=== PATIENT | female | born 1945 | race Caucasian/White ===

== ENCOUNTER 2019-11-20 09:53 | Day surgery (SDC) | payer OTHER ==
[2019-11-17 11:18] LABS: Absolute Lymphocytes (CBC) 2.1 K/uL (0.7-4.9); Basophils % 0.7 % (0-1.3); Hematocrit 44.4 % (36.0-45.0); Lymphocytes % 36.6 % (15.3-44.8); MPV 9.4 fL (7.6-11.3); RBC Red Blood Cell Count 4.84 M/uL (3.86-4.86)
--- NOTE | 2019-11-17 11:23 | RAD REPORT ---
EXAM DESCRIPTION: Constantino Mejia (2 Views)11/17/2019 10:24 am CLINICAL HISTORY: Rectal cancer/lymphoma/preop for cyst removal surgery from arm COMPARISON: None FINDINGS: The lungs appear clear of acute infiltrate. The heart is mildly enlarged IMPRESSION: No acute abnormalities displayed
[2019-11-17 11:30] LABS: Potassium 3.3 mmol/L (3.5-5.1)
--- NOTE | 2019-11-19 07:52 | EKG ---
Test Date: 2019-11-17 Test Time: 10:40:21 Roving Weight Gauger: LELO MEASUREMENT RESULTS: Intervals: Rate: 44 ID: [id number] QRSD: 150 QT: 502 QTc: 429 [place]: P: 76 ID: [id number] QRS: -62 T: -30 INTERPRETIVE STATEMENTS: Marked sinus bradycardia Right bundle branch block Left anterior fascicular block Bifascicular block Minimal voltage criteria for LVH, may be normal variant T wave abnormality, consider lateral ischemia Abnormal ECG No previous ECG available for comparison Electronically Signed On 11-19-19 07:50:10 REQUIREMENTS ANALYST by Anthony Ramirez
--- OUTSIDE RECORDS SUMMARY | 2019-11-20 09:57 | XMS REPORT ---
:1945 [facility] Ja Lisa [address] [place] [id number] Care Team Providers Name Role Phone Unavailable Unavailable Unavailable Problems This patient has no known problems. Allergies, Adverse Reactions, Alerts This patient has no known allergies or adverse reactions. Medications This patient has no known medications.
[2019-11-20] MEDS ORDERED: Ringers Lactate 1,000 ML IV ONE (10:34)
[2019-11-20] MEDS ORDERED: MIDAZOLAM HCL 2 MG/2 ML INJ ONE (10:53)
[2019-11-20] MEDS ORDERED: propofoL 200 MG/20 ML VIAL IV ONE (10:53)
[2019-11-20] MEDS ORDERED: FENTANYL CITR 100 MCG/2 ML ONE (10:53)
[2019-11-20] MEDS ORDERED: LIDOCAINE 2% MPF 5 ML VIAL ONE (10:54)
[2019-11-20] MEDS ORDERED: ONDANSETRON 4 MG/2 ML VIAL ONE (10:55)
[2019-11-20] MEDS ORDERED: BUPIVACAINE 0.5% PF 10 ML VIAL ONE (11:29)
[2019-11-20] MEDS ORDERED: CEFAZOLIN/SWI 1gm 1 GM/10 ML SYR ONE (11:34)
[2019-11-20] MEDS ORDERED: GLYCOPYRROLATE 0.2 MG/ML SYR ONE (11:45)
[2019-11-20] MEDS ORDERED: EPHEDRINE SULF 50 MG/ML VIAL ONE (11:46)
--- NOTE | 2019-11-20 12:19 | P.BOP ---
Preoperative diagnosis: right lateral proximal forearm and right medial antecubital subQ mass Postoperative diagnosis: same Primary procedure: 1. Excisional biopsy tender right lateral proximal forearm subQ mass 3x3cm Secondary procedure: 2. Excisional biopsy tender right medial antecubital subQ mass 5x5cm Operations Support Manager: Eileen Josue (Junior) Estimated blood loss: <10cc Specimen: mas x 2 Findings: as above Anesthesia: General Complications: None Transferred to: Recovery Room Condition: Good
[2019-11-20 14:37] VITALS: BP 93/70; TEMP 96.9; O2SAT 96
--- NOTE | 2019-11-20 23:06 | OP ---
Date of Procedure: 11/20/2019 Surgeon: Domingo Ruelas MD Diagnosis: Forearm and antecubital masses. Procedure: Excisional biopsy of forearm and antecubital tender masses. Disposition: Home. Activity: As tolerated. No heavy lifting. Followup: Follow up in my office in 1 week. Call for appointment [phone]. Discharge Instructions: Keep the area dry for 48 hours, then may shower. May replace gauze after th at. Medications: Include Tylenol No. 3 q.4 hours p.r.n. pain and Cipro 500 p.o. q.12. ANIL/KAELA Voice ID: [id number] Report ID: [id number]
--- NOTE | 2019-11-20 23:06 | OP ---
Date of Procedure: 11/20/2019 Surgeon: Domingo Ruelas MD Pharmacy Innovation Assistant: CAMPBELL Gonsalez. Diagnoses: Right lateral proximal forearm and right medial antecubital subcutaneous masses. Postoperative Diagnoses: Right lateral proximal forearm and right medial antecubital subcutaneous ma sses. Procedures: 1.Excisional biopsy of tender right lateral proximal forearm subcutaneous mass, 3 x 3 cm. 2.Excisional biopsy of tender right medial antecubital subcutaneous mass, 5 x 5 cm. Estimated Blood Loss: Less than 10 mL. Specimen: Masses x2. Anesthesia: General plus local. Indication: This is the case of a female who comes to us with 2 tender masses on the antecubital and proximal forearm region, medial and lateral. The mass are increasing in size, giving her pain and d iscomfort. She wants it excised. Benefits, alternatives, and risks of excision fully explained whic h include but are not limited to infection, bleeding, damage to adjacent structures, anesthesia compl ication, recurrence, NM, and even . She also understands this may not relieve any symptoms. Sh e might need more than one surgical intervention. She understand. The area of concern was marked by me and the patient in the holding room. Description Of Procedure: Patient was brought to the operating room, placed in supine position anest hesia was without complication. Right forearm was prepped and draped in sterile fashion. A time-out was called. We proceeded to go to the lateral side first on the proximal forearm region. The incis ion was made and the skin incision was carried down carefully to the subcutaneous tissue, and then we noticed the patient to have a fatty tumor in that region. It goes all the way down to fascia, does not penetrate the fascia. It was not adhere to the fascia and was not to the muscle neither. The ma ss was completely excised. The area was irrigated. Hemostasis obtained. The area of this was close d with 3-0 chromic and 3-0 nylon. We went to the medial side, it was found to be bigger incision, be cause the bigger mass, incision was carried down all the way down to antecubital area fossa and we no ticed this mass once again, the fatty tumor go in that area. Fascia, muscle does not involve. Mass was completely excised, enucleated. Area was irrigated and then we proceeded to close with 3-0 chrom ic and 3-0 nylon. After, irrigation and hemostasis was obtained on both sides. Sponge count and ins trument counts were correct. The patient tolerated the procedure well. Patient was sent to recovery in stable condition. ANIL/KAELA Voice ID: [id number] Report ID: [id number]
== END 2019-11-20 14:20 | disposition home or self-care (01) ==
LOC: OR 09:53
PROVIDERS: ATTEND Surgery
PROC: 0JBG0ZZ Excision of Right Lower Arm Subcutaneous Tissue and Fascia, Open Approach (ICD-10-PCS; 2019-11-20)
PROC: 0JBG0ZZ Excision of Right Lower Arm Subcutaneous Tissue and Fascia, Open Approach (ICD-10-PCS; principal; 2019-11-20 12:15)
DX: D17.21 Benign lipomatous neoplasm of skin and subcutaneous tissue of right arm (principal); I10 Essential (primary) hypertension; E78.00 Pure hypercholesterolemia, unspecified; K21.9 Gastro-esophageal reflux disease without esophagitis; G47.33 Obstructive sleep apnea (adult) (pediatric); K58.9 Irritable bowel syndrome, unspecified; E66.01 Morbid (severe) obesity due to excess calories; Z68.41 Body mass index [BMI] 40.0-44.9, adult; Z88.2 Allergy status to sulfonamides; Z85.048 Personal history of other malignant neoplasm of rectum, rectosigmoid junction, and anus; Z85.72 Personal history of non-Hodgkin lymphomas; Z90.710 Acquired absence of both cervix and uterus; Z90.49 Acquired absence of other specified parts of digestive tract; Z87.891 Personal history of nicotine dependence; Z83.3 Family history of diabetes mellitus; Z82.49 Family history of ischemic heart disease and other diseases of the circulatory system
CPT/HCPCS: 93005; 85025; 80048; 36415; 88305; 71046; 25071 ×2; J2704; J2250; J3010; J0690; J7120; J2405

== ENCOUNTER 2020-01-03 19:31 | Inpatient (IN) | payer OTHER ==
--- OUTSIDE RECORDS SUMMARY | 2020-01-03 19:34 | XMS REPORT ---
:1945 [facility] Ja Lisa [address] [place] [address] Care Team Providers Name Role Phone Unavailable Unavailable Unavailable Problems This patient has no known problems. Allergies, Adverse Reactions, Alerts This patient has no known allergies or adverse reactions. Medications This patient has no known medications.
[2020-01-03] MEDS ORDERED: ONDANSETRON 4 MG/2 ML VIAL ONE ×2 (20:31→22:38)
[2020-01-03] MEDS ORDERED: NA CHLORIDE 0.9% 500 ML ONE (20:31)
[2020-01-03] MEDS ORDERED: MORPHINE 4 MG/ML SYR ONE (20:31)
[2020-01-03 20:37] LABS: Absolute Lymphocytes (CBC) 3.1 K/uL (0.7-4.9); Basophils % 0.2 % (0-1.3); Hematocrit 52.7 % (36.0-45.0); Lymphocytes % 16.9 % (15.3-44.8); MPV 9.3 fL (7.6-11.3); RBC Red Blood Cell Count 5.72 M/uL (3.86-4.86)
[2020-01-03 20:56] LABS: ALT/SGPT 41 U/L (12-78); AST/SGOT 31 U/L (15-37); Albumin 3.5 g/dL (3.4-5.0); Alkaline Phosphatase 80 U/L (45-117); BUN Blood Urea Nitrogen 51 mg/dL (7-18); Bicarbonate 32 mmol/L (21-32); Bilirubin Direct 0.3 mg/dL (0-0.2); Bilirubin Total 1.1 mg/dL (0.2-1.0); Glucose Level 136 mg/dL (74-106); Lipase 206 U/L (73-393); Potassium 3.7 mmol/L (3.5-5.1); Protein, Total 7.7 g/dL (6.4-8.2); Sodium Level 137 mmol/L (136-145); Troponin (Emerg Dept Use Only) < 0.02 ng/mL (0.0-0.045)
--- NOTE | 2020-01-03 21:36 | RAD REPORT ---
EXAM DESCRIPTION: US - Abdomen Exam Limited - 01/03/2020 8:42 pm CLINICAL HISTORY: EPIGASTRIC PAIN COMPARISON: Abdomen Pelvis Wo Contrast dated 01/03/2020 FINDINGS: Gallbladder is partially contracted which limits assessment. Patient indicates she has bee n able to tolerate only a small amount of p.o. intake over the last 4 days. Wall thickness is accentu ated due to contracted state. There is a questionable moderate to large sized stone in the fundus. No common duct stone or biliary tree dilatation identified. IMPRESSION: Gallbladder assessment is considered limited due to contraction. A stone in the fundus of the gallbladder cannot be excluded. Follow-up ultrasound of the gallbladder after additional fasting may allow for for better distention of the gallbladder. No duct stone or biliary tree dilatation.
[2020-01-03] MEDS ORDERED: PIPER/TAZO/NS 3.375gm 3.375 GM/100 ML BAG ONE (22:19)
--- NOTE | 2020-01-03 22:32 | ER ---
Nurse's Notes [facility] Name: Layla Rivas Age: 74 yrs Sex: Female : 1945 Arrival Date: 01/03/2020 Time: 19:32 Bed 18 Private MD: Diagnosis: Small Bowel Obstruction Presentation: 01/02 19:50 Chief complaint: Patient states: Vomiting since Wednesday, Reports Hiccups and belching. ca1 Reports unable to tolerate food and fluids. Called PCP and prescribed Zofran, but it's not helping. Denies fever and diarrhea. Reports abdominal pain. Coronavirus screen: The patient has NOT traveled to a country currently being monitored by the [facility] within the last 14 days. The patient has NOT had contact with any known and/or suspected case of coronavirus. Ebola Screen: Patient negative for fever greater than or equal to 101.5 degrees Fahrenheit, and additional compatible Ebola Virus Disease symptoms Patient denies exposure to infectious person. Patient denies travel to an Ebola-affected area in the 21 days before illness onset. No symptoms or risks identified at this time. Initial Sepsis Screen: Does the patient meet any 2 criteria? No. Patient's initial sepsis screen is negative. Does the patient have a suspected source of infection? No. Patient's initial sepsis screen is negative. Risk Assessment: Do you want to hurt yourself or someone else? Patient reports no desire to harm self or others. Onset of symptoms was January 01, 2020. 19:50 Method Of Arrival: Ambulatory ca1 19:50 Acuity: ANTONIA 3 ca1 Historical: - Allergies: 19:54 Erythromycin; ca1 19:54 Bactrim; ca1 19:54 Pamelor; ca1 - Home Meds: 01/03 01:19 lyrica [Active]; Tramadol Oral [Active]; mg2 - PMHx: 01:19 Hypertension; follicular lymphoma; rectal ca; mg2 - PSHx: 01:19 Hysterectomy; mg2 - Immunization history:: Adult Immunizations up to date, Pneumococcal vaccine is up to date, Flu vaccine is up to date. - Social history:: Smoking status: Patient denies any tobacco usage or history of. Screenin/18 21:06 Abuse screen: Denies threats or abuse. Denies injuries from another. Nutritional mg2 screening: No deficits noted. Tuberculosis screening: No symptoms or risk factors identified. Fall Risk IV access (20 points). Assessment: 21:05 General: Appears in no apparent distress. comfortable, Behavior is calm, cooperative. mg2 Pain: Complains of pain in left upper quadrant and right upper quadrant. Neuro: Level of Consciousness is awake, alert, obeys commands, Oriented to person, place, time, situation. Cardiovascular: Capillary refill < 3 seconds Patient's skin is warm and dry. Respiratory: Airway is patent Respiratory effort is even, unlabored, Respiratory pattern is regular, symmetrical. GI: Abdomen is round non-distended, Reports lower abdominal pain, nausea, vomiting. : No signs and/or symptoms were reported regarding the genitourinary system. EENT: No signs and/or symptoms were reported regarding the EENT system. Derm: Skin is intact, is healthy with good turgor, Skin is pink, warm \T\ dry. normal. Musculoskeletal: Circulation, motion, and sensation intact. Capillary refill < 3 seconds. 22:39 Reassessment: Patient appears in no apparent distress at this time. Patient and/or mg2 family updated on plan of care and expected duration. Pain level reassessed. Patient is alert, oriented x 3, equal unlabored respirations, skin warm/dry/pink. seen by Dr Funk, hospitalist and advised for admission,. 23:58 Reassessment: Patient appears in no apparent distress at this time. Patient and/or mg2 family updated on plan of care and expected duration. Pain level reassessed. Patient is alert, oriented x 3, equal unlabored respirations, skin warm/dry/pink. Vital Signs: 19:50 BP 115 / 75; Pulse 73; Resp 16 S; Temp 97.5(TE); Pulse Ox 94% on R/A; Weight 107.5 kg ca1 (R); Height 5 ft. 2 in. (157.48 cm) (R); Pain 6/10; 22:37 BP 118 / 70; Pulse 66; Resp 18; Pulse Ox 98% on R/A; mg2 23:58 BP 116 / 56; Pulse 75; Resp 18; Pulse Ox 97% on R/A; mg2 19:50 Body Mass Index 43.35 (107.50 kg, 157.48 cm) ca1 ED Course: 19:32 Patient arrived in ED. cl3 19:53 Triage completed. ca1 19:54 Arm band placed on right wrist. ca1 19:56 [facility] Diaz [facility]. jmm 19:56 Rakesh Wahl MD is Attending Physician. jmm 20:24 Wilbur Marie RN is Primary Nurse. mg2 20:27 Inserted saline lock: 22 gauge in left forearm, using aseptic technique. Blood rv collected. 20:27 Initial lab(s) drawn, by me, sent to lab. rv 20:43 US Abdomen Limited In Process Unspecified. EDMS 20:50 Radiology exam delayed due to lab results not completed at this time. (BUN/Creatinine). vm2 21:07 Patient has correct armband on for positive identification. mg2 21:07 No provider procedures requiring assistance completed. mg2 21:37 Abdomen In Process Unspecified. EDMS 22:29 Juwan Funk MD is Hospitalizing Provider. jmm 22:37 Patient admitted, IV remains in place. mg2 01/03 00:21 NGT: inserted 16 Fr. via right nare. verified return of gastric contents, to mg2 intermittent suction. Returned gastric contents. Patient tolerated well. Administered Medications: 01/02 20:40 Drug: morphine 4 mg Route: IVP; Site: left forearm; mg2 22:21 Follow up: Response: No adverse reaction mg2 20:40 Drug: Zofran (Ondansetron) 4 mg Route: IVP; Site: left forearm; mg2 22:21 Follow up: Response: No adverse reaction mg2 20:40 Drug: NS 0.9% 500 ml Route: IV; Rate: bolus; Site: left forearm; mg2 01/03 01:46 Follow up: Response: No adverse reaction; IV Status: Completed infusion; IV Intake: mg2 500ml 01/02 22:20 Drug: Zosyn 3.375 grams Route: IVPB; Infused Over: 60 mins; Site: left forearm; mg2 01/03 00:21 Follow up: Response: No adverse reaction; IV Status: Completed infusion mg2 01/02 22:36 Drug: Zofran (Ondansetron) 4 mg Route: IVP; Site: left forearm; mg2 01/03 00:20 Follow up: Response: No adverse reaction mg2 Intake: 01:46 IV: 500ml; Total: 500ml. mg2 Output: 01:45 Gastric: 200ml (NGT); Total: 200ml. mg2 Outcome: 01/02 22:31 Decision to Hospitalize by Provider. roni 01/03 01:24 Admitted to Med/surg accompanied by tech, via wheelchair, room 206, Report called to alton Junior RN Condition: stable Instructed on the need for admit, Demonstrated understanding of instructions. 01:46 Patient left the ED. alton Signatures: Dispatcher [employer] EDMS Fabio Diaz PA PA [facility] Wilbur Marie RN RN mg2 Martínez Rick RN RN Marilyn Chávez RN RN ca1 Edwin Goodrich cl3
--- NOTE | 2020-01-03 22:32 | EDPHYS ---
Physician Documentation [facility] Name: Layla Rivas Age: 74 yrs Sex: Female : 1945 Arrival Date: 01/03/2020 Time: 19:32 Bed 18 Private MD: RUSSELL Physician Rakesh Wahl HPI: 01/02 20:15 This 74 yrs old Female presents to ER via Ambulatory with complaints of jmm Vomiting. 20:15 The patient presents to the emergency department with nausea, vomiting, abdominal pain. jmm Onset: The symptoms/episode began/occurred gradually, 1 day(s) ago. Possible causes: unknown. The symptoms are aggravated by nothing. The symptoms are alleviated by nothing. Associated signs and symptoms: Pertinent positives: belching, Pertinent negatives: diarrhea. This is a 74 year old female with a history of rectal cancer that presents to the ED with complaints of generalized abdominal pain and multiple episodes of vomiting. Denies diarrhea. . Historical: - Allergies: 19:54 Erythromycin; ca1 19:54 Bactrim; ca1 19:54 Pamelor; ca1 - Home Meds: 01/03 01:19 lyrica [Active]; Tramadol Oral [Active]; mg2 - PMHx: 01:19 Hypertension; follicular lymphoma; rectal ca; mg2 - PSHx: 01:19 Hysterectomy; mg2 - Immunization history:: Adult Immunizations up to date, Pneumococcal vaccine is up to date, Flu vaccine is up to date. - Social history:: Smoking status: Patient denies any tobacco usage or history of. ROS: 01/02 20:15 Constitutional: Negative for fever, chills, and weight loss, Cardiovascular: Negative jmm for chest pain, palpitations, and edema, Respiratory: Negative for shortness of breath, cough, wheezing, and pleuritic chest pain. Abdomen/GI: Positive for abdominal pain, nausea and vomiting. All other systems are negative. Exam: 20:15 Constitutional: This is a well developed, well nourished patient who is awake, alert, jmm and in no acute distress. Head/Face: atraumatic. Eyes: EOMI, no conjunctival erythema appreciated ENT: Moist Mucus Membranes Neck: Trachea midline, Supple Chest/axilla: Normal chest wall appearance and motion. Cardiovascular: Regular rate and rhythm. No edema appreciated Respiratory: Normal respirations, no respiratory distress appreciated 20:15 Back: Normal ROM Skin: General appearance color normal MS/ Extremity: Moves all extremities, no obvious deformities appreciated, no edema noted to the lower extremities Neuro: Awake and alert, normal gait Psych: Behavior is normal, Mood is normal, Patient is cooperative and pleasant 20:15 Abdomen/GI: Inspection: obese Bowel sounds: normal, Palpation: soft, moderate abdominal tenderness, in the right upper quadrant and left upper quadrant. 20:15 Back: Vital Signs: 19:50 BP 115 / 75; Pulse 73; Resp 16 S; Temp 97.5(TE); Pulse Ox 94% on R/A; Weight 107.5 kg ca1 (R); Height 5 ft. 2 in. (157.48 cm) (R); Pain 6/10; 22:37 BP 118 / 70; Pulse 66; Resp 18; Pulse Ox 98% on R/A; mg2 23:58 BP 116 / 56; Pulse 75; Resp 18; Pulse Ox 97% on R/A; mg2 19:50 Body Mass Index 43.35 (107.50 kg, 157.48 cm) ca1 MDM: 20:02 Patient medically screened. [facility] 22:06 Data reviewed: vital signs, nurses notes. Counseling: I had a detailed discussion with [facility] the patient and/or guardian regarding: the historical points, exam findings, and any diagnostic results supporting the discharge/admit diagnosis. ED course: I discussed the patient with Radiology. SBO, transition right lower quadrant. . 22:29 Counseling: I had a detailed discussion with the patient and/or guardian regarding: [facility] radiology results, the need for further work-up and treatment in the hospital. ED course: I discussed the patient with Dr. Ruelas whom will consult on admission. I discussed the patient with Dr. Funk whom accepted admission. . 01/02 20:15 Order name: Basic Metabolic Panel [facility] 01/02 20:15 Order name: CBC with Diff; Complete Time: 20:43 [facility] 01/02 20:15 Order name: Creatinine for Radiology; Complete Time: 20:55 [facility] 01/02 20:15 Order name: Hepatic Function; Complete Time: 20:57 [facility] 01/02 20:15 Order name: Lipase; Complete Time: 20:57 [facility] 01/02 20:15 Order name: Troponin (emerg Dept Use Only); Complete Time: 20:57 [facility] 01/02 20:15 Order name: Basic Metabolic Panel; Complete Time: 20:57 [facility] 01/02 23:23 Order name: Urinalysis W/Microscopic [facility] 01/02 23:23 Order name: UR CREAT [facility] 01/02 23:23 Order name: UR SODIUM [facility] 01/02 23:23 Order name: CBC with Automated Diff [facility] 01/02 23:23 Order name: CBC with Automated Diff [facility] 01/02 23:23 Order name: Comprehensive Metabolic Panel [facility] 01/02 23:23 Order name: Comprehensive Metabolic Panel [facility] 01/02 20:15 Order name: IV Saline Lock; Complete Time: 20:34 [facility] 01/02 20:15 Order name: Labs collected and sent; Complete Time: 20:34 [facility] 01/02 20:15 Order name: US Abdomen Limited; Complete Time: 21:46 [facility] 01/02 21:01 Order name: Abdomen [facility] 01/02 22:09 Order name: NG Tube; Complete Time: 00:20 [facility] 01/02 23:23 Order name: CONS Pharmacy Consult [facility] 01/02 23:23 Order name: CONS Physician Consult [facility] 01/02 23:23 Order name: CONS Physician Consult [facility] 01/02 23:23 Order name: NPO EDVT Administered Medications: 20:40 Drug: morphine 4 mg Route: IVP; Site: left forearm; mg2 22:21 Follow up: Response: No adverse reaction mg2 20:40 Drug: Zofran (Ondansetron) 4 mg Route: IVP; Site: left forearm; mg2 22:21 Follow up: Response: No adverse reaction mg2 20:40 Drug: NS 0.9% 500 ml Route: IV; Rate: bolus; Site: left forearm; mg2 01/03 01:46 Follow up: Response: No adverse reaction; IV Status: Completed infusion; IV Intake: mg2 500ml 01/02 22:20 Drug: Zosyn 3.375 grams Route: IVPB; Infused Over: 60 mins; Site: left forearm; mg2 01/03 00:21 Follow up: Response: No adverse reaction; IV Status: Completed infusion mg2 01/02 22:36 Drug: Zofran (Ondansetron) 4 mg Route: IVP; Site: left forearm; mg2 01/03 00:20 Follow up: Response: No adverse reaction mg2 Disposition: 07:39 Co-signature as Attending Physician, Rakesh Wahl MD I agree with the assessment and [facility] plan of care. Disposition: 01/03/20 22:31 Hospitalization ordered by Juwan Funk for Inpatient Admission. Preliminary diagnosis is Small Bowel Obstruction. - Bed requested for Telemetry/MedSurg (Inpatient). - Status is Inpatient Admission. mg2 - Condition is Stable. - Problem is new. - Symptoms are unchanged. Signatures: Dispatcher [employer] [facility] Rakesh Wahl MD MD cha Mickail, Joel, PA PA [facility] Maya Ayala, RN RN tl1 Wilbur Marie, RN RN mg2 Marilyn Mota RN RN ca1 Corrections: (The following items were deleted from the chart) 01/02 21:01 20:15 Abdomen Pelvis W Con+CT.RAD.BRZ ordered. [facility] 01/03 01:06 01/02 22:31 Hospitalization Ordered by Juwan Funk MD for Inpatient Admission. tl1 Preliminary diagnosis is Small Bowel Obstruction. Bed requested for Telemetry/MedSurg (Inpatient). Status is Inpatient Admission. Condition is Stable. Problem is new. Symptoms are unchanged. [facility] 01/03 01:46 01:06 01/03/2020 22:31 Hospitalization Ordered by Juwan Funk MD for Inpatient mg2 Admission. Preliminary diagnosis is Small Bowel Obstruction. Bed requested for Telemetry/MedSurg (Inpatient). Status is Inpatient Admission. Condition is Stable. Problem is new. Symptoms are unchanged. tl1
[2020-01-03] MEDS ORDERED: ALBUTEROL 2.5 MG/3 ML NEB SOL NEB PRN (23:17)
[2020-01-03] MEDS ORDERED: ONDANSETRON 4 MG/2 ML VIAL IV PRN (23:17)
[2020-01-03] MEDS ORDERED: HYDRALAZINE HCL 20 MG/ML VIAL IV PRN (23:17)
--- NOTE | 2020-01-04 01:48 | HP ---
Date of Admission: 01/03/2020 Presenting Complaint: Abdominal cramps and nausea and vomiting. History Of Present Illness: Ms. Rivas is a 74-year-old female with past medical history of rectal cancer, status post ileostomy with reversal later done 3 years ago, recent lipoma excision fr om the right arm 1 month ago, presented with recurrent nausea and vomiting since the last 4 days. Sh e admits to not having any bowel movement since the last 6 days. Symptoms continued to worsen and be came associated with abdominal cramps in the mid abdomen and nonradiating. On presentation in the ED , she denies any fever or chills. She denies any cough. A CT of the abdomen shows evidence of small bowel obstruction with unknown transition point. She has been admitted for SBO. Past Medical History: Significant for hypertension, rectal cancer. Past Surgical History: Hysterectomy as well as colon resection with ileostomy and recent ileostomy r eversal, status post lipoma excision from the right arm. Allergies: ERYTHROMYCIN WELL BACTRIM AND PAMELOR OR NORTRIPTYLINE. Home Medications: Patient unsure but states she takes triamterene as well as nadolol q.h.s., but uns ure of dose. will bring medications later. Review of Systems: All systems reviewed x14 were negative except as mentioned above. Family History: Noncontributory. Physical Examination: Current Vital Signs: Blood pressure of 121/76, pulse of 68, respiratory rate 16, temperature 97.5, O 2 sats 94 on room air. Weight 107 kg. General: Obese, elderly female, having intermittent nauseous feeling. HEENT: Head is atraumatic, normocephalic. Pupils equal, reactive to light. Anicteric. Dry oral mu cosa, but no mucosal patches. Neck: No JVD. No carotid bruit. Respiratory: Good air entry. No crepitation. Cardiovascular: S1, S2. Rate and rhythm regular. GI: Abdomen mildly distended, but not ascites. Bowel sounds normal in the upper quadrant, but decre ased at the right lower base. No tenderness. No rebound elicited. Rectal: Deferred. Extremities: Varicose veins noted with trace pedal edema. No calf tenderness. Neurologic: Patient is alert, oriented. Cranial nerves 2 through 12 grossly intact. Laboratory Data: WBC of 18.3, hemoglobin 17, neutrophils 72%, no bands, platelets 236. Creatinine 1 .71, sodium 137, potassium 3.7, BUN 51. AST and alkaline phosphatase normal. Albumin 3.5, lipase 20 6. Right upper quadrant ultrasound shows no evidence of biliary stone. CT of the abdomen also done, full report pending, but reportedly a small bowel obstruction noted. Impression: 1.Small bowel obstruction likely due to adhesions. 2.History of hypertension. 3.Acute renal failure. Plan: We will admit patient to inpatient status. We start gentle IV fluid hydration. We will obtai n magnesium level and correct if low. We will do gentle IV fluid hydration. We will consult Nephrol ogy to follow in the morning. We consult patient's surgeon Dr. Ruelas. Monitor. We do n.p.o. sta tus with bowel rest. We continue antiemetics. If persistent vomiting, we will place NG tube. Mild leukocytosis noted, but likely due to dehydration. Expected to improve with hydration. We do subcut aneous Lovenox for DVT prophylaxis. If the persistent nonresolving symptoms in the next 48 hours, seymour acevedo might benefit from surgical intervention. Advanced directives, patient is full code. Total time spent in review of record, discussion with patient and spouse, greater than 60 minutes. EO/MODL Voice ID: [id number]
[2020-01-04] MEDS ORDERED: LORazepam 2 MG/ML VIAL IV ONE (02:55)
[2020-01-04] MEDS: ONDANSETRON 4 MG/2 ML VIAL IV PRN (03:19)
[2020-01-04 06:20] LABS: Absolute Lymphocytes (CBC) 2.2 K/uL (0.7-4.9); Basophils % 0.1 % (0-1.3); Hematocrit 49.9 % (36.0-45.0); Lymphocytes % 17.2 % (15.3-44.8); MPV 9.6 fL (7.6-11.3); RBC Red Blood Cell Count 5.52 M/uL (3.86-4.86)
[2020-01-04] MEDS ORDERED: NA CHLORIDE 0.9% 1,000 ML IV SCH (08:00)
[2020-01-04 08:10] LABS: Urine Appearance CLEAR; Urine Bilirubin NEGATIVE (NEG); Urine Blood NEGATIVE (NEG); Urine Color YELLOW; Urine Glucose NEGATIVE (NEG); Urine Protein NEGATIVE (NEG); Urine Urobilinogen 0.2 mg/dL (0.2-1.0); Urine pH 5.5 (5.0-7.0)
[2020-01-04] MEDS: ENOXAPARIN 30 MG/0.3 ML SQ SCH (08:22)
[2020-01-04] MEDS: FAMOTIDINE 20 MG/2 ML VIAL IV SCH ×2 (08:22→21:00)
[2020-01-04 08:34] LABS: Albumin 3.1 g/dL (3.4-5.0); Potassium 3.3 mmol/L (3.5-5.1); Protein, Total 6.9 g/dL (6.4-8.2)
[2020-01-04 09:29] LABS: Urine Bacteria <20 /HPF (<20); Urine Culture Reflex Order REFLEXED; Urine RBC <5 /HPF (NONE SEEN)
--- NOTE | 2020-01-04 11:54 | RAD REPORT ---
EXAM DESCRIPTION: CT - Abdomen Pelvis Wo Contrast - 01/04/2020 5:32 am CLINICAL HISTORY: The patient is 74 years old and is Female; abdominal pain TECHNIQUE: Axial computed tomography images of the abdomen and pelvis without intravenous contrast. Sagittal and coronal reformatted images were created and reviewed. This CT exam was performed usi ng one or more of the following dose reduction techniques: automated exposure control, adjustment o f the mA and/or kV according to patient size, and/or use of iterative reconstruction technique. DLP: 1731 mGy*cm COMPARISON: None. FINDINGS: LUNG BASES: Mild bibasilar atelectasis versus scarring. Multiple 2 mm nodules in the ri ght lower lobe. No routine follow-up is recommended. HEART: Visualized heart is normal in size. ABDOMEN: LIVER: Unremarkable. GALLBLADDER AND BILE DUCTS: Cholelithiasis without pericystic fluid. No ductal dilation. PANCREAS: Unremarkable. No ductal dilation. SPLEEN: Unremarkable. No splenomegaly. ADRENALS: Unremarkable. No mass. KIDNEYS AND URETERS: Bilateral renal cysts measuring up to 5 cm on the right. Bilateral renal atro phy. No hydronephrosis. STOMACH AND BOWEL: Status post partial colectomy and right lower quadrant ostomy takedown. Diffuse distention of proximal small bowel loops with multiple air-fluid level, wall thickening and surround ing stranding. Additional point in the region of the right lower quadrant. PELVIS: APPENDIX: The appendix is seen and is within normal limits BLADDER: Bladder is decompressed. No stones. REPRODUCTIVE: Prior hysterectomy. ABDOMEN and PELVIS: INTRAPERITONEAL SPACE: Unremarkable. No free air. No significant fluid collection. BONES/JOINTS: Diffuse osteopenia and multilevel degenerative changes. No acute fracture. No dislocation. SOFT TISSUES: Fat-containing ventral hernia. VASCULATURE: Unremarkable. No abdominal aortic aneurysm. LYMPH NODES: Unremarkable. No enlarged lymph nodes. IMPRESSION: 1. Findings most compatible with small bowel obstruction with transitional point in th e right lower abdomen. No perforation. 2. Prior distal and partial colectomy and right lower quadrant ostomy takedown and directly anastom osis. 3. Cholelithiasis without pericystic fluid. 4. Bilateral renal cysts. THIS REPORT CONTAINS FINDINGS THAT MAY BE CRITICAL TO PATIENT'S CARE: The findings were verbally discussed via telephone conference with STAR SHEPARD by Dr. Lei on 10:07 PM CDT. The results were acknowledged and understood. Electronically signed by: Luis Lei DO 01/03/2020 10:11 PM CDT Due to temporary technical issues with the PACS/Fluency reporting system, reports are being signed by the in house radiologist as a courtesy to ensure prompt reporting. The interpreting radiologist is f ully responsible for the content of the report.
--- NOTE | 2020-01-04 12:33 | CON ---
Date of Consultation: 01/04/2020 Reason For Consultation: Elevated BUN, creatinine, hyperkalemia. History Of Present Illness: This is a pleasant 74-year-old female with significant past medical hist ory of rectal cancer, status post surgery, radiation and chemotherapy back in 2007, last chemo in 200 9, hypertension, the patient came to the hospital complaining from abdominal pain, nausea and vomitin g for the last few days. Primary workup show small-bowel obstruction and elevated BUN and creatinine . For that reason, we have been consulted. Patient admits taking nonsteroidals on the last few days to control her pain. Denied any recent IV contrast exposure or antibiotics. No recent change in he r medication. Patient over the night was started on IV hydration, kidney function started being improving. CT did not show any obstruction. Past Medical History: 1.Hypertension. 2.Rectal CA status post resection, status post chemo and radiation, diagnosis was 2007, last chemo 2 009. Past Surgical History: 1.Hysterectomy. 2.Ileostomy. 3.Bone marrow removal. Allergy: Erythromycin. Home Medications: Include: 1.Nadolol. 2.KCl. 3.Diphenhydramine. 4.Multivitamin. 5.Albuterol. 6.Tramadol. 7.Linzess. 8.Pravastatin. 9.Triamterene and hydrochlorothiazide. 10.Lyrica. Current Medications: The patient on include: 1.Lovenox. 2.Hydralazine. 3.Morphine. 4.IV fluid. Family History: Positive for hypertension. Social History: Lives with family. Denies smoking. Denies drinking. Denies drugs abuse. Review of Systems: Head and Neck: No red eye. No ear pain. GI: Has nausea, vomiting, has abdominal pain. : Decreased urine output. [employer]: No vaginal discharge. Respiratory: No shortness of breath. Cardiovascular: No chest pain. Endocrine: No polydipsia. Skin: No rash. Neuro: Has generalized weakness. Musculoskeletal: No joint pain. Physical Examination: Vital Signs: When I saw the patient blood pressure 118/62, patient did not have any low blood pressu re, pulse of 64. Afebrile. Chest: Clear to auscultation. Heart: S1, S2. Regular rhythm. Abdomen: Soft. Mild tenderness. No guarding or rebound. Extremity: Had trace edema. Neurological: Alert, and oriented x3. No focal. Laboratory Data: WBC 12.5, H and H 16.4/49.9, platelets of 200. Sodium 142, potassium 3.3, bicarb 3 1, BUN 46, creatinine 1.4, calcium 9.9, albumin 3.1. Upon arrival to the hospital, calcium 10.3, alb umin 3.5, corrected calcium is 11. Potassium 3.7, creatinine 1.7, GFR of 29. H and H 17.1/52.7. Ur inalysis, specific gravity of 1.020, negative for infection. Urine sodium of 8. Urine creatinine of 129. CT abdomen did not show any obstructive uropathy. Assessment And Plan: 1.Acute kidney injury secondary to prerenal, secondary to poor intake superimposed with nonsteroidal use and trimethoprim and hydrochlorothiazide, prerenal, still look to me on the dry side. I am shari g to go ahead and increase her IV fluid to 125 and we will monitor given the hypokalemia. I am going to go ahead and add potassium as supplement. We will follow up the patient. 2.Hypokalemia secondary to gastrointestinal loss, poor intake. We will supplement. 3.Hypercalcemia secondary to dehydration and hydrochlorothiazide, resolved. Continue hydration. CARRIE/KAELA Voice ID: [id number] Report ID: [id number]
[2020-01-04] MEDS: NA CHLORIDE 0.9% 1,000 ML with POTASSIUM CL 20 MEQ IV SCH ×4 (12:49→21:35)
--- NOTE | 2020-01-04 14:12 | P.PN ---
Subjective Date of Service: 01/04/20 Primary Care Provider: Dr. Hughes Chief Complaint: Nausea, vomiting abdominal pain Subjective: Other (Pain has slightly improved since NG tube placed. No passage of stool or gas.) Physical Examination - Vital Signs Temperature: 97.6 F Blood Pressure: 114/58 Pulse: 58 Respirations: 14 Pulse Ox (%): 91 - Physical Exam General: Alert, Cooperative HEENT: Atraumatic Neck: Supple, Other (NG tube in place) Respiratory: Clear to auscultation bilaterally, Normal air movement Cardiovascular: Normal pulses, Regular rate/rhythm Gastrointestinal: Hypoactive, Non-distended, No masses, No rebound, No guarding , Tenderness (Mild tenderness to the right quadrant) Neurological: Normal speech, Normal strength at 5/5 x4 extr, Normal tone, Normal affect - Studies Laboratory Data (last 24 hrs) 01/03/20 20:24: Creatinine 1.65 H 01/03/20 20:24: WBC 18.3 H, Hgb 17.1 H, Hct 52.7 H, Plt Count 236 01/03/20 20:24: Sodium 137, Potassium 3.7, BUN 51 H, Creatinine 1.71 H, Glucose 136 H, Total Bilirubin 1.1 H, AST 31, ALT 41, Alkaline Phosphatase 80, Lipase 206 Medications List Reviewed: Yes Assessment & Plan Discharge Plan: Home Plan to discharge in: 48 Hours Physician Review Additional Text: Impression: Nausea, vomiting with abdominal pain secondary to small-bowel obstruction with prior history of multiple abdominal surgeries Acute renal injury likely dehydration Hypertension Hyperlipidemia Plan: Nausea, vomiting with abdominal pain secondary to small-bowel obstruction with prior history of multiple abdominal surgeries: CT scan reviewed. Patient will continue with NG tube in place. Continue monitor closely. Continue IV fluids. Patient on DVT prophylaxis-Lovenox. Will provide medication for pain. Will discuss further with surgery. Anticipate improvement over the next 48-72 hr. Encourage ambulation. Will provide incentive spirometer. Acute renal injury likely dehydration: Spoke with nephrology. Continue with IV fluid hydration and electrolyte supplementation. Hypertension: Will provide medication IV. Hyperlipidemia: Will hold medication at this time pre Time Spent Managing Pts Care (In Minutes): 55
[2020-01-04] MEDS ORDERED: ALBUTEROL 2.5 MG/3 ML NEB SOL NEB PRN (15:00)
[2020-01-05] MEDS: NA CHLORIDE 0.9% 1,000 ML with POTASSIUM CL 20 MEQ IV SCH ×2 (04:10)
[2020-01-05 05:50] LABS: Absolute Lymphocytes (CBC) 1.7 K/uL (0.7-4.9); Basophils % 0.5 % (0-1.3); Hematocrit 43.6 % (36.0-45.0); Lymphocytes % 18.1 % (15.3-44.8); MPV 9.5 fL (7.6-11.3); RBC Red Blood Cell Count 4.77 M/uL (3.86-4.86)
[2020-01-05 07:25] LABS: Albumin 2.9 g/dL (3.4-5.0); Bilirubin Total 0.8 mg/dL (0.2-1.0); Phosphorus 1.8 mg/dL (2.5-4.9); Protein, Total 6.3 g/dL (6.4-8.2)
[2020-01-05 07:26] LABS: Magnesium 2.5 mg/dL (1.8-2.4); Potassium 3.7 mmol/L (3.5-5.1)
[2020-01-05] MEDS: ENOXAPARIN 30 MG/0.3 ML SQ SCH (08:14)
[2020-01-05] MEDS: FAMOTIDINE 20 MG/2 ML VIAL IV SCH ×2 (08:15→21:00)
--- NOTE | 2020-01-05 08:55 | P.PN ---
Subjective Date of Service: 01/05/20 Primary Care Provider: Dr. Hughes Chief Complaint: Nausea, vomiting abdominal pain Subjective: Other (Patient reported passage of gas. Still no stool. Abdominal pain improved. No significant nausea vomiting. NG tube in place.) Physical Examination - Vital Signs Temperature: 97.4 F Blood Pressure: 122/58 Pulse: 58 Respirations: 18 Pulse Ox (%): 93 - Physical Exam General: Alert, In no apparent distress, Oriented x3, Cooperative HEENT: Atraumatic Neck: Supple Respiratory: Clear to auscultation bilaterally, Normal air movement Cardiovascular: Normal pulses, Regular rate/rhythm Gastrointestinal: Normal bowel sounds, Soft and benign, Non-distended, No tenderness (No more tenderness noted.), No masses, No rebound, No guarding Neurological: Normal speech, Normal strength at 5/5 x4 extr, Normal tone, Normal affect - Studies Medications List Reviewed: Yes Assessment & Plan Discharge Plan: Home Plan to discharge in: 24 Hours Physician Review Additional Text: Impression: Nausea, vomiting with abdominal pain secondary to small-bowel obstruction with prior history of multiple abdominal surgeries Acute renal injury likely dehydration Hypertension Hyperlipidemia Chronic constipation Plan: Nausea, vomiting with abdominal pain secondary to small-bowel obstruction with prior history of multiple abdominal surgeries: Patient has done well. NGT regrets in place. Will change IV fluids. Patient has passed gas still no stool. Patient reports a history of constipation. Will order KUB to evaluate further. Will discuss with surgery. Hopefully no need for surgical intervention. Anticipate improvement over the next 24-48 hr. Acute renal injury likely dehydration: Spoke with nephrology. Will adjust IV fluids. Hypertension: Continue to provide medication as needed. Hyperlipidemia: Will hold medication at this time Chronic constipation: Patient uses stool softener and Linzess at home due to prior multiple abdominal surgeries. Will continue regimen once small-bowel obstruction has resolved. Time Spent Managing Pts Care (In Minutes): 55
[2020-01-05] MEDS ORDERED: NACHLORIDE 0.45% 1,000 ML IV SCH (09:00)
--- NOTE | 2020-01-05 09:17 | RAD REPORT ---
EXAM DESCRIPTION: RAD - Abdomen 1 View (KUB) - 01/05/2020 9:03 am CLINICAL HISTORY: fu sbo Pain COMPARISON: Abdomen Pelvis Wo Contrast dated 01/03/2020 FINDINGS: Several dilated small bowel loops are present in the central abdomen compatible with mecha nical small-bowel obstruction. Mild improvement is suspected since the recent comparative CT study. N o subdiaphragmatic free air. NG tube is in place with tip in the stomach.
[2020-01-05 10:08] LABS: Urine Protein/Creatinine Ratio 0.2 ratio (<0.15)
--- NOTE | 2020-01-05 11:22 | P.PN ---
Subjective Date of Service: 01/05/20 Primary Care Provider: Dr. Hughes Chief Complaint: Nausea, vomiting abdominal pain subjective 74-year-old female with significant past medical history of rectal cancer, status post surgery, radiation and chemotherapy back in 2007 admitted with bowel obstruction CR 1.7 today Cr normalized will change NS to 1/2 NS rep;irae phos Surgery F/U Past Medical History: 1. Hypertension. 2. Rectal CA status post resection, status post chemo and radiation, diagnosis was 2007, last chemo 2008. Past Surgical History: 1. Hysterectomy. 2. Ileostomy. 3. Bone marrow removal. Allergy: Erythromycin. Physical exam general: AAOX3, NAD , obese Neck; Supple, No elevated JVD hear: RRR, normal S1,2 no murmur or rub Chest: CTAB, no rales or wheezes Abdomen: Soft , Nt Extremities No edema or ulcer Assessment And Plan: ROXNAA resolved due to prerenal azotemia will switch to 1/2 NS hypophosphatemia will replaced Bowel obstruction as per Surgery Physical Examination - Vital Signs Temperature: 97.4 F Blood Pressure: 122/58 Pulse: 58 Respirations: 18 Pulse Ox (%): 93 - Studies Medications List Reviewed: Yes
[2020-01-05] MEDS: NACHLORIDE 0.45% 1,000 ML IV SCH (12:15)
--- NOTE | 2020-01-05 19:47 | CON ---
Date of Consultation: 01/05/2020 Diagnosis: Small-bowel obstruction. History Of Present Illness: This is the case of a 74-year-old patient, admitted for small bowel obst ruction. She has an NG tube, putting a small amount of content and basically, she is passing gas tod ay. She feels better. Abdomen is less distended. Review of Systems: 10 points otherwise unremarkable. Physical Examination: Abdomen: Soft and depressible. No guarding or rebound. Bowel sounds positive. Respiratory: Bilateral breath sounds. Extremities: Good capillary refill. Imaging Studies: X-ray today shows improvement of her condition. Plan: She wants some liquid, so we are going to give her some liquid. If she does not vomit, we are going to remove the NG tube in the next few hours. Then tomorrow, we are going to repeat the abdomi nal x-ray and if she once again shows the same symptoms and clinically she improves too, we are going to advance the diet. ANIL/KAELA Voice ID: [id number] Report ID: [id number]
[2020-01-06 06:28] LABS: Absolute Lymphocytes (CBC) 1.7 K/uL (0.7-4.9); Basophils % 0.3 % (0-1.3); Hematocrit 41.6 % (36.0-45.0); Lymphocytes % 19.1 % (15.3-44.8); MPV 9.4 fL (7.6-11.3); RBC Red Blood Cell Count 4.51 M/uL (3.86-4.86)
[2020-01-06 06:39] LABS: Albumin 2.9 g/dL (3.4-5.0); Magnesium 2.4 mg/dL (1.8-2.4); Protein, Total 6.1 g/dL (6.4-8.2)
[2020-01-06] MEDS: NACHLORIDE 0.45% 1,000 ML IV SCH ×2 (07:23→21:20)
[2020-01-06] MEDS: ENOXAPARIN 30 MG/0.3 ML SQ SCH (09:20)
[2020-01-06] MEDS: FAMOTIDINE 20 MG/2 ML VIAL IV SCH ×2 (09:20→20:04)
--- NOTE | 2020-01-06 10:02 | P.PN ---
Subjective Date of Service: 01/06/20 Primary Care Provider: Dr. Hughes Chief Complaint: Nausea, vomiting abdominal pain Subjective: Improving, Other (No significant nausea, vomiting. NG tube was removed yesterday. Patient reports passes job gas. No bowel movement yet. She feels a lot better) Physical Examination - Vital Signs Temperature: 97.9 F Blood Pressure: 108/54 Pulse: 52 Respirations: 19 Pulse Ox (%): 97 - Physical Exam General: Alert, In no apparent distress, Oriented x3, Cooperative HEENT: Atraumatic Respiratory: Clear to auscultation bilaterally, Normal air movement Cardiovascular: Normal pulses, Regular rate/rhythm Gastrointestinal: Normal bowel sounds, Soft and benign, Non-distended, No tenderness, No masses, No rebound, No guarding Musculoskeletal: No erythema, No tenderness, No warmth Integumentary: No erythema, No warmth, No cyanosis Neurological: Normal affect - Studies Medications List Reviewed: Yes Assessment & Plan Discharge Plan: Home Plan to discharge in: 24 Hours Physician Review Additional Text: Impression: Nausea, vomiting with abdominal pain secondary to small-bowel obstruction with prior history of multiple abdominal surgeries Acute renal injury likely dehydration Hypertension Hyperlipidemia Chronic constipation Plan: Nausea, vomiting with abdominal pain secondary to small-bowel obstruction with prior history of multiple abdominal surgeries: KUB showed improvement yesterday. Patient no longer has NG tube. Anticipate starting of clear liquid diet today. KUB planned for this morning as per surgery. Await further recommendation. Encourage ambulation. Encourage incentive spirometer. Anticipate home properly in the next 24 hr with clinical improvement. Acute renal injury likely dehydration: This has improved. Spoke with nephrology. Will continue with IV fluids until good oral intake. Hypertension: Continue to provide medication as needed. Hyperlipidemia: Will hold medication at this time Chronic constipation: Patient uses stool softener and Linzess at home due to prior multiple abdominal surgeries. Will continue regimen once small-bowel obstruction has resolved. Time Spent Managing Pts Care (In Minutes): 55
--- NOTE | 2020-01-06 10:07 | RAD REPORT ---
EXAM DESCRIPTION: RAD - Abdomen 1 View (KUB) - 01/06/2020 8:04 am CLINICAL HISTORY: Abdominal pain COMPARISON: January 04 FINDINGS: Several loops of moderately dilated small bowel have mildly increased in caliber since prior exam. r within the colon diminished IMPRESSION: Mild worsening in a small bowel obstruction
[2020-01-06] MEDS ORDERED: POTASSIUM 25 MEQ EFFERV TAB PO ONE (13:13)
[2020-01-06] MEDS: KCL 20 MEQ/100 mL IVPB 20 MEQ/100 ML BAG IV SCH ×2 (21:34→23:00)
--- NOTE | 2020-01-06 22:59 | PN ---
Date of Progress Note: 01/06/2020 Diagnosis: Small bowel obstruction. Subjective: Patient is doing well. No complaint. Passing flatus. No abdominal pain. No distentio n. Ambulating. She is having bowel movement and passing gas. She feels as per patient as she has n ormal again. NG tube is out. Physical Examination: Chest: Clear. Abdomen: Soft and depressible. No guarding, rebound, no perineal signs. No distention. Extremities: Good capillary refill. Patient is passing gas. Patient feels better. She wants to try some diet. So, we going to start wi th clear liquid diet, slowly advance because we have to make sure she is okay. If she failed this, s he will need a small bowel series. She wants to try diet first. She feels excellent. We encouraged ambulation. ANIL/KAELA Voice ID: [id number] Report ID: [id number]
--- NOTE | 2020-01-06 23:51 | PN ---
Date of Progress Note: 01/06/2020 Chief Complaint: Prerenal azotemia, acute on chronic kidney injury. History Of Present Illness: Patient is a 74-year-old female admitted for nausea , vomiting. She has a history of rectal cancer, status post surgery, radiation , and chemotherapy. She was admitted with bowel obstruction. Creatinine level was 1.7. Creatinine level normalized and improved with high IV fluids. Patient did not require dialysis. Patient was found to have hypophosphatemia, received replacement. Review of Systems: Denies fever, chills. Physical Examination: Lungs: Few crackles at bases. Heart: S1, S2. Abdomen: Soft, benign. Extremities: No edema. Laboratory Data: Blood work: Hemoglobin 13.6, WBC 9.1, platelet count 206, 000. Sodium 143, potassium 3.0, chloride 107, CO2 of 30, BUN 26, creatinine 0.91, glucose 73, phosphorus 2.0, calcium 9.2. Impression And Plan: 1. Hypernatremia, improving. Sodium level improved from 146 to 143. 2. Hypokalemia. Replacement was ordered and potassium level improved to 3.0 to 3.4. 3. Acute kidney injury. Gradually improving creatinine. There is high BUN and creatinine ratio secondary to prerenal azotemia. Monitor electrolytes and IV fluids will be adjusted according to fluid balance. 4. Abdominal pain. Per primary team. 5. Hypertension. Blood pressure is controlled. 6. Rectal cancer. Per primary team and surgical team. 7. Prerenal azotemia, resolved. In response to IV fluids, renal function improved. Monitor renal function and avoid nephrotoxic medication. 8. Hypophosphatemia. Replacement was ordered. Monitor phosphorus level. I spent total 36 min including 25 min to coordinate care plan. ADALID/MODL Voice ID: [id number] Report ID: [id number] [employer]
[2020-01-07] MEDS: ONDANSETRON 4 MG/2 ML VIAL IV PRN ×2 (01:34→08:43)
[2020-01-07] MEDS: NACHLORIDE 0.45% 1,000 ML IV SCH ×2 (04:10→20:20)
[2020-01-07] MEDS: PROMETHAZINE INJ 25 MG/ML AMP IV PRN ×3 (04:10→20:22)
[2020-01-07] MEDS: FAMOTIDINE 20 MG/2 ML VIAL IV SCH ×2 (08:43→20:20)
[2020-01-07] MEDS: ENOXAPARIN 30 MG/0.3 ML SQ SCH (08:43)
--- NOTE | 2020-01-07 10:57 | P.PN ---
Subjective Date of Service: 01/07/20 Primary Care Provider: Dr. Hughes Chief Complaint: Nausea, vomiting abdominal pain Subjective: Other (Patient did not tolerate full liquid diet. Patient was placed on NPO. Still with nausea and abdominal pain this morning.) Physical Examination - Vital Signs Temperature: 98 F Blood Pressure: 151/78 Pulse: 58 Respirations: 20 Pulse Ox (%): 92 - Physical Exam General: Alert, Cooperative, Mild distress HEENT: Atraumatic Neck: Supple Respiratory: Clear to auscultation bilaterally, Normal air movement Cardiovascular: Normal pulses, Regular rate/rhythm Gastrointestinal: Hypoactive, Non-distended, No masses, No rebound, No guarding , Tenderness (Tenderness to the abdomen) Musculoskeletal: No erythema, No tenderness, No warmth Integumentary: No warmth, No cyanosis Neurological: Normal speech, Normal strength at 5/5 x4 extr, Normal tone, Normal affect - Studies Medications List Reviewed: Yes Assessment & Plan Discharge Plan: Home Plan to discharge in: Greater than 2 days Physician Review Additional Text: Impression: Nausea, vomiting with abdominal pain secondary to small-bowel obstruction with prior history of multiple abdominal surgeries Acute renal injury likely dehydration Hypertension Hyperlipidemia Chronic constipation Plan: Nausea, vomiting with abdominal pain secondary to small-bowel obstruction with prior history of multiple abdominal surgeries: Patient now NPO again. She did not tolerate her full liquid diet yesterday. Still with nausea and abdominal pain. Case discussed with surgery. Will keep the patient NPO. If with increased nausea and vomiting NG tube will need to be placed again. Small- bowel series to be done tomorrow. Patient will likely require surgical intervention if no improvement. I will turn the service over to the hospitalist team tomorrow. I will go over the plan of care with him. Acute renal injury likely dehydration: This has improved. Spoke with nephrology. Continue IV fluids. Hypertension: Continue to provide medication as needed. Hyperlipidemia: Will hold medication at this time Chronic constipation: Hold medication at this time. Time Spent Managing Pts Care (In Minutes): 55
--- NOTE | 2020-01-07 20:31 | PN ---
Diagnosis: Small bowel obstruction. History Of Present Illness: This is a case of a 74-year-old patient with extensive surgical history including bowel resection and reversal of ileostomy several years ago, now coming with small bowel ob struction. Yesterday, she was feeling great in the morning, passing gas, having bowel movement. She wanted to try the diet, when she tried the diet at night she started vomiting again. She is right n ow n.p.o. She feels okay, but she is afraid obviously of diet again. Physical Examination: Chest: Clear. Abdomen: Soft and depressible. No guarding or rebound. Extremities: Good capillary refill. Plan: This patient will have a small bowel series. I spent about an hour talking to her and to her about multiple options from surgery today to surgery after a small bowel series to even a per iod of evaluation and observation. All the options were discussed with benefits, alternatives, and r isks of laparotomy, possible resection possible ostomy. This discussed with the patient which includ e but are not limited to infection, bleeding, damage to adjacent structures, anesthesia complication, recurrence, MA, and even . I am not sure exactly how many times or how many hours may take for us to go into the abdomen and relieve the obstruction may be a quick, may be a long time with the po ssibility of her ending up on the ventilator and she understands that. We have a national emergency also and she is afraid to also be on the ventilator and be in the ICU and I cannot promise that is no t going to happen in her case. She is going to wait until she have a small bowel series and then jigar e a decision, and consent once all the facts were discussed with her once again tomorrow. ANIL/KAELA Voice ID: [id number] Report ID: [id number]
[2020-01-07 20:43] LABS: Basophils % 0.2 % (0-1.3); Hematocrit 47.7 % (36.0-45.0); Lymphocytes % 16.7 % (15.3-44.8); MPV 9.2 fL (7.6-11.3); RBC Red Blood Cell Count 5.24 M/uL (3.86-4.86)
[2020-01-07 20:58] LABS: Albumin 3.4 g/dL (3.4-5.0); Bilirubin Total 1.5 mg/dL (0.2-1.0); Magnesium 2.5 mg/dL (1.8-2.4); Phosphorus 2.6 mg/dL (2.5-4.9); Potassium 3.6 mmol/L (3.5-5.1)
--- NOTE | 2020-01-07 22:37 | PN ---
Date of Progress Note: 01/07/2020 Chief Complaint: Prerenal azotemia, acute on chronic kidney injury. History Of Present Illness: Patient is a 74-year-old female with history of multiple medical problems including history of rectal cancer, status post surgery, radiation, chemotherapy. She was admitted with bowel obstruction. Creatinine level was up to 1.7 and IV fluids were started to control prerenal azotemia. Patient did not require dialysis. Patient was found to have hypophosphatemia and received replacement. Review of Systems: Denies chest pain or palpitation. Physical Examination: Lungs: Clear to auscultation bilaterally. Heart: S1, S2. Abdomen: Soft, benign. Extremities: No edema. Laboratory Data: Hemoglobin 15.6, WBC 12.1, platelet count 239,000. Chemistries show sodium 141, potassium 3.6, chloride 104, CO2 of 31, BUN 28, creatinine 0.92, glucose 93, magnesium 2.5, and phosphorus 2.6. Impression And Plan: 1. Acute on chronic kidney injury. Creatinine level improved from 1.65 to 1.46 and subsequently to 0.92. Gradually improving and normalizing creatinine level. Patient has hypertensive heart and kidney disease. Monitor blood pressure and continue low-sodium diet. 2. Hypernatremia, is improving. Sodium level was 146, improving to 141. P.o. intake was increased. Patient tolerated p.o. intake. 3. Hypophosphatemia. Monitor phosphorus level and adjust treatment accordingly. 4. Hypertension. Adjust blood pressure medication as needed. I spent total 36 min including 25 min to coordinate care plan. ADALID/KAELA Voice ID: [id number] Report ID: [id number] [facility]
[2020-01-08] MEDS: PROMETHAZINE INJ 25 MG/ML AMP IV PRN ×3 (02:30→21:27)
[2020-01-08 05:11] LABS: Albumin 3.4 g/dL (3.4-5.0); Phosphorus 2.8 mg/dL (2.5-4.9); Potassium 3.4 mmol/L (3.5-5.1)
[2020-01-08] MEDS: KCL 20 MEQ/100 mL IVPB 20 MEQ/100 ML BAG IV SCH ×2 (05:42→08:08)
[2020-01-08] MEDS: NACHLORIDE 0.45% 1,000 ML IV SCH ×2 (05:43→22:43)
[2020-01-08] MEDS: ONDANSETRON 4 MG/2 ML VIAL IV PRN ×3 (06:55→18:24)
[2020-01-08] MEDS: MORPHINE 2 MG/ML SYR IV PRN ×3 (08:00→18:18)
[2020-01-08] MEDS: FAMOTIDINE 20 MG/2 ML VIAL IV SCH ×2 (08:01→20:06)
[2020-01-08] MEDS: ENOXAPARIN 30 MG/0.3 ML SQ SCH (08:01)
--- NOTE | 2020-01-08 17:21 | P.PN ---
Subjective Date of Service: 01/08/20 Primary Care Provider: Dr. Hughes Chief Complaint: Nausea, vomiting abdominal pain Patient complaining of abdominal pain. No bowel movement yet, no flatus. Small -bowel series is in process. Physical Examination - Vital Signs Temperature: 98 F Blood Pressure: 124/58 Pulse: 66 Respirations: 18 Pulse Ox (%): 93 - Physical Exam General: Alert, In no apparent distress, Oriented x3 HEENT: Mucous membr. moist/pink, Sclerae nonicteric Neck: Supple, JVD not distended Respiratory: Clear to auscultation bilaterally, Normal air movement Cardiovascular: No edema, Regular rate/rhythm, Normal S1 S2 Gastrointestinal: Hypoactive, Other (Obese abdomen), Tenderness (Moderate tenderness on deep palpation) Musculoskeletal: No swelling, No erythema Integumentary: No rashes Neurological: Normal speech, Other (Nonfocal.) - Studies Medications List Reviewed: Yes Assessment And Plan - Current Problems (Diagnosis) (1) Small bowel obstruction Current Visit: Yes Status: Acute (2) History of rectal cancer Current Visit: Yes Status: Acute (3) Acute renal failure Current Visit: Yes Status: Acute - Plan General surgery input appreciated. Small-bowel obstruction has not responded to medical management. Small-bowel series recommended by surgery and is in process. Keep NPO Supportive measures with IV hydration, IV opioids for pain. Serial abdominal examination. General surgery to follow. Acute renal failure has resolved. Optimize electrolytes. Physician Review Additional Text: Impression: Nausea, vomiting with abdominal pain secondary to small-bowel obstruction with prior history of multiple abdominal surgeries Acute renal injury likely dehydration Hypertension Hyperlipidemia Chronic constipation Plan: Nausea, vomiting with abdominal pain secondary to small-bowel obstruction with prior history of multiple abdominal surgeries: Patient now NPO again. She did not tolerate her full liquid diet yesterday. Still with nausea and abdominal pain. Case discussed with surgery. Will keep the patient NPO. If with increased nausea and vomiting NG tube will need to be placed again. Small- bowel series to be done tomorrow. Patient will likely require surgical intervention if no improvement. I will turn the service over to the hospitalist team tomorrow. I will go over the plan of care with him. Acute renal injury likely dehydration: This has improved. Spoke with nephrology. Continue IV fluids. Hypertension: Continue to provide medication as needed. Hyperlipidemia: Will hold medication at this time Chronic constipation: Hold medication at this time.
--- NOTE | 2020-01-08 19:37 | RAD REPORT ---
EXAM DESCRIPTION: RAD - Small Bowel Series - 01/08/2020 6:47 pm CLINICAL HISTORY: Bowel Obstruction COMPARISON: Abdomen Pelvis Wo Contrast dated 01/03/2020; Abdomen 1 View (KUB) dated 01/06/2020; Abdo men 1 View (KUB) dated 01/05/2020 FINDINGS: Distended air and fluid-filled stomach is present. Multiple dilated small bowel loops are again noted. No improvement from the January 05 KUB imaging. No free air or pneumatosis. No suspicious calcifications. Fluid distended stomach shows no large mass or grossly abnormal mucosal pattern. No delay of contrast transit into the proximal small bowel. Multiple dilated small bowel loops are present. Dilated loops extend into the right lower abdomen. Bowel wall edema is not evident. Imaging was extended to 9 hour s following contrast administration. No antegrade movement occurred between the 4 hour and 9 hour teresa ge. No extravasation of contrast. No free air or pneumatosis evident. The exact transition point is d ifficult to visualize on this examination. IMPRESSION: Mechanical small bowel obstruction pattern with dilated bowel loops extending into the r ight lower abdomen. No identifiable antegrade movement between the 4 hour and 9 hour films.
--- NOTE | 2020-01-08 19:47 | PN ---
Date of Progress Note: 01/08/2020 Diagnosis: Small bowel obstruction. Subjective: Today, she has been n.p.o. No major abdominal pain, although is still distended. She t hinks she passed some gas. No shortness of breath. No chest pain. Review of Systems: Ten points otherwise unremarkable. Physical Examination: Abdomen: No guarding, no rebound. Extremities: Good capillary refill. Laboratory Data: Blood work shows the yesterday WBC count of 12.1 with hemoglobin of 15.6, potassium 3.4. Small bowel series results still pending. Assessment: This is a 74-year-old patient with small bowel obstruction. She is waiting for [facility] results to make the decision if she is going to allow us to do exploratory laparotomy, possible resection, possible ostomy. I explained to her many times which include benefits, alternat karen and risks including, but not limited to infection, bleeding, damage to adjacent structures, anes thesia complication, recurrence, myocardial infarction, and even . She also understands this ma y not relieve any symptoms. She might need more than one surgical intervention. Once we have the all bowel series result which is still in progress, then she is going to make any informed consent. She is going to give us an informed consent. ANIL/KAELA Voice ID: [id number] Report ID: [id number]
[2020-01-08] MEDS: MORPHINE 4 MG/ML SYR IV PRN (21:27)
--- NOTE | 2020-01-08 23:44 | PN ---
Date of Progress Note: 01/08/2020 Chief Complaint: Prerenal azotemia, acute on chronic kidney injury. History Of Present Illness: The patient is a 74-year-old female with history of multiple medical problems including history of rectal cancer, status post surgery, radiation therapy, chemotherapy. She was admitted with bowel obstruction. Creatinine level was up to 1.7. She was started on IV fluids to prevent prerenal azotemia and control renal hypoperfusion. Patient was found to have hypophosphatemia and received replacement. Review of Systems: Denies complaints. Physical Examination: Lungs: Clear to auscultation bilaterally. Heart: S1, S2. Abdomen: Soft, benign. Extremities: Slight edema. Impression And Plan: 1. Acute on chronic kidney injury. Serum creatinine is improving and from 1.6 to 1.4. Subsequently, it improved to 0.9. Renal function is stabilizing at baseline. 2. Hypernatremia, improving. Continue p.o. intake with fluids to control hypernatremia. 3. Hypophosphatemia. Monitor phosphorus level and adjust replacement. 4. Hypertension. Blood pressure in acceptable control. Continue current treatment. I spent total 36 min including 25 min to coordinate care plan. ADALID/KAELA Voice ID: [id number] Report ID: [id number] [facility]
[2020-01-09] MEDS: MORPHINE 4 MG/ML SYR IV PRN ×2 (02:29→06:00)
[2020-01-09] MEDS: ONDANSETRON 4 MG/2 ML VIAL IV PRN ×3 (02:30→12:58)
[2020-01-09 05:13] LABS: Albumin 3.2 g/dL (3.4-5.0); Magnesium 2.3 mg/dL (1.8-2.4); Phosphorus 3.9 mg/dL (2.5-4.9); Potassium 4.4 mmol/L (3.5-5.1)
[2020-01-09] MEDS: PROMETHAZINE INJ 25 MG/ML AMP IV PRN (06:01)
--- NOTE | 2020-01-09 06:55 | RAD REPORT ---
EXAM DESCRIPTION: RAD - Chest Single View - 01/09/2020 5:49 am CLINICAL HISTORY: SBO, abdominal pain COMPARISON: Chest exam October 2019 TECHNIQUE: AP portable chest image was obtained 01/09/2020 5:49 am . FINDINGS: Lung volumes are low. No significant failure or volume overload. Posterior lung base asses sment is limited. However, no suspicion for a significant lung parenchymal process seen. Heart and va sculature are normal. No measurable pleural effusion and no pneumothorax. No acute bony abnormality s een. No acute aortic findings suspected. IMPRESSION: No acute cardiopulmonary process.
--- NOTE | 2020-01-09 06:58 | RAD REPORT ---
EXAM DESCRIPTION: RAD - Abdomen 1 View (KUB) - 01/09/2020 6:46 am CLINICAL HISTORY: F/U SBS COMPARISON: Small Bowel Series dated 01/08/2020 FINDINGS: This KUB examination is compared with the prior day small bowel follow-through examination . In the 12 hour interval since the last small-bowel image, a substantial amount of contrast remains in the contrast and fluid filled stomach. No further antegrade movement of the contrast column is ident ifiable. No extravasation of contrast seen. No free air or pneumatosis. IMPRESSION: Mechanical small bowel obstruction pattern with multiple dilated loops down to the right lower abdomen. In the 12 hour interval since the last small bowel follow-through image, there has been no further an tegrade movement of the contrast column.
[2020-01-09] MEDS: FAMOTIDINE 20 MG/2 ML VIAL IV SCH ×2 (08:14→21:00)
[2020-01-09] MEDS: ENOXAPARIN 30 MG/0.3 ML SQ SCH (08:38)
[2020-01-09] MEDS ORDERED: Ringers Lactate 1,000 ML IV ONE (09:32)
[2020-01-09] MEDS ORDERED: LIDOCAINE 2% MPF 5 ML VIAL ONE (09:37)
[2020-01-09] MEDS ORDERED: ROCURONIUM 50 MG/5 ML VIAL IV ONE (09:37)
[2020-01-09] MEDS ORDERED: MIDAZOLAM HCL 2 MG/2 ML INJ ONE (09:37)
[2020-01-09] MEDS ORDERED: FENTANYL CITR 250 MCG/5 ML ONE (09:37)
[2020-01-09] MEDS ORDERED: propofoL 200 MG/20 ML VIAL IV ONE (09:37)
[2020-01-09] MEDS ORDERED: dexAMETHasone 10 MG/ML VIAL ONE (09:37)
[2020-01-09] MEDS ORDERED: Phenylephrine HCl 10 MG/ML 1 ML VIAL ONE ×2 (10:13→10:37)
[2020-01-09] MEDS ORDERED: EPHEDRINE SULF 50 MG/ML VIAL ONE ×3 (10:29→10:43)
[2020-01-09] MEDS ORDERED: Pharmacy Consult 1 EA XX PRN (11:30)
[2020-01-09] MEDS ORDERED: NA CHLORIDE 0.9% 500 ML IV ONE (11:33)
--- NOTE | 2020-01-09 11:35 | P.CNS ---
Date of Consult: 01/09/20 Reason for Consult: Peritonitis on patient on ventilator Primary Care Provider: Dr. Hughes Chief Complaint: Nausea, vomiting abdominal pain History of Present Illness: Patient is 74 years of age admitted with small-bowel obstruction developed severe abdominal tenderness possible perforation was taken to the operating room and had some cardiac arrhythmias with asystole operation was cancel patient is currently in the ICU she is alert responsive cooperative what pressures a little low abdomen is very tender saturation satisfactory Allergies erythromycin base Allergy (Verified 01/04/20 02:06) Nausea/Vomiting nortriptyline [From Pamelor] Allergy (Verified 01/04/20 02:06) Anaphylaxis sulfamethoxazole [From Bactrim] Allergy (Verified 01/04/20 02:06) Headache trimethoprim [From Bactrim] Allergy (Verified 01/04/20 02:06) Headache Home Medications: Acetaminophen [Tylenol 8 Hour] 1,300 mg PO BEDTIME 11/17/19 Albuterol Neb [Proventil 0.083% Neb Soln] 1 spray IH DAILY PRN 11/17/19 Diphenhydramine [Benadryl*] 25 g PO BEDTIME 11/17/19 Docosahexanoic AC/Epa [Fish Oil 1,000 MG*] 1 cap PO DAILY 11/17/19 Glucosamine HCl 1,500 mg PO BID 11/17/19 Iron 28 mg PO DAILY 11/17/19 L.acidoph,Paracasei, B.lactis [Probiotic] 1 cap PO DAILY 11/17/19 Linaclotide [Linzess] 290 mg PO DAILY 11/17/19 Multivitamin [Multivitamins] 1 cap PO DAILY 11/17/19 Nadolol [Corgard] 80 mg PO BEDTIME 11/17/19 Omeprazole 20 mg PO BEDTIME 11/17/19 Potassium Gluconate [Potassium] 99 mg PO DAILY 11/17/19 Pravastatin Sodium 40 mg PO BEDTIME 11/17/19 Pregabalin [Lyrica*] 75 mg PO BID 11/17/19 Senosides [Senokot*] 8.6 mg PO BEDTIME 11/17/19 Tramadol HCl [Ultram] 100 mg PO BEDTIME 11/17/19 Triamterene/Hydrochlorothiazid [Triamterene-Hctz 75-50 mg Tab] 1 tab PO DAILY Codeine/APAP [Tylenol W/Codeine #3 tab] 1 tab PO Q4HP PRN #30 tab 11/20/19 - Past Medical/Surgical History Diabetic: No -: HTN -: rectal ca -: lyphoma -: rerctal surg -: arm surg -: shoulder surg - Family History Father Medical History: Hypertension, Lung disease - Social History Alcohol use: No CD- Drugs: No Caffeine use: No Place of Residence: Home Review of Systems is unable to be obtained Physical Examination Temp Pulse Resp BP Pulse Ox 97 F 83 16 104/69 97 01/09/20 08:00 01/09/20 08:00 01/09/20 08:00 01/09/20 08:00 01/09/20 08:00 General: Alert, Cooperative, Moderate distress Respiratory: Clear to auscultation bilaterally, Diminished Cardiovascular: No edema, Regular rate/rhythm Gastrointestinal: Rebound (Knocked rebound) Musculoskeletal: No clubbing, No swelling - Problems (1) Peritonitis Current Visit: Yes Status: Acute Plan: Patient is 74 years of age admitted with small-bowel obstruction occur some rebound tenderness possible peritonitis renal function is a little worse patient developed perioperative arrhythmia and was transferred here to the ICU on a ventilator chest x-rays clear labs reviewed mildly elevated white count chemistries reviewed saturation satisfactory brought on the antibiotic coverage to meropenem and vancomycin Dccefoxitin continue with IV fluids titrate sat to 95% do ABGs continue to monitor await cardiac clearance 2D echo
[2020-01-09] MEDS: NA CHLORIDE 0.9% 1,000 ML IV SCH ×3 (11:43→20:55)
--- NOTE | 2020-01-09 11:51 | P.PN ---
Subjective Date of Service: 01/09/20 Primary Care Provider: Dr. Hughes Chief Complaint: Nausea, vomiting abdominal pain Patient had no bowel movement or flatus. Small-bowel receives reported no advancement of dye beyond the obstruction point. Persistent small bowel dilatation indicating complete bowel obstruction. Patient was seen by Dr. Ruelas and was taken to the OR for possible surgery. I am told patient developed asystole, chest compression was initiated, patient developed transient V-tach and became hypotensive. She was given a bolus of IV fluid, kept intubated and transferred to the ICU. Her blood pressure has currently responded to IV fluid boluses. She appeared to be in sinus rhythm on the monitor. Labs ordered. NG-tube to suction inserted. Noted increase in serum creatinine. Physical Examination - Vital Signs Temperature: 98 F Blood Pressure: 89/67 Pulse: 85 Respirations: 15 Pulse Ox (%): 97 - Physical Exam General: Unresponsive, Other (Intubating and on mechanical ventilation.) HEENT: Other (Intubated) Respiratory: Normal air movement, Other (Bilateral upper airway transmitted sounds) Cardiovascular: No edema, Regular rate/rhythm, Normal S1 S2 Gastrointestinal: Other (High-pitched bowel sounds), Distended Musculoskeletal: No swelling Integumentary: No rashes Neurological: Other (Unresponsive.) - Studies Medications List Reviewed: Yes Assessment And Plan - Current Problems (Diagnosis) (1) Small bowel obstruction Current Visit: Yes Status: Acute (2) History of rectal cancer Current Visit: Yes Status: Acute (3) Acute renal failure Current Visit: Yes Status: Acute (4) Cardiac arrest Current Visit: Yes Status: Acute - Plan Continue mechanical ventilation. IV fluid bolus per nephrology and cardiology Pulmonary consulted for vent management. Optimize electrolytes. Trend troponin. Echocardiogram requested. Nephrology following and assisting with management of acute renal failure. Per Dr. Ruelas, small-bowel obstruction will be managed conservatively for now given her high risk of surgery. NG-tube to suction. TPN for prolonged NPO status. Central line placed for TPN Serial abdominal examination. Prophylactic antibiotic coverage.
--- NOTE | 2020-01-09 11:51 | RAD REPORT ---
EXAM DESCRIPTION: RAD - Chest Single View - 01/09/2020 11:40 am CLINICAL HISTORY: ETT placement COMPARISON: January 08 TECHNIQUE: AP portable chest image was obtained 01/09/2020 11:40 am . FINDINGS: Endotracheal tube has been placed. Tip is mid aortic arch level 3 cm above the maged. NG tube has been placed in extends into the stomach. Tip is off the field of view. Heart, vasculature and lung markings are not clearly different from comparison. IMPRESSION: Endotracheal tube in good position. Tip is mid aortic arch level. NG tube extends into the stomach with tip off the field of view of this examination.
[2020-01-09] MEDS ORDERED: CEFOXITIN SODIUM 1 GM/VIAL IVPB SCH (12:00)
[2020-01-09] MEDS ORDERED: CEFOXITIN/SWI 1gm 1 GM/10 ML SYR IV SCH (12:00)
[2020-01-09 12:13] LABS: Absolute Lymphocytes (CBC) 1.5 K/uL (0.7-4.9); Basophils % 0.3 % (0-1.3); Hematocrit 50.4 % (36.0-45.0); Lymphocytes % 11.1 % (15.3-44.8); MPV 9.5 fL (7.6-11.3); RBC Red Blood Cell Count 5.46 M/uL (3.86-4.86)
[2020-01-09 12:36] LABS: CKMB Creatine Kinase MB < 1.0 ng/mL (0.3-3.6); Creatine Phosphokinase 14 U/L (26-192); Magnesium 2.1 mg/dL (1.8-2.4); Phosphorus 4.1 mg/dL (2.5-4.9); Troponin I 0.03 ng/mL (0.0-0.045)
[2020-01-09] MEDS: VANCOMYCIN 2 GM in NA CHLORIDE 0.9% 500 ML IVPB SCH (12:42)
[2020-01-09] MEDS: Meropenem 1,000 MG in NA CHLORIDE 0.9% 100 ML IV SCH ×2 (12:43→21:00)
--- NOTE | 2020-01-09 13:00 | RAD REPORT ---
EXAM DESCRIPTION: RAD - Abdomen 1 View (KUB) - 01/09/2020 12:40 pm CLINICAL HISTORY: Abdomen pain. FINDINGS: Contrast is present within dilated small bowel. No contrast is visualized within the colon . This indicates that the patient has either a complete or very high-grade mechanical small bowel obs truction
--- NOTE | 2020-01-09 13:39 | OP ---
Surgeon: Domingo Ruelas MD This is central line placement emergently in the ICU. Preoperative Diagnoses: Small bowel obstruction, respiratory failure, cardiac arrhythmias, morbid ob esity, history of colon cancer. Postoperative Diagnoses: Small bowel obstruction, respiratory failure, cardiac arrhythmias, morbid o besity, history of colon cancer. Procedure: Emergent central line placement, right femoral vein. Anesthesia: Local. Indications: This is the case of a 74-year-old patient with multiple medical problems. Right now, n eeds emergent laparotomy, but due to medical conditions, we cannot proceed at this moment. In the [facility], the primary doctors request emergent central line placement for management. The benefits, al ternatives, risks of central line placement fully explained to the patient's , which include b ut not limited to infection, bleeding, damage to adjacent structures, DVTs, PEs, MO, even . The y also understand this may not relieve any symptoms. They understood, he gave consent for the centra l line emergently. Description Of Procedure: Patient remained in ICU, positioned, and right femoral area was prepped an d draped in a sterile fashion. Local anesthesia was applied after time-out was called. 18-gauge nee dle was placed in the right femoral vein at the first attempt. Guidewire was passed through. Needle was removed and a central line triple lumen was placed using Seldinger technique. Excellent backflo w and inflow. The line was flushed with saline solution. No hematomas. Area was covered with sterile dressings. Patient tolerated the procedure well. ANIL/KAELA Voice ID: [id number] Report ID: [id number]
--- NOTE | 2020-01-09 13:39 | PN ---
Date of Progress Note: 01/09/2020 Diagnosis: Small-bowel obstruction. Subjective: This is the case of a -sviz-kbd patient with small-bowel obstruction. On and off been better and worse. A few days ago, she felt better. She started passing gas, bowel movement . For reasons that I understand very well, she is trying to avoid her surgery for bowel obstruction, so we have national emergency. She is afraid to go on the vent, she is afraid to go for surgery, so she wanted to give it a try. Once she started getting the clears once again, she noticed the sympto ms of distention once again. So, we asked her to be n.p.o. We get a small bowel series, shows a com plete obstruction, we believe it could be from the right lower quadrant. We explained to her yesterd ay the benefits, alternatives, and risks of laparotomy, possible resection, possible ostomy. This mo rning when she has the final result of the small-bowel series, she understood the obstruction. This morning also I noticed her to be more tender with peritonitis, so I explained to her that we recommen d the patient to have an emergent laparotomy. She discussed that with the . Now, she has all the fact and then, she decided to sign for the surgery and patient was immediately booked. Before t he surgery when the patient was induced anesthesia, she went in several episodes of ventricular tachy cardia, Anesthesia called us, we have to postpone surgery which is a difficult situation because the patient has peritonitis but no evidence of bowel perforation yet. They cannot proceed with the anest hesia, is unstable, so we have to bring the patient to the ICU once again, contact her primary in the hospital right now. I contacted the hand washer and automotive refinisher and discussed that with the erma ent's . Obviously, the once again said that he agreed with that. He does not want to go surgery in this condition. He understand that it is not an easy decision. If we does not reliev e the obstruction and she developed peritonitis, she may end up with ischemic bowel or even perforati on of the bowel and that on itself will be a life threatening condition. So, patient is being taking to the ICU for once again medical condition. We do not have any evidence of perforation yet. If sh e perforates, then the understand the pros and cons of it. He is trying to make a decision w hat is the best for his . From the medical standpoint at that moment, we once again explained to them the need for surgical intervention and it is going to be up to them to decide what is the next step since in that case it is life-threatening. we have to make the decision again, might happen tonight, might happen in an hour, might happen in a few days from now. In the meantime, comp navdeep n.p.o., NG tube. He gave his consent for a central line placement emergently. They need to g et management of her fluid. We might even have to use that for parenteral nutrition if the peritoniti s resolve on its own, but she still has a bowel obstruction. The benefits, alternatives, and risks o f central line placement fully explained to the patient's which include, but not limited to, infection, bleeding, damage to adjacent structures, anesthesia complication, DVTs, PE, TX, even . We are going to go emergent at this moment. We do not want to use the upper body since the guidewire may just once again we have at this moment. Please see procedure note. Me dical doctor is working with the patient, trying to stabilize the patient. I am on hold until they g ave me the clearance to proceed with surgery. ANIL/KAELA Voice ID: [id number] Report ID: [id number]
[2020-01-09] MEDS ORDERED: propofoL 1,000 MG/100 ML VIAL IV PRN (13:45)
[2020-01-09] MEDS ORDERED: HALOPERIDOL LACT 5 MG/ML INJ IV PRN (13:45)
[2020-01-09 13:56] LABS: Blood Morphology Comment NOT SEEN (NOT SEEN); Platelet Estimate ADEQ; Urine White Blood Cell Casts OK
[2020-01-09 14:04] LABS: BUN Blood Urea Nitrogen 39 mg/dL (7-18); Bicarbonate 29 mmol/L (21-32); Glucose Level 129 mg/dL (74-106); Sodium Level 140 mmol/L (136-145)
[2020-01-09] MEDS: FENTANYL CITR 100 MCG/2 ML IV PRN ×2 (14:05→23:03)
[2020-01-09] MEDS: LORazepam 2 MG/ML VIAL IV PRN (14:47)
[2020-01-09] MEDS: NA CHLORIDE 0.9% 250 ML IV PRN ×5 (15:00→17:30)
[2020-01-09] MEDS ORDERED: Meropenem 1000 MG/VIAL IV SCH (17:00)
[2020-01-09 18:15] LABS: Arterial Blood Carboxyhemoglob 0.8 % (0-1.5); Blood Gas Oxyhemoglobin 91.7 % (94-97); Blood O2 Saturation 93.6 % (92-98.5)
--- NOTE | 2020-01-09 20:44 | CON ---
Date of Consultation: 01/09/2020 The patient was admitted on 01/03/2020 with small bowel obstruction. I saw the patient on 01/09/2020 after a cardiac arrest and possible ventricular tachycardia. History Of Present Illness: Ms. Rivas is a 74-year-old woman. She was admitted to Dr. Gallegos on for a small-bowel obstruction. She has had a history of colorectal cancer, hypertension, and follicular lymphoma. She is status post ileostomy in the past and reversal. Came in with small-bow el obstruction and was being treated conservatively, but remained obstructed. She was taken today to the operating room and prior to surgery during anesthesia, apparently, patient had what appeared to be a cardiac arrest, ventricular tachycardia, brief asystole status post brief CPR. Patient was intu bated and brought back to the ICU. Unfortunately, no strips were available to me to review as far as her rhythm is concerned, but of interest, patient has no previous cardiac history. Past Medical History: As stated above. Allergies: SHE IS ALLERGIES TO ERYTHROMYCIN, BACTRIM, AND NORTRIPTYLINE. Medications: At home include Corgard, triamterene with hydrochlorothiazide, Senokot, inhaler, Prilos ec, pravastatin, and Lyrica. Review of Systems: Negative. Social History: Negative. Family History: Noncontributory. Physical Examination: General: When I saw her, she was intubated, adequate saturation. Vital signs: Stable. She was afebrile. She was in a sinus rhythm with a right bundle-branch block. HEENT: Negative. Neck: Supple with no bruit. Chest: Clear. Cardiac: Revealed a regular rhythm and rate. No murmurs, gallops, or rubs. Abdomen: Benign. Extremities: Revealed no clubbing, cyanosis, or edema. Diagnostic Data: Her chest x-ray was normal. Her creatinine was 1.7. Her magnesium, potassium, and calcium were within normal limits. EKG shows right bundle-branch block and left anterior hemiblock, sinus rhythm. Impression And Plan: 1.Cardiac arrest secondary to a combination of brief asystole and ventricular tachycardia. No docum entations available to me. At this point, I will try to research her records from the anesthesia ope rating room area to see if I can see what rhythm she was really in. She has been in sinus rhythm sin ce that event after being intubated without any evidence of ventricular tachycardia. An echocardiogr am which was done by bedside was normal with normal ejection fraction, normal wall motion, no effusio n, no valvular heart disease. Her electrolytes are all within normal limit. She remains a little bi t hypotensive with a creatinine of 1.7 probably secondary to dehydration. Her other problems include history of colorectal surgery, status post ileostomy and reversal and now with small-bowel obstructi on that has not been resolved yet. She still has a nasogastric tube. 2.Hypertension. 3.Gastroesophageal reflux disease. 4.Neuropathy. 5.Dyslipidemia. 6.Asthma. 7.History of follicular lymphoma. At this point, patient is intubated. She is not getting any of her medication. She is getting hydra leonid. She has an NG tube in place. I have not myself seen any arrhythmias. Her echocardiogram is no rmal. I would prefer at this point not to put her on any amiodarone or any other antiarrhythmic unti l I see any other ventricular arrhythmias in the ICU while she is intubated. Hopefully will extubate her soon. When she is extubated, I would prefer to put her back at least on some form of beta-block ers, continue monitoring, probably schedule a stress test sometimes as an outpatient. I will discuss the case further with Dr. Gallegos and Dr. Ruelas. DAYTON/KAELA Voice ID: [id number] Report ID: [id number]
[2020-01-09] MEDS ORDERED: NA CHLORIDE 0.9% 250 ML IV PRN (20:51)
--- NOTE | 2020-01-09 21:08 | PN ---
Date of Progress Note: 01/09/2020 Subjective: Patient was admitted with hypomagnesemia, hypokalemia with acute kidney injury. Patient found to have a small bowel obstruction. Today, patient was taken for surgery and before surgery do ne after induction of anesthesia, patient had cardiac arrest. Cardiac resuscitation was done. Patijohnathan nt did not require any shock. Resuscitation continued for almost 10 to 20 second to recover. Patien t received induction for resuscitation including Versed. Patient received fluid resuscitation with L R. Blood pressure stabilized. Patient still awake. Physical Examination: Vital Signs: Blood pressure 97/68, pulse of 81. Chest: Clear to auscultation. Heart: S1, S2. Regular. Abdomen: Distended. Extremities: Trace edema. Laboratory Data: WBC 13.8, H and H 16.2/50.4, platelets 250. Sodium 140, potassium 4.4, bicarb 27, BUN 33, creatinine 1.7, calcium 9.9, phosphorus 3.9, magnesium 2.3, albumin 3.2. Assessment And Plan: 1.Acute kidney injury secondary to toxic acute tubular necrosis, poor perfusion acute tubular necros is secondary to low blood pressure. Doubt to be any contrast in use as the CT of abdomen and pelvis was done on the of this month and it was done without any contrast. Possible could be secondary to compartment secondary to small bowel obstruction, distention. Superimposed with significant prer enal supported with significant hemoconcentration of the blood. Patient's hemoglobin back in October 31.5. I agree with a bolus of fluid. We will bolus again with another 500 and we will maintain the patient. I am going to follow up urine output. 2.Cardiogenic shock/hypovolemic shock secondary to third spacing secondary to small bowel obstructio n. We will send for serial cardiac enzyme, EKG. We will follow up with Cardiology. Continue fluid resuscitation. We will monitor the patient. 3.Small bowel obstruction as by Surgery. 4.Respiratory failure. Continue current supportive vent. We will follow up with Pulmonary. MA/MODL Voice ID: [id number] Report ID: [id number]
[2020-01-10] MEDS: NA CHLORIDE 0.9% 1,000 ML IV SCH ×2 (01:57→12:00)
[2020-01-10] MEDS: LORazepam 2 MG/ML VIAL IV PRN ×2 (01:57→09:45)
[2020-01-10 05:32] LABS: Absolute Lymphocytes (CBC) 1.1 K/uL (0.7-4.9); Basophils % 0.1 % (0-1.3); Hematocrit 46.6 % (36.0-45.0); RBC Red Blood Cell Count 5.07 M/uL (3.86-4.86)
[2020-01-10 05:40] LABS: Potassium 3.8 mmol/L (3.5-5.1)
[2020-01-10] MEDS: FENTANYL CITR 100 MCG/2 ML IV PRN ×3 (07:26→13:22)
--- NOTE | 2020-01-10 08:36 | RAD REPORT ---
EXAM DESCRIPTION: RAD - Abdomen 1 View (KUB) - 01/10/2020 6:48 am CLINICAL HISTORY: Abdomen pain. FINDINGS: Contrast is present within dilated small bowel. No contrast is visualized within colon. Th is is compatible with a complete small bowel obstruction. Right femoral line in place
--- NOTE | 2020-01-10 08:38 | RAD REPORT ---
EXAM DESCRIPTION: Constantino Single View01/10/2020 6:49 am CLINICAL HISTORY: Shortness of breath COMPARISON: January 08 FINDINGS: Endotracheal tube has its tip well above the maged. Nasogastric tube is present within t he stomach. Mild left basilar atelectasis is suspected Heart is normal size
[2020-01-10] MEDS: FAMOTIDINE 20 MG/2 ML VIAL IV SCH ×2 (09:36→20:13)
[2020-01-10] MEDS: Meropenem 1,000 MG in NA CHLORIDE 0.9% 100 ML IV SCH ×2 (09:36→20:13)
[2020-01-10] MEDS: ENOXAPARIN 30 MG/0.3 ML SQ SCH (09:36)
--- NOTE | 2020-01-10 10:59 | EKG ---
Test Date: 2020-01-09 Test Time: 12:02:18 Votator Machine Operator: CÉSAR MEASUREMENT RESULTS: Intervals: Rate: 84 VT: 150 QRSD: 138 QT: 422 QTc: 498 [place]: P: 68 VT: 150 QRS: -74 T: 40 INTERPRETIVE STATEMENTS: Sinus rhythm with premature atrial complexes Right bundle branch block Left anterior fascicular block Bifascicular block Minimal voltage criteria for LVH, may be normal variant Abnormal ECG Compared to ECG 11/17/2019 10:40:21 Atrial premature complex(es) now present Sinus bradycardia no longer present T-wave abnormality no longer present Possible ischemia no longer present Bifascicular block still present Electronically Signed On 01-10-20 10:56:22 CDT by Anthony Ramirez
--- NOTE | 2020-01-10 11:31 | P.PN ---
Subjective Date of Service: 01/10/20 Primary Care Provider: Dr. Hughes Chief Complaint: Nausea, vomiting abdominal pain Patient remain intubated. Blood pressure is stable. Urine output has improved, serum creatinine has started trending down. Repeat KUB shows complete small bowel obstruction. Physical Examination - Vital Signs Temperature: 97.1 F Blood Pressure: 109/80 Pulse: 80 Respirations: 15 Pulse Ox (%): 94 - Physical Exam General: Other (Awake, follows commands.) HEENT: Other (ETT, NG-tube to suction in place.) Neck: Supple Respiratory: Clear to auscultation bilaterally, Normal air movement Cardiovascular: No edema, Regular rate/rhythm, Normal S1 S2 Capillary refill: <2 Seconds Gastrointestinal: No tenderness, Other (High-pitched bowel sounds), Distended Musculoskeletal: No swelling, No erythema Integumentary: No rashes Neurological: Other (Awake, follows commands, nonfocal.) - Studies Medications List Reviewed: Yes Assessment And Plan - Current Problems (Diagnosis) (1) Small bowel obstruction Current Visit: Yes Status: Acute (2) History of rectal cancer Current Visit: Yes Status: Acute (3) Acute renal failure Current Visit: Yes Status: Acute (4) Cardiac arrest Current Visit: Yes Status: Acute - Plan Start weaning trial and extubate today. Pulmonary is following. Continue IV hydration. Nephrology and cardiology following. Optimize electrolytes. Echocardiogram: Unremarkable. Acute renal failure is improving Per Dr. Ruelas, conservative management for now given patient high risk of surgery and reported cardiac arrest with anesthesia. Continue NG-tube to suction. TPN for prolonged NPO status. Central line placed for TPN Serial abdominal examination. Prophylactic antibiotic coverage. DVT prophylaxis.
[2020-01-10] MEDS ORDERED: KCL 20 MEQ/100 mL IVPB 20 MEQ/100 ML BAG IV SCH (12:00)
[2020-01-10 12:31] LABS: Magnesium 2.3 mg/dL (1.8-2.4); Phosphorus 3.3 mg/dL (2.5-4.9)
--- NOTE | 2020-01-10 12:48 | P.PN ---
Subjective Date of Service: 01/10/20 Primary Care Provider: Dr. Hughes Chief Complaint: Patient on a ventilator Subjective: Improving (Patient is improving still has significant abdominal tenderness colored the spontaneous breathing trial no arrhythmia is) Review of Systems is unable to be obtained Physical Examination - Vital Signs Temperature: 97.1 F Blood Pressure: 109/80 Pulse: 80 Respirations: 15 Pulse Ox (%): 94 - Physical Exam General: Alert Respiratory: Clear to auscultation bilaterally Gastrointestinal: Normal bowel sounds, Rebound (Significant tenderness with rebound) - Studies Medications List Reviewed: Yes Assessment & Plan - Problems (Diagnosis) (1) Peritonitis Current Visit: Yes Status: Acute Plan: Patient has small-bowel obstruction no evidence of respiratory compromise plan to wean and extubate today continue with broad-spectrum antibiotic she is still very tender laparotomy has been postponed white count is still elevated vital signs stable blood cultures ordered continue with meropenem vancomycin renal function is improving
--- NOTE | 2020-01-10 12:50 | ECHO ---
HEIGHT: 5 ft 2 in WEIGHT: 242 lb 0 oz DATE OF STUDY: 01/09/[address]: Anthony Ramirez MD 2-DIMENSIONAL: YES M.MODE: YES DOPPLER: YES COLOR FLOW: YES TDS: NO PORTABLE: YES DEFINITY: NO BUBBLE STUDY: NO DIAGNOSIS: TACHYCARDIA CARDIAC HISTORY: CATHERIZATION: NO SURGERY: NO PROSTHETIC VALVE: NO PACEMAKER: NO MEASUREMENTS (cm) DIASTOLIC (NORMALS) SYSTOLIC (NORMALS) IVSd 1.0 (0.6-1.2) LA Diam 3.6 (1.9-4.0) LVEF 51% LVIDd 5.0 (3.5-5.7) LVIDs 3.7 (2.0-3.5) %FS 26% LVPWd 1.2 (0.6-1.2) Ao Diam 3.0 (2.0-3.7) 2 DIMENSIONAL ASSESSMENT: RIGHT ATRIUM: NORMAL LEFT ATRIUM: NORMAL RIGHT VENTRICLE: NORMAL LEFT VENTRICLE: NORMAL TRICUSPID VALVE: NORMAL MITRAL VALVE: MITRAL ANNULAR CALCIFICATION PULMONIC VALVE: NORMAL AORTIC VALVE: NORMAL PERICARDIAL EFFUSION: NONE AORTIC ROOT: NORMAL LEFT VENTRICULAR WALL MOTION: NORMAL. DOPPLER/COLOR FLOW: MILD TRICUSPID REGURGITATION. COMMENTS: NORMAL LEFT VENTRICULAR SIZE AND FUNCTION. MITRAL ANNULAR CALCIFICATION. NO WALL MOTION ABNORMALITY. TRICUSPID REGURGITATION - MILD. NO EFFUSION. TECHNOLOGIST: TOMMY TOMLINSON
--- NOTE | 2020-01-10 12:55 | PN ---
Subjective: The patient was admitted with small-bowel obstruction. Patient had asystole yesterday. Patient was with fluid resuscitation. Blood pressure maintained, intubated. Today, more awake. Physical Examination: Vital Signs: When I saw the patient, blood pressure 109/80, pulse of 80, blood pressure 109/80, puls e of 80. Chest: Clear to auscultation. Heart: S1, S2. Regular. Abdomen: Distended, tender. Extremities: Trace edema. Laboratory Data: WBC 15.4, H and H 14.9/46.6, platelets 218. Sodium 143, potassium 3.8, bicarb 28, BUN 40, creatinine 1.5, calcium 8.4. Current Medications: Patient is on meropenem 1000 b.i.d., vancomycin, promethazine, Lovenox, Pepcid, Zofran, IV fluid normal saline 100 per hour, fentanyl, morphine. Laboratory Data: Sodium 143, potassium 3.8, bicarb 28, BUN 40, creatinine down to 1.5, calcium 8.4. WBC 15.4, H and H 14.9/46.6, platelets 218. Assessment And Plan: 1.Acute kidney injury secondary to prerenal, recovering, nonoliguric, good urine output, looked to m e normal volume. I am going to decrease IV fluid to 50 per hour and we will monitor. 2.Hypertension, currently marginal. Keep holding all the blood pressure medications. 3.Small-bowel obstruction, as by primary. Follow up with Surgery. 4.Hypokalemia. We will supplement. CARRIE/KAELA Voice ID: [id number] Report ID: [id number]
--- NOTE | 2020-01-10 13:55 | PN ---
Ms. Rivas was admitted to the ICU yesterday from the operating room after short episode of cardiac ar rest. Today, she was intubated. She remains intubated this morning. Apparently, her abdominal surg charlette has been canceled. There is a plan to extubate her now. Plan to continue TPN and maybe perform the surgery later. Yesterday because of her cardiac arrest, an echocardiogram that was ordered was n ormal. She had normal magnesium, potassium, and calcium. She has not had 1 PVC since she was in the ICU. What happened to her still is rather a dilemma. We do not have any rhythm strips to show asys tole or ventricular tachycardia as that was reported, although a brief episode of CPR was done. Josiane le, this certainly could have been a vagal reaction or could have been a reaction to the medica tion she got for anesthesia. Nevertheless, I do not intend to put her on any antiarrhythmics at this point unless she shows some arrhythmia. DAYTON/KAELA Voice ID: [id number] Report ID: [id number]
[2020-01-10] MEDS ORDERED: AA 5%/D20W/ELECTROLYTES-TPN 2,000 ML, Lipids 20% 250 ML with MULTIVITAMINS INJ 10 ML IV SCH ×3 (17:00)
[2020-01-10] MEDS ORDERED: D50W 25 GM/50 ML SYRINGE/VIAL IV PRN (17:47)
[2020-01-10] MEDS ORDERED: GLUCAGON 1 MG/VIAL IM PRN (17:47)
--- NOTE | 2020-01-10 18:34 | RAD REPORT ---
EXAM DESCRIPTION: RAD - Chest Single View - 01/10/2020 6:29 pm CLINICAL HISTORY: Tachypnea, low urine output, r/o volume overload Chest pain. COMPARISON: Chest Single View dated 01/10/2020; Abdomen 1 View (KUB) dated 01/10/2020; Abdomen 1 View (KUB) dated 01/09/2020; Chest Single View dated 01/09/2020 FINDINGS: Portable technique limits examination quality. The lungs are grossly clear. The heart is normal in size. No displaced fractures.Enteric tube descend s in the stomach. ET tube appears to been removed. IMPRESSION: No acute intrathoracic process suspected.
[2020-01-10] MEDS ORDERED: NA CHLORIDE 0.9% 250 ML IV ONE ×2 (19:45→22:57)
--- NOTE | 2020-01-10 22:07 | PN ---
Date of Progress Note: 01/10/2020 Diagnosis: Small bowel obstruction. History Of Present Illness: Mrs. Rivas is a 74-year-old patient with small bowel obstruction and she was taken to the OR and attempt to do a laparotomy, but case have to postponed due to respiratory fa ilure and cardiac arrhythmia. Patient was taken to the OR to the ICU and do a cardia workup and medi mell workup. Patient was extubated today. The KUB is still showing small bowel obstruction. Patient is awake and alert. She got extubated. I am trying to communicate with her. Physical Examination: Chest: Bilateral breath sounds. Abdomen: Soft and depressible. No rigidity. Extremities: Good capillary refill. Laboratory Data: WBC count is 15.4 with a hemoglobin of 14.9. KUB today shows contrast present in t he dilated small bowel. No contrast visualized in the colon and no free air. Assessment: This is a 74-year-old patient with multiple problems, small bowel obstruction is one of them. She has also cardiac arrhythmia, also respiratory failure. I fully explained to the patient, before. We understand the high risk of this surgery. We understand their hesitancy to go fo r surgery since only the trial last time just by anesthesia only, she became unstable immediately, bu t the medical doctors has not been able to find any specific reason for it including the cardia derrick p. So, we offered him once again the options that include laparotomy, possible resection, possible o stomy as before. I understand today they are still hesitant to move forward. Tomorrow, we going to approach them once again, at least the and explained to him that the bowel is still obstructe d. The WBC count is going to increase. At that moment, we are going to have the decision of continue with surgery. We are still waiting for his consent. ANIL/DAVIDL Voice ID: [id number] Report ID: [id number]
[2020-01-11] MEDS: INSULIN -REGULAR HUMAN 50 UNIT/0.5 ML ML SQ SCH ×4 (00:28→18:00)
[2020-01-11] MEDS: VANCOMYCIN 2 GM in NA CHLORIDE 0.9% 500 ML IVPB SCH (01:24)
[2020-01-11] MEDS: FENTANYL CITR 100 MCG/2 ML IV PRN ×4 (05:05→22:00)
[2020-01-11 05:24] LABS: Absolute Lymphocytes (CBC) 0.7 K/uL (0.7-4.9); Hematocrit 48.2 % (36.0-45.0); Lymphocytes % 4.2 % (15.3-44.8); MPV 10.2 fL (7.6-11.3); RBC Red Blood Cell Count 5.15 M/uL (3.86-4.86)
[2020-01-11 05:42] LABS: Albumin 1.5 g/dL (3.4-5.0); Bilirubin Total 0.7 mg/dL (0.2-1.0); Magnesium 2.4 mg/dL (1.8-2.4)
[2020-01-11] MEDS: NA CHLORIDE 0.9% 1,000 ML IV SCH (08:00)
[2020-01-11] MEDS: Meropenem 1,000 MG in NA CHLORIDE 0.9% 100 ML IV SCH ×2 (08:43→20:06)
[2020-01-11] MEDS: FAMOTIDINE 20 MG/2 ML VIAL IV SCH ×2 (08:50→20:06)
[2020-01-11 09:04] LABS: Blood Morphology Comment NOT SEEN (NOT SEEN); Platelet Estimate ADEQ
[2020-01-11] MEDS ORDERED: D5 0.45 NS 1,000 ML IV SCH (10:00)
--- NOTE | 2020-01-11 10:05 | EKG ---
Test Date: 2020-01-10 Test Time: 04:23:35 Rubber Compounder: RT MEASUREMENT RESULTS: Intervals: Rate: 87 IN: 158 QRSD: 148 QT: 422 QTc: 507 [place]: P: 38 IN: 158 QRS: -68 T: -3 INTERPRETIVE STATEMENTS: Normal sinus rhythm Right bundle branch block Left anterior fascicular block Bifascicular block Abnormal ECG Compared to ECG 01/09/2020 12:02:18 Atrial premature complex(es) no longer present Left ventricular hypertrophy no longer present Bifascicular block still present Electronically Signed On 01-11-20 10:03:05 CDT by Anthony Ramirez
[2020-01-11] MEDS: NACHLORIDE 0.45% 1,000 ML IV SCH ×2 (10:48→23:32)
--- NOTE | 2020-01-11 11:01 | RAD REPORT ---
EXAM DESCRIPTION: CT - Head Brain Wo Cont - 01/11/2020 10:48 am CLINICAL HISTORY: AMS COMPARISON: No comparisons TECHNIQUE: Axial 5 mm thick images of the head were obtained without IV contrast. All CT scans are performed using dose optimization technique as appropriate and may include automated exposure control or mA/KV adjustment according to patient size. FINDINGS: No intracranial hemorrhage, mass, edema or shift of mid-line structures. No acute infarcti on changes seen. No cortical edema or sulcal effacement. Patient does have mild to moderate atrophy c hanges. There are chronic ischemic changes in the cerebral white matter basal ganglia, thalamus and b rainstem tissues. Ventricles are in proportion to volume loss. Mastoid air cells are clear. Small frontal sinuses are clear. Near complete opacification of the left maxillary sinus with significant right maxillary sinus opacification. Sphenoid sinuses clear. No acute bony findings. IMPRESSION: Atrophy and chronic ischemic changes are present as detailed. No acute intracranial find ing seen. Chronic ischemic changes can mask nonhemorrhagic acute CVA. MR follow-up could be performed if there are concerns for stroke if the patient is able to undergo that examination.
--- NOTE | 2020-01-11 11:44 | PN ---
Date of Progress Note: 01/11/2020 Subjective: Patient today has altered mental status. Patient was admitted with acute kidney injury and small bowel obstruction. Had code with asystole and cardiac arrhythmia. Acute kidney injury, st art recovering. Physical Examination: Vital Signs: Blood pressure 120/86, pulse of 93. Patient was extubated. Patient had good urine out put of 1000. Chest: Decreased entry bilateral base. Heart: S1, S2. Regular. Abdomen: Soft. Tenderness on the upper part. Extremities: Trace edema. Laboratory Data: WBC 17.6, H and H 15.3/48.2, platelets 223. Sodium 145, potassium 4, bicarb 26, BU N 50, creatinine 1.6, GFR of 31, blood sugar still elevated. Calcium 8.4, phosphorus 2, magnesium of 2.4. Albumin 1.5. Current Medications: The patient on include: 1.Meropenem. 2.Vancomycin. 3.Lovenox. 4.Pepcid. 5.Normal saline at 75 per hour. 6.TPN. Assessment And Plan: 1.Acute kidney injury secondary to prerenal, still on the low volume status. I am going to continue TPN. I am going to adjust the TPN. We will monitor the patient. 2.Hypertension, currently hypotension. Keep holding all blood pressure medication. 3.Hypophosphatemia, hypernatremia. We will adjust the TPN. 4.Small bowel obstruction as by surgery. MORENO Voice ID: [id number] Report ID: [id number]
[2020-01-11] MEDS: ENOXAPARIN 30 MG/0.3 ML SQ SCH (11:52)
--- NOTE | 2020-01-11 12:38 | P.PN ---
Subjective Date of Service: 01/11/20 Primary Care Provider: Dr. Hughes Chief Complaint: Altered mental status Patient's condition is stable she is still arousable the tender abdomen Review of Systems is unable to be obtained Physical Examination - Vital Signs Temperature: 97.8 F Blood Pressure: 120/86 Pulse: 93 Respirations: 26 Pulse Ox (%): 97 - Physical Exam General: Other (Arousable answers appropriately) HEENT: Atraumatic Neck: Supple Respiratory: Clear to auscultation bilaterally, Diminished Cardiovascular: No edema, Regular rate/rhythm Gastrointestinal: Tenderness, Guarding (Generalized severe tenderness in rebound) Musculoskeletal: No clubbing, No swelling - Studies Medications List Reviewed: Yes Assessment & Plan - Problems (Diagnosis) (1) Peritonitis Current Visit: Yes Status: Acute Plan: Patient appears to have an acute abdomen worsening renal function white count is elevated patient to undergo surgical exploration tomorrow is currently on TPN on meropenem vancomycin blood cultures are so far negative oxygenation satisfactory
--- NOTE | 2020-01-11 13:20 | P.PN ---
Subjective Date of Service: 01/11/20 Primary Care Provider: Dr. Hughes Chief Complaint: Altered mental status Patient was successfully extubated yesterday. She is tolerating Ventimask with good oxygen saturation. She is confused, Urine output has improved but remain concentrated. Blood pressure has been stable. Physical Examination - Vital Signs Temperature: 97.8 F Blood Pressure: 120/86 Pulse: 93 Respirations: 26 Pulse Ox (%): 97 - Physical Exam General: Other (Open eyes to verbal but nonverbal.) HEENT: Mucous membr. moist/pink Neck: Supple Respiratory: Clear to auscultation bilaterally, Normal air movement Cardiovascular: No edema, Regular rate/rhythm, Normal S1 S2 Capillary refill: <2 Seconds Gastrointestinal: Hypoactive, Distended, Tenderness (Diffuse) Musculoskeletal: No swelling, No erythema Integumentary: No rashes Neurological: Other (Open eyes to verbal, spontaneous movement in all extremities.) - Studies Medications List Reviewed: Yes Assessment And Plan - Current Problems (Diagnosis) (1) Small bowel obstruction Current Visit: Yes Status: Acute (2) History of rectal cancer Current Visit: Yes Status: Acute (3) Acute renal failure Current Visit: Yes Status: Acute (4) Cardiac arrest Current Visit: Yes Status: Acute (5) Metabolic encephalopathy Current Visit: Yes Status: Acute - Plan Patient started on TPN. Pulmonary is following. Continue IV hydration. Nephrology is following for fluid and electrolyte balance. Echocardiogram is unremarkable. Per Dr. Ruelas plans to perform surgery pending family approval. Continue NG-tube to suction. Serial abdominal examination. Head CT is negative for acute changes. Somnolence could be secondary to dehydration from 3rd spacing. Continue prophylactic antibiotic coverage. DVT prophylaxis.
--- NOTE | 2020-01-11 16:08 | PN ---
Date of Progress Note: 01/11/2020 Addendum: Reason For Service: Complete small bowel obstruction, renal insufficiency, morbid obesity, previous respiratory failure, leukocytosis. History Of Present Illness: This is the case of a 74-year-old patient with small bowel obstruction. Please refer to my previous dictation for the sequence of events for the last few days. Currently, patient still have the obstruction, has not resolved on its own. The medical doctors are still worki ng on her case, but they believe by tonight or tomorrow morning, they will be clearing this patient f or surgical intervention. We discussed the case with the family, with at [phone]. We h ad a long conversation about the pros and cons of surgical intervention. She has high risk for havin g complication including, but not limited to infection, bleeding, damage to adjacent structures, anes thesia complication, NH, even . He also understood this might not relieve her symptoms, she mike ht need more than one surgical intervention. She has multiple surgeries on her abdomen, even though we considered several approach. I discussed the case with the shift of surgery today as a second opi nion. He was glad to give a second opinion. Since we have not relieved her obstruction and she is d eteriorating, we will see if we can at least do the bowel resection or even at that cost put an ileos connie, something to at least open those bowel loops, which is right now a complete block. The family understands the natural emergency going on right now, understands about the situation with the haji virus going at this moment. We are going to try and protect the best we can, but there is no way to once again protect to 100%. In this case, this is an urgent case with no improvement and even though the risks are there, the benefit in this case, the family believes, is going to be higher. At that moment, patient then once finished the workup, we are going to book her for exploratory laparotomy, p ossible resection, possible ostomy. There is an option if we see it is possible, we might do a loop ileostomy just to relieve the obstruction if possible. We are not sure if it is possible since the p atient has previous abdominal surgeries and we expect dense adhesions. This may require intervention in the future, but at least once we have this emergency and she improved her clinical condition, the n we will consider going back and see the alternatives. At this moment, the family understand the ri sks and they still want to go and proceed with surgery. ANIL/KAELA Voice ID: [id number] Report ID: [id number]
[2020-01-11] MEDS: LIPIDS 20% IV SCH ×4 (17:00)
[2020-01-11] MEDS: MULTIVITAMINS IV SCH ×4 (17:00)
[2020-01-11] MEDS: [UNRECOGNIZED DRUG - OTHER] IV SCH ×4 (17:00)
[2020-01-12] MEDS: FENTANYL CITR 100 MCG/2 ML IV PRN ×4 (02:59→20:13)
[2020-01-12] MEDS: INSULIN -REGULAR HUMAN 50 UNIT/0.5 ML ML SQ SCH ×5 (06:00→23:34)
[2020-01-12 06:16] LABS: Basophils % 0.1 % (0-1.3); Hematocrit 50.8 % (36.0-45.0); Lymphocytes % 4.3 % (15.3-44.8); MPV 10.3 fL (7.6-11.3)
[2020-01-12 06:53] LABS: Magnesium 2.5 mg/dL (1.8-2.4); Phosphorus 2.3 mg/dL (2.5-4.9)
[2020-01-12 06:57] LABS: Albumin 1.4 g/dL (3.4-5.0); Bilirubin Total 0.5 mg/dL (0.2-1.0); Potassium 4.1 mmol/L (3.5-5.1)
[2020-01-12] MEDS ORDERED: FENTANYL CITR 250 MCG/5 ML ONE (07:08)
[2020-01-12] MEDS ORDERED: dexAMETHasone 10 MG/ML VIAL ONE (07:08)
[2020-01-12] MEDS ORDERED: Phenylephrine HCl 10 MG/ML 1 ML VIAL ONE ×3 (07:08→09:05)
[2020-01-12] MEDS ORDERED: EPHEDRINE SULF 50 MG/ML VIAL ONE (07:08)
[2020-01-12] MEDS ORDERED: ROCURONIUM 50 MG/5 ML VIAL IV ONE (07:08)
[2020-01-12] MEDS ORDERED: ETOMIDATE 20 MG/10 ML VIAL IV ONE ×2 (07:09→07:10)
[2020-01-12] MEDS: ENOXAPARIN 30 MG/0.3 ML SQ SCH (07:25)
[2020-01-12] MEDS: FAMOTIDINE 20 MG/2 ML VIAL IV SCH ×2 (07:59→20:13)
[2020-01-12 08:00] LABS: Blood Morphology Comment NOT SEEN (NOT SEEN); Platelet Estimate ADEQ; Urine White Blood Cell Casts OK
[2020-01-12] MEDS ORDERED: VECURONIUM 10 MG/VIAL IV ONE (08:11)
[2020-01-12] MEDS ORDERED: NA CHLORIDE 0.9% 1,000 ML ONE (08:19)
[2020-01-12] MEDS: Meropenem 1,000 MG in NA CHLORIDE 0.9% 100 ML IV SCH ×4 (08:27→20:12)
[2020-01-12] MEDS ORDERED: ALBUMIN HUM 5% 250 ML IV ONE (08:39)
[2020-01-12] MEDS ORDERED: NA CHLORIDE 0.9% 100 ML IV ONE (09:06)
[2020-01-12] MEDS: NACHLORIDE 0.45% 1,000 ML IV SCH ×2 (09:32→09:34)
--- NOTE | 2020-01-12 10:56 | P.BOP ---
Preoperative diagnosis: peritonitis, Small Bowel Obstruction, renal insuffiency , hx colon CA Postoperative diagnosis: same plus extensive adhesions, bowel ischemis, bowel perforation, abscess Primary procedure: Emergent exploratory laparotomy, Extensive BEAR Secondary procedure: Small bowel resection with anastomosis, drainage of intrabdominal abscess Shirt Folder: Eileen Josue (Junior) Estimated blood loss: 100cc Specimen: Small bowel Findings: small bowel obstruction,, ischemic bowel ischemia Anesthesia: General Complications: None Drain(s): MISHA drain Transferred to: Recovery Room Condition: Critical
[2020-01-12] MEDS ORDERED: Ringers Lactate 1,000 ML IV ONE (10:57)
--- NOTE | 2020-01-12 11:07 | RAD REPORT ---
EXAM DESCRIPTION: RAD - Chest Single View - 01/12/2020 10:38 am CLINICAL HISTORY: S/P Surgery Chest pain. COMPARISON: Chest Single View dated 01/10/2020; Chest Single View dated 01/10/2020; Abdomen 1 View ([facility]) dated 01/10/2020; Abdomen 1 View ([facility]) dated 01/09/2020 FINDINGS: Portable technique limits examination quality. Enteric tube is: The stomach. Tip of the ET tube is above the maged. Trace bilateral pleural effusio ns. The heart is mildly enlarged in size. No displaced fractures.
[2020-01-12] MEDS ORDERED: NOREPINEPHRINE 4 MG in D5W 250 ML IV PRN (11:25)
[2020-01-12] MEDS: Ringers Lactate 1,000 ML IV SCH ×2 (11:33→23:33)
--- NOTE | 2020-01-12 11:34 | P.PN ---
Subjective Date of Service: 01/12/20 Primary Care Provider: Dr. Hughes Chief Complaint: Altered mental status Patient was taken to OR this morning. Intra op findings include bowel perforation, abscess, small-bowel obstruction and adhesions. Per report. Abscess was drained, small bowel resected, end to end anastomosis done, adhesions released. Per report the patient became severely hypotensive and required phenylephrine drip. Patient seen after OR. She remained intubated, she is currently normotensive on phenylephrine drip. She is unresponsive. Physical Examination - Vital Signs Temperature: 97 F Blood Pressure: 129/87 Pulse: 96 Respirations: 16 Pulse Ox (%): 97 - Physical Exam General: Unresponsive HEENT: Other (Intubated) Respiratory: Other (Bilateral upper airway transmitted sounds.) Cardiovascular: No edema Gastrointestinal: Distended Musculoskeletal: No swelling Integumentary: No rashes Neurological: Other (Unresponsive.) - Studies Medications List Reviewed: Yes Assessment And Plan - Current Problems (Diagnosis) (1) Small bowel obstruction Current Visit: Yes Status: Acute (2) History of rectal cancer Current Visit: Yes Status: Acute (3) Acute renal failure Current Visit: Yes Status: Acute (4) Cardiac arrest Current Visit: Yes Status: Acute (5) Metabolic encephalopathy Current Visit: Yes Status: Acute (6) Intra-abdominal abscess Current Visit: Yes Status: Acute (7) Bowel perforation Current Visit: Yes Status: Acute (8) Hypovolemic shock Current Visit: Yes Status: Acute (9) Septic shock Current Visit: Yes Status: Acute - Plan Continue aggressive care. Continue mechanical ventilation. Resuscitated with IV fluids. Weaned off phenylephrine drip as tolerated. Pulmonary is following. Nephrology also following. Continue IV hydration. Nephrology is following for fluid and electrolyte balance. Continue antibiotics. Follow peritoneal fluid culture. Monitor intake and output. Optimize electrolytes. DVT prophylaxis.
--- NOTE | 2020-01-12 12:34 | P.PN ---
Subjective Date of Service: 01/12/20 Primary Care Provider: Dr. Hughes Chief Complaint: Altered mental status subjective 74-year-old female with significant past medical history of rectal cancer, status post surgery, radiation and chemotherapy back in 2007 admitted with bowel obstruction , pt didnt respond to medical treatment , scheduled for surgery, now intubated today Intubated, on levophed oliguric cont IVF and pressers poor prognosis Past Medical History: 1. Hypertension. 2. Rectal CA status post resection, status post chemo and radiation, diagnosis was 2007, last chemo 2008. Past Surgical History: 1. Hysterectomy. 2. Ileostomy. 3. Bone marrow removal. Allergy: Erythromycin. Physical exam general: intubated obese Neck; Supple, No elevated JVD hear: RRR, normal S1,2 no murmur or rub Chest: CTAB, no rales or wheezes Abdomen: abdominbal dressing with Drainage tubes Extremities No edema or ulcer Assessment And Plan: ROXANA resolved due to prerenal azotemia will switch to 1/2 NS Bowel obstruction S/P surgical intervention Septic shock cont on pressers and Abx Poor prognosis Physical Examination - Vital Signs Temperature: 97 F Blood Pressure: 129/87 Pulse: 96 Respirations: 14 Pulse Ox (%): 97 - Studies Medications List Reviewed: Yes
--- NOTE | 2020-01-12 12:39 | P.PN ---
Subjective Date of Service: 01/12/20 Primary Care Provider: Dr. Hughes Chief Complaint: Altered mental status Patient is 74 years of age status post and a small bowel perforation she has undergone a laparotomy patient underwent done small-bowel resection lysis of adhesion and drainage of abscesses and minimal dose of Levophed currently being weaned off the some IV fluid boluses renal function is now normal minimal oxygen patient is responsive Review of Systems is unable to be obtained Physical Examination - Vital Signs Temperature: 97 F Blood Pressure: 129/87 Pulse: 96 Respirations: 14 Pulse Ox (%): 97 - Physical Exam General: Alert Respiratory: Clear to auscultation bilaterally, Diminished Cardiovascular: No edema Gastrointestinal: Tenderness - Studies Medications List Reviewed: Yes Assessment & Plan - Problems (Diagnosis) (1) Peritonitis Current Visit: Yes Status: Acute Plan: Patient admitted with a poor status post bowel resection drainage of abscess doing better more alert weaned off Levophed IV fluid boluses continue with present medication renal function is improving patient is on TPN continue with meropenem and Levophed
[2020-01-12] MEDS: VANCOMYCIN 2 GM in NA CHLORIDE 0.9% 500 ML IVPB SCH (13:52)
[2020-01-12] MEDS: PROMETHAZINE INJ 25 MG/ML AMP IV PRN (15:51)
--- NOTE | 2020-01-12 15:54 | OP ---
Surgeon: Domingo Ruelas MD Drop Hammer Pile Driver Operator: CAMPBELL Gonsalez. Preoperative Diagnoses: Peritonitis, small bowel obstruction, renal insufficiency, respiratory failu re, history of colon cancer. Postoperative Diagnoses: Peritonitis, small bowel obstruction, renal insufficiency, respiratory fail ure, history of colon cancer, extensive intraabdominal adhesions, bowel ischemia, bowel perforation, intraabdominal abscess. Procedure: Emergent exploratory laparotomy, extensive lysis of adhesions, small bowel resection with anastomosis, and drainage of intraabdominal abscess. Specimen: Small bowel. Anesthesia: General plus local. Drains: MISHA #10 x2. Findings: Small bowel obstruction, bowel ischemia, intraabdominal abscess, and extensive intraabdomi nal adhesions. Indications: This is the case of a female with multiple medical problems, comes with bowel obstructi on several hours ago, about 48-72 hours ago. We had an attempt to take her for surgery for laparotom y since the bowel obstruction was not improving, but before we can do the surgery, she went in cardia c and respiratory arrest with cardiac arrhythmias and V-tach. Anesthesia filling it was not safe to start the surgery, so the patient was a postpone. The medical doctors have been working on her tryin g to resuscitate her and optimize her the best they can to go for this intervention. I explained to the patient's family, the high-risk of mortality with intervention or without intervention. Without intervention, we risk in the chance of a complete bowel ischemia and sepsis from the bowel perforatio n. I discussed the case with the patient and her yesterday with the primary doctor. Today, they had consent to go for surgical intervention. They understand the risks of from this inter vention, but also understand there is some chance that we may be able to proceed with the surgery. S o, they signed a consent and they were aware of the situation and critical condition. The benefits, alternatives, and risks of surgery, which means laparotomy, possible resection, possible ostomy were fully explained to the patient, which include, but are not limited to, infection, bleeding, damage to adjacent structures, anesthesia complication, intraabdominal abscess, SC, and even . The husba nd also understand this may not relieve any of her symptoms. She might need more than one surgical i ntervention. We assembled OR team, called them emergently. Description Of Procedure: The patient was brought to the operating room, placed in supine position. Anesthesia was done without complication. Abdominal area was prepped and draped in a sterile fashio n. A time-out was called. We could not do it laparoscopic as it is too distended, too tense, so we proceeded to make a small incision in the abdomen. Immediately, we saw some bowel content. So we no te that there must be some ischemia or perforation inside. So we extended the laparotomy. We spend about an hour just trying to get through the adhesions. Patient had previous bowel resection for col on cancer and also colostomy and then reversal colostomy. So, we expect those adhesions. We were ab le to do it in an efficient way to address the area of the small bowel. We found a segment of the sm all bowel that is beyond repair. This have to be resected. Since the patient's vital signs so far r emained stable in anesthesia and they are coping out with resuscitation, I proceeded to identify the proximal and distal areas. It is clear the point of the obstruction at this moment. We obtained pro ximal and distal control, transect that with a LV 75 that was approaching on distal. The mesenteric was transected with a LigaSure. There was a decision of leaving the ostomies on her versus the anas tomosis in that area. The area of anastomosis does not look ischemic. We are still proximal to the small bowel. If we give out ileostomy in this case, the patient will not be able to absorb the nutri tion and she will be submitted to a second surgery and the patient's family is obviously trying to av oid that since we do not know if she is going to recover from this one. It will take me the same isaias unt of time doing anastomosis versus just do ostomies. The bowel looks viable and if she pulled thro ugh this disease then she at least have a connection in that area to get nutrition and not be dependi ng on parenteral nutrition the rest of her life. So we did not see the area of the bowel, it looks v iable, so we made proximal and distal enterotomies and fired through them LV 75. Suctioned the prox imal and distal area and then transect that with a TA 60. Excellent anastomosis. No ischemia seen i n that anastomosis. Good closure. Mesentery was closed with 0 chromic. The rest of the bowel was a lready followthrough from the ligament of Treitz up to the area of the obstruction and also from ther e off to the area of the ileocecal valve. The rest of the bowel looked intact at least in this surge ry. Ascending, transverse, and descending colon looks also viable. Once we put the anastomosis in, we reinforced the area. Put also a silk to reinforce the anastomosis. We profusely did irrigation w ith at least 10 L of saline warm water until completely clean. We visualized all the areas of the st omach, looks soft and compressible; liver with no extraluminal masses seen. After we irrigated until clear with more than 10 L of warm saline, we checked the anastomosis again. It still looked viable, pink. The rest of the bowel still have some peristalsis to it. We cleaned all the bowel content fr om the peritoneal cavity with irrigation as much as we can. Left 2 MISHA drains in the abdomen and flan k of the abdomen. They were exiting through another new incision. Once we check hemostasis complete ly, we checked the area of the lysis of adhesions with no enterotomy seen once again. No bleeding in that area. All the right upper quadrant, left upper quadrant, and lower abdomen were also irrigated since they have some content in that area until clear. At that moment, I proceeded then to put the omentum over our anastomosis area, irrigated once again until clear, then we proceeded then to obtain sponge count and instrument counts correct. Once we have that, we then proceeded to close the fasci a with #2 nylon in a running fashion and left the wound open to close by secondary intention. The sp onge count and instrument counts were correct. I have to mention that from the OR, we moved the erma ent directly to the ICU on mechanical ventilation. This patient has a poor prognosis as we discussed before. We are going to continue resuscitation and proceed accordingly. The hospital is in an lewis gent situation, it is a national emergency nationwide due to the other conditions, but the hospital w as kind enough and the ICU to allow us to have this patient and give her a chance to live. We are go ing to see her in the next few days and see how the case develops. The family are fully aware of the poor prognosis. They want to see the patient. I know there are some guidelines at this moment abou t the only see patients for high risk for dying and she clearly qualify for that since the patient we are not sure if she is going to be alive in the next 24 hours. So, I discussed the case with the st kacey in the ICU, I will leave it at the discretion of the hospital staff and the hospital administrati on to allow this unfortunate that is going through this situation to at the least be with his , understanding that he is putting also his life at risk by coming to a place where right now, w e have a restriction. He understands that. He still want to come and at least spend some time, as s mall as a second, to be with his since she has a poor prognosis with high mortality rate. HM/MODL Voice ID: [id number] Report ID: [id number]
[2020-01-12] MEDS: LORazepam 2 MG/ML VIAL IV PRN ×3 (17:06→23:34)
[2020-01-12] MEDS: [UNRECOGNIZED DRUG - OTHER] IV SCH ×4 (18:00)
[2020-01-12] MEDS: MULTIVITAMINS IV SCH ×4 (18:00)
[2020-01-12] MEDS: LIPIDS 20% IV SCH ×4 (18:00)
[2020-01-12] MEDS: MIDAZOLAM HCL 2 MG/2 ML INJ IV PRN (18:30)
[2020-01-13] MEDS: FENTANYL CITR 100 MCG/2 ML IV PRN (02:36)
[2020-01-13] MEDS: INSULIN -REGULAR HUMAN 50 UNIT/0.5 ML ML SQ SCH ×3 (05:21→17:55)
[2020-01-13 05:41] LABS: Basophils % 0.2 % (0-1.3); Lymphocytes % 5.5 % (15.3-44.8); MPV 10.7 fL (7.6-11.3); RBC Red Blood Cell Count 4.54 M/uL (3.86-4.86)
[2020-01-13 06:06] LABS: Magnesium 2.2 mg/dL (1.8-2.4); Phosphorus 1.6 mg/dL (2.5-4.9)
[2020-01-13 07:10] LABS: Albumin 1.2 g/dL (3.4-5.0); Bilirubin Total 0.7 mg/dL (0.2-1.0); Protein, Total 4.4 g/dL (6.4-8.2)
[2020-01-13 07:19] LABS: Potassium 4.6 mmol/L (3.5-5.1)
[2020-01-13 08:50] LABS: Blood Morphology Comment NOT SEEN (NOT SEEN); Platelet Estimate ADEQ; Toxic Granulation 1+
[2020-01-13] MEDS: FAMOTIDINE 20 MG/2 ML VIAL IV SCH ×2 (09:30→20:29)
[2020-01-13] MEDS: ENOXAPARIN 40 MG/0.4 ML SQ SCH (09:30)
[2020-01-13] MEDS: Meropenem 1,000 MG in NA CHLORIDE 0.9% 100 ML IV SCH ×2 (09:30→20:29)
[2020-01-13] MEDS ORDERED: ALBUMIN HUMAN 25% 100 ML IV ONE (10:21)
--- NOTE | 2020-01-13 11:00 | P.PN ---
Subjective Date of Service: 01/13/20 Primary Care Provider: Dr. Hughes Chief Complaint: Altered mental status Patient's blood pressure has stabilized. She is off pressors. She remained lethargic and unresponsive without sedation. WBC count is trending down. Patient has been afebrile. Physical Examination - Vital Signs Temperature: 97.9 F Blood Pressure: 116/70 Pulse: 86 Respirations: 25 Pulse Ox (%): 96 - Physical Exam General: Unresponsive HEENT: Other (NG-tube to suction-draining bile colored fluid.) Neck: JVD not distended Respiratory: Clear to auscultation bilaterally, Other (On ventilation.) Cardiovascular: Regular rate/rhythm, Normal S1 S2 Gastrointestinal: Other (No bowel sound), Distended Musculoskeletal: No erythema, Swelling (Left upper extremity-likely dependent edema.) Neurological: Other (Unresponsive. She moves all extremities spontaneously.) Urinary: Pearson catheter (Good urine output.) - Studies Medications List Reviewed: Yes Assessment And Plan - Current Problems (Diagnosis) (1) Small bowel obstruction Current Visit: Yes Status: Acute (2) History of rectal cancer Current Visit: Yes Status: Acute (3) Acute renal failure Current Visit: Yes Status: Acute (4) Cardiac arrest Current Visit: Yes Status: Acute (5) Metabolic encephalopathy Current Visit: Yes Status: Acute (6) Intra-abdominal abscess Current Visit: Yes Status: Acute (7) Bowel perforation Current Visit: Yes Status: Acute (8) Hypovolemic shock Current Visit: Yes Status: Acute (9) Septic shock Current Visit: Yes Status: Acute - Plan Continue mechanical ventilation. Awaiting trial once mental status has improved. Continue TPN. NG-tube to suction in place. General surgery to follow. Pulmonary is following. Nephrology is following for fluid and electrolyte balance. Continue antibiotics. Follow peritoneal fluid culture. Optimize electrolytes. Monitor CBC and BMP. DVT prophylaxis.
--- NOTE | 2020-01-13 11:27 | PN ---
Date of Progress Note: 01/13/2020 Subjective: The patient had surgery yesterday. Tolerated the surgery very well. When I saw the pat ient, the patient on vent, not on any pressor. The patient on TPN. Patient on LR 70. Physical Examination: Vital Signs: When I saw the patient, blood pressure 116/70, pulse of 86, afebrile. The patient had good urine output of 700. Has GI loss of 1200. Chest: Decreased air entry, bilateral base. Heart: S1, S2. Regular. Abdomen: Tender. Tube drainage with dressing on the midline. Extremities: Trace edema. Neurologic: Response to pain, on vent. Laboratory Data: WBC 18.2, H and H 13.6/42, platelets of 154. Sodium 145, potassium 4.6, bicarb 24, BUN 46, creatinine 1.1, calcium 8.2, phosphorus 1.6, magnesium of 2.2, albumin 1.2. Current Medications: The patient on include, 1.Meropenem. 2.Vancomycin. 3.Albumin. 4.Lovenox. 5.Sedation. 6.LR. 7.Pepcid. 8.Zofran. 9.TPN. Assessment And Plan: 1.Acute kidney injury, secondary to prerenal, recovered back to baseline, looked to me normal volume . I can discontinue LR. We will continue on the TPN. 2.Hypertension, currently controlled, off all the blood pressure medications. We will monitor on th e IV fluid. 3.Sepsis with septic shock, secondary to intraabdominal abscess, ischemic intestine, status post res ection. Patient is on aggressive del toro cover. We will follow up vancomycin trough. Continue follow u p with Surgery. Patient is going to be remain on TPN. 4.Hypophosphatemia, hypokalemia, hypomagnesemia. We will continue supplement. We will adjust the T PN. 5.Malnourished, secondary to long small bowel obstruction and ischemic intestine. Continue on the T PN. Time Spent: 45 minutes. MORENO Voice ID: [id number] Report ID: [id number]
--- NOTE | 2020-01-13 12:07 | P.PN ---
Subjective Date of Service: 01/27/20 Primary Care Provider: Dr. Hughes Chief Complaint: Respiratory failure Patient's condition is stable she is off vasopressors minimally responsive Review of Systems is unable to be obtained Physical Examination - Vital Signs Temperature: 97.9 F Blood Pressure: 116/70 Pulse: 86 Respirations: 25 Pulse Ox (%): 96 - Physical Exam General: Other (Intermittently arousable) Respiratory: Clear to auscultation bilaterally, Diminished Cardiovascular: Regular rate/rhythm Gastrointestinal: Hypoactive, Distended - Studies Medications List Reviewed: Yes Assessment & Plan - Problems (Diagnosis) (1) Peritonitis Status: Resolved Plan: Peritonitis is improving white count is declining hemodynamically stable (2) Respiratory failure Status: Acute Plan: Patient is is status post small-bowel resection sepsis is improving minimal oxygen requirement on 30% change to SIMV pressure support INR has been discontinued continue with TPN Qualifiers: Chronicity: acute
--- NOTE | 2020-01-13 12:31 | RAD REPORT ---
EXAM DESCRIPTION: RAD - Chest Single View - 01/13/2020 6:08 am CLINICAL HISTORY: ETT placement Chest pain. COMPARISON: Chest Single View dated 01/12/2020; Chest Single View dated 01/10/2020; Chest Single View dated 01/10/2020; Abdomen 1 View (KUB) dated 01/10/2020 FINDINGS: Portable technique limits examination quality. The lungs are grossly clear. The heart is normal in size. Small trace bilateral pleural effusions.ET tube tip is above the maged. Enteric tube coils in the stomach.
--- NOTE | 2020-01-13 13:42 | P.PN ---
Date of Service: 01/13/20 I spoke to patient's . He wants to make patient DNR in line with her wishes. Code status changed to reflect DNR.
[2020-01-13] MEDS ORDERED: POTASSIUM PHOS IN 0.9 % NACL 15 MMOL/250 ML BAG IV ONE ×2 (14:00→15:00)
[2020-01-13] MEDS: ACETAMINOPHEN 650MG/RECT SUPP PR PRN (16:43)
[2020-01-13] MEDS ORDERED: MULTIVITAMINS IV SCH ×4 (17:00)
[2020-01-13] MEDS ORDERED: [UNRECOGNIZED DRUG - OTHER] IV SCH ×4 (17:00)
[2020-01-13] MEDS ORDERED: LIPIDS 20% IV SCH ×4 (17:00)
[2020-01-14] MEDS: ACETAMINOPHEN 650MG/RECT SUPP PR PRN (00:27)
[2020-01-14] MEDS: LORazepam 2 MG/ML VIAL IV PRN (00:28)
[2020-01-14] MEDS: MIDAZOLAM HCL 2 MG/2 ML INJ IV PRN (01:15)
[2020-01-14] MEDS: VANCOMYCIN 2 GM in NA CHLORIDE 0.9% 500 ML IVPB SCH (01:49)
[2020-01-14 05:42] LABS: Arterial Blood Carboxyhemoglob 0.9 % (0-1.5); Blood Gas Oxyhemoglobin 94.6 % (94-97); Blood O2 Saturation 96.4 % (92-98.5)
[2020-01-14 05:50] LABS: Albumin 1.1 g/dL (3.4-5.0); Bilirubin Total 0.7 mg/dL (0.2-1.0); Potassium 4.2 mmol/L (3.5-5.1)
[2020-01-14] MEDS: INSULIN -REGULAR HUMAN 50 UNIT/0.5 ML ML SQ SCH ×4 (05:52→18:00)
[2020-01-14 06:00] LABS: Absolute Lymphocytes (CBC) 0.2 K/uL (0.7-4.9); Basophils % 0.2 % (0-1.3); Lymphocytes % 2.8 % (15.3-44.8); MPV 10.7 fL (7.6-11.3); Magnesium 2.3 mg/dL (1.8-2.4); Phosphorus 2.8 mg/dL (2.5-4.9); RBC Red Blood Cell Count 4.03 M/uL (3.86-4.86)
[2020-01-14 06:26] LABS: Toxic Granulation 2+
[2020-01-14 06:27] LABS: Blood Morphology Comment NOT SEEN (NOT SEEN); Platelet Estimate DECR; Platelets, Giant FEW
[2020-01-14] MEDS: ENOXAPARIN 40 MG/0.4 ML SQ SCH (09:00)
[2020-01-14] MEDS: Meropenem 1,000 MG in NA CHLORIDE 0.9% 100 ML IV SCH ×2 (09:15→20:22)
[2020-01-14] MEDS: FAMOTIDINE 20 MG/2 ML VIAL IV SCH ×2 (09:15→20:22)
--- NOTE | 2020-01-14 09:50 | RAD REPORT ---
EXAM DESCRIPTION: [facility] Single View01/14/2020 8:07 am CLINICAL HISTORY: Shortness of breath COMPARISON: January 12 FINDINGS: An endotracheal tube has its tip 3.5 centimeters above the maged. Nasogastric tube is poo rly visualized Left base is hazy which may indicate a mild infiltrate, atelectasis or small pleural effusion Right lung appears clear Heart is borderline enlarged
--- NOTE | 2020-01-14 11:25 | P.PN ---
Subjective Date of Service: 01/14/20 Primary Care Provider: Dr. uHghes Chief Complaint: Respiratory failure Patient blood pressure has been stable. She is more interactive, opened eyes to verbal. Nurse report BM. Not sure if this is residual but patient has bowel sounds. Leukocytosis has resolved. She had an episode of fever yesterday. Physical Examination - Vital Signs Temperature: 98.1 F Blood Pressure: 148/70 Pulse: 71 Respirations: 15 Pulse Ox (%): 100 - Physical Exam General: Other (Somnolent) HEENT: Mucous membr. moist/pink Neck: Supple, JVD not distended Respiratory: Clear to auscultation bilaterally, Normal air movement Cardiovascular: Normal pulses, Regular rate/rhythm, Normal S1 S2, Edema (Left upper extremity) Gastrointestinal: Hypoactive, Other (Dressed midline abdominal surgical wound. Dressing is not soaked.), Distended Integumentary: Erythema (Erythema-sacral area.) Neurological: Other (She squeezes both hands to verbal. She moves both lower extremities spontaneously) Urinary: Pearson catheter (Clear urine.) - Studies Medications List Reviewed: Yes Assessment And Plan - Current Problems (Diagnosis) (1) Small bowel obstruction Current Visit: Yes Status: Acute (2) History of rectal cancer Current Visit: Yes Status: Acute (3) Acute renal failure Current Visit: Yes Status: Acute (4) Cardiac arrest Current Visit: Yes Status: Acute (5) Metabolic encephalopathy Current Visit: Yes Status: Acute (6) Intra-abdominal abscess Current Visit: Yes Status: Acute (7) Bowel perforation Current Visit: Yes Status: Acute (8) Hypovolemic shock Current Visit: Yes Status: Acute (9) Septic shock Current Visit: Yes Status: Acute - Plan Continue mechanical ventilation. Weaning trial once mental status improve. Continue TPN. NG-tube to suction in place. General surgery to follow. Pulmonary is following. Nephrology is following for fluid and electrolyte balance. Continue antibiotics. Optimize electrolytes. Monitor CBC and BMP. DVT prophylaxis-SCD. Hold Lovenox given decrease in platelet count.
--- NOTE | 2020-01-14 13:45 | PN ---
Date of Progress Note: 01/14/2020 Subjective: The patient doing the same, but more awake, follows simple command. Still on vent. Req uiring 30% FiO2. Physical Examination: Vital Signs: Blood pressure 148/70, pulse of 71. Patient had good urine output of 1000. Had draina ge from the NG tube of 200; from the wound, it is around another liter. Chest: Decreased entry, bilateral base. Heart: S1, S2. Regular. Abdomen: Tender. Dressing with drainage. Extremities: Trace edema. Laboratory Data: WBC 8.3, H and H 12.1/37, and platelets of 84. Sodium 149, potassium 4.2, bicarb 2 6, BUN 48, creatinine 1, GFR of 53, calcium 8.2. Current Medications: The patient is on include: 1.Meropenem. 2.Vancomycin. 3.Sedation. 4.Pepcid. 5.Fentanyl. 6.TPN. Assessment And Plan: 1.Acute kidney injury, secondary to prerenal/toxic acute tubular necrosis, recovered resolved. 2.Hypernatremia secondary to the GI loss. I am going to go ahead and adjust the total pa renteral nutrition. 3.Hypokalemia, resolved. 4.Hypophosphatemia. We will adjust the total parenteral nutrition. 5.Small-bowel obstruction, status post surgery with resection, now short-bowel syndrome. We will fo llow up with surgery. 6.Hypercalcemia, resolved. 7.Respiratory failure as by Pulmonary. CARRIE/KAELA Voice ID: [id number] Report ID: [id number]
[2020-01-14] MEDS: FENTANYL CITR 100 MCG/2 ML IV PRN ×2 (15:41→20:22)
[2020-01-14] MEDS: LIPIDS 20% IV SCH ×7 (19:13)
[2020-01-14] MEDS: MULTIVITAMINS IV SCH ×7 (19:13)
[2020-01-14] MEDS: [UNRECOGNIZED DRUG - OTHER] IV SCH ×7 (19:13)
[2020-01-15] MEDS: FENTANYL CITR 100 MCG/2 ML IV PRN ×4 (02:26→21:37)
[2020-01-15 05:34] LABS: Blood Gas Oxyhemoglobin 94.8 % (94-97); Blood O2 Saturation 96.7 % (92-98.5)
[2020-01-15 05:58] LABS: Absolute Lymphocytes (CBC) 0.3 K/uL (0.7-4.9); Basophils % 0.1 % (0-1.3); Hematocrit 41.4 % (36.0-45.0); Lymphocytes % 3.6 % (15.3-44.8); MPV 11.5 fL (7.6-11.3); RBC Red Blood Cell Count 4.54 M/uL (3.86-4.86)
[2020-01-15] MEDS: INSULIN -REGULAR HUMAN 50 UNIT/0.5 ML ML SQ SCH ×4 (06:00→16:35)
[2020-01-15 06:07] LABS: Albumin 1.3 g/dL (3.4-5.0); Bilirubin Total 0.6 mg/dL (0.2-1.0); Phosphorus 3.2 mg/dL (2.5-4.9); Protein, Total 4.4 g/dL (6.4-8.2)
[2020-01-15 06:09] LABS: Magnesium 2.8 mg/dL (1.8-2.4); Potassium 4.3 mmol/L (3.5-5.1)
--- NOTE | 2020-01-15 07:26 | RAD REPORT ---
EXAM DESCRIPTION: RAD - Chest Single View - 01/15/2020 5:48 am CLINICAL HISTORY: ETT placement COMPARISON: January 13 TECHNIQUE: AP portable chest image was obtained 01/15/2020 5:48 am . FINDINGS: Endotracheal tube has been placed. Tip is T3 level top of the aortic arch. NG tube is in p lace extending below the diaphragm. Left base opacification is present obscuring left hemidiaphragm. This is similar to the prior study. Heart size accentuated by shallow inspiration. No vascular engorg ement. No pneumothorax or enlarging pleural effusion. No acute bony abnormality seen. No acute aortic findings suspected. IMPRESSION: Limited supine portable exam shows left base opacification partially obscuring the left hemidiaphragm. Pattern is similar to comparison. ET tube and NG tube are in good position.
[2020-01-15] MEDS: Meropenem 1,000 MG in NA CHLORIDE 0.9% 100 ML IV SCH ×2 (09:11→21:36)
[2020-01-15] MEDS: FAMOTIDINE 20 MG/2 ML VIAL IV SCH ×2 (09:11→21:37)
--- NOTE | 2020-01-15 11:46 | P.PN ---
Subjective Date of Service: 01/15/20 Primary Care Provider: Dr. Hughes Chief Complaint: Nausea, vomiting abdominal pain Subjective: Other (Patient remains intubated. Patient alert but not cooperative to commands.) Physical Examination - Vital Signs Temperature: 98.1 F Blood Pressure: 87/67 Pulse: 77 Respirations: 12 Pulse Ox (%): 93 - Physical Exam General: Alert, Other (Patient remains intubated. Alert but not cooperative to commands.) HEENT: Atraumatic Neck: Supple Respiratory: Clear to auscultation bilaterally, Normal air movement Cardiovascular: Normal pulses, Regular rate/rhythm Gastrointestinal: Hypoactive, Other (Postoperative changes noted. MISHA tubes in place.) Integumentary: Other (Cool extremities) Neurological: Normal tone - Studies Medications List Reviewed: Yes Assessment & Plan Discharge Plan: LTAC Plan to discharge in: Greater than 2 days Physician Review Additional Text: Impression: Small-bowel obstruction with ischemic bowel status post emergent exploratory laparotomy, extensive lysis of adhesions, small-bowel resection with anastomosis , drainage of intra-abdominal abscess Acute respiratory failure with cardiac arrest Acute renal injury Hypertension Hyperlipidemia Elevated liver function Thrombocytopenia Plan: Small-bowel obstruction with ischemic bowel status post emergent exploratory laparotomy, extensive lysis of adhesions, small-bowel resection with anastomosis , drainage of intra-abdominal abscess: Patient remains intubated. Patient continues with TPN. Will monitor blood pressure closely. Patient may require fluids verses vasopressor if blood pressure decreases. Will discuss with nephrology, pulmonology and surgery. Patient may require further surgical intervention. Patient currently DNR at this time. Will update . Will need to consider long-term acute care facility placement if the patient remains intubated. Acute respiratory failure with cardiac arrest: Will discuss with pulmonology. Patient remains intubated. Acute renal injury: Will speak with nephrology. Nephrology has adjusted medications, fluids and TPN. Hypertension: Patient remains on off blood pressure medication Hyperlipidemia: Will hold medication at this time Elevated liver function: Will need to monitor closely. Will discuss with specialty care. Will need to consider liver failure versus other etiology Thrombocytopenia: Will obtain further lab-haptoglobin, peripheral smear, LDH, retic count. Will monitor CBC closely. Will discuss further with specialty care. Will need to hold DVT prophylaxis. Patient may require FFP and platelets if this continues to drop and patient has bleeding. Time Spent Managing Pts Care (In Minutes): 55
[2020-01-15 12:16] LABS: Protime INR 1.1
[2020-01-15 12:17] LABS: RBC Red Blood Cell Count 4.39 M/uL (3.86-4.86)
[2020-01-15] MEDS: LORazepam 2 MG/ML VIAL IV PRN (12:45)
[2020-01-15 13:03] LABS: Ferritin 582.6 ng/mL (8-388)
[2020-01-15 13:07] LABS: Blood Morphology Comment NOT SEEN (NOT SEEN); Platelet Estimate DECR
[2020-01-15] MEDS: VANCOMYCIN 2 GM in NA CHLORIDE 0.9% 500 ML IVPB SCH (13:34)
--- NOTE | 2020-01-15 14:00 | PN ---
Date of Progress Note: 01/15/2020 Diagnoses: History of small-bowel obstruction, respiratory insufficiency, renal insufficiency, statu s post small-bowel resection, extensive lysis of adhesions, perforated bowel, ischemic bowel. Subjective: The 74-year-old patient has above diagnoses. Right now, she is awake, she is following commands, she is still on intubation. Objective: Vital Signs: Stable. Chest: Bilateral breath sounds. Patient is intubated. Abdomen: Soft and depressible. Intact surgical site. Bowel sounds hypoactive. Extremities: Good capillary refill. MISHA drain still clear. Laboratory Data: WBC count coming down from 22 to 7.7 and a hemoglobin of 13.7. INR is 1.1. Sodium is 148, chloride is 117. Assessment: A 74-year-old patient with major surgery, laparotomy, bowel resection, anastomosis, exte nsive lysis of adhesions, ischemic bowel, perforation of the bowel, renal insufficiency, respiratory insufficiency, cardiac arrhythmias, but so far she is looking better with respect at this moment with all this. From the surgical standpoint, we need to give her parenteral nutrition since they are not sure intestines are ready or not yet to be used. Medical issues per medical doctors including respi rator. Wet-to-dry dressing to the abdomen. HM/MODL Voice ID: [id number] Report ID: [id number]
[2020-01-15] MEDS ORDERED: WATER FOR INJ,STERILE 10 ML IV SCH (15:00)
[2020-01-15] MEDS ORDERED: ALTEPLASE 2 MG/VIAL IV SCH (15:00)
[2020-01-15] MEDS: MULTIVITAMINS IV SCH ×7 (17:27)
[2020-01-15] MEDS: LIPIDS 20% IV SCH ×7 (17:27)
[2020-01-15] MEDS: [UNRECOGNIZED DRUG - OTHER] IV SCH ×7 (17:27)
--- NOTE | 2020-01-15 20:31 | PN ---
Date of Progress Note: 01/15/2020 Chief Complaint: Acute kidney injury, nonoliguric secondary to prerenal azotemia, acute tubular necrosis. Subjective: Renal function has improved. Patient is critically ill. She remains on ventilator and requirement for FiO2 is titrated down to 30%. Patient is more alert. Review of Systems: Unobtainable due to patient's condition. Physical Examination: Lungs: Decreased anterior bilateral crackles at bases. Heart: S1, S2. Regular rate and rhythm. Abdomen: Obese, dressing in place. Extremities: Some edema present in both legs. Laboratory Data: Sodium 138, potassium 4.3, chloride 117, CO2 of 28, BUN 48, creatinine 1.04, glucose 134, calcium 8.6, magnesium is 2.8, phosphorus 3.2, LDH 375. Hemoglobin is 13.7, WBC 7.7, platelet count 49,000. Impression And Plan: 1. Acute on chronic kidney injury. Patient has chronic kidney disease stage 3. She developed acute kidney injury with acute tubular necrosis, recovered from acute kidney injury. 2. Hypernatremia secondary to gastrointestinal fluid loss. Patient is on parenteral nutrition. It was adjusted. 3. Hypokalemia. Patient was treated and potassium improving to normal range. 4. Hypophosphatemia. Continue parenteral nutrition. Phosphorus level in acceptable range. 5. Small-bowel obstruction status post surgical resection. 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 Patient will need a followup sitter. 6. Hypercalcemia due to hemoconcentration, resolved. Continue to monitor phosphorus and calcium level. 7. Respiratory failure, on vent and Pulmonary recommendation. I spent total 36 min including 25 min to coordinate care plan. EB/MODL Voice ID: [id number] Report ID: [id number] [facility]
[2020-01-16] MEDS: FENTANYL CITR 100 MCG/2 ML IV PRN ×2 (02:28→14:30)
[2020-01-16] MEDS: LORazepam 2 MG/ML VIAL IV PRN (04:05)
[2020-01-16] MEDS: INSULIN -REGULAR HUMAN 50 UNIT/0.5 ML ML SQ SCH ×4 (06:00→18:00)
[2020-01-16 06:08] LABS: Absolute Lymphocytes (CBC) 0.4 K/uL (0.7-4.9); Basophils % 0.1 % (0-1.3); Hematocrit 39.5 % (36.0-45.0); RBC Red Blood Cell Count 4.32 M/uL (3.86-4.86)
[2020-01-16 06:44] LABS: Albumin 1.3 g/dL (3.4-5.0); Bilirubin Total 0.7 mg/dL (0.2-1.0); Magnesium 3.2 mg/dL (1.8-2.4); Potassium 4.5 mmol/L (3.5-5.1)
[2020-01-16 07:43] LABS: Blood Morphology Comment NOT SEEN (NOT SEEN); Platelet Estimate DECR; Urine White Blood Cell Casts OK
[2020-01-16] MEDS: Meropenem 1,000 MG in NA CHLORIDE 0.9% 100 ML IV SCH ×2 (08:49→21:16)
[2020-01-16] MEDS: FAMOTIDINE 20 MG/2 ML VIAL IV SCH ×2 (08:51→21:16)
[2020-01-16] MEDS: THIAMINE 200 MG/2 ML INJ IVP SCH (09:44)
[2020-01-16] MEDS ORDERED: D5W 1,000 ML IV SCH ×2 (10:00→22:00)
--- NOTE | 2020-01-16 10:48 | RAD REPORT ---
EXAM DESCRIPTION: [facility]ino Single View01/16/2020 10:22 am CLINICAL HISTORY: sob COMPARISON: January 14 FINDINGS: Endotracheal and nasogastric tubes remain in place Left base is mildly hazy unchanged Right lung appears clear. Heart is borderline enlarged
[2020-01-16] MEDS: MIDAZOLAM HCL 2 MG/2 ML INJ IV PRN (12:26)
--- NOTE | 2020-01-16 12:34 | P.PN ---
Subjective Date of Service: 01/27/20 Primary Care Provider: Dr. Hughes Chief Complaint: Respiratory failure Patient is minimally responsive severe thrombocytopenia chest x-ray clear no evidence of active sepsis minimal oxygen requirement Review of Systems is unable to be obtained Physical Examination - Vital Signs Temperature: 97.6 F Blood Pressure: 124/84 Pulse: 96 Respirations: 18 Pulse Ox (%): 97 - Physical Exam General: Other (Minimally responsive) Respiratory: Clear to auscultation bilaterally Cardiovascular: No edema, Regular rate/rhythm Gastrointestinal: Hypoactive - Studies Medications List Reviewed: Yes Assessment & Plan - Problems (Diagnosis) (1) Peritonitis Status: Resolved Plan: Peritonitis is improving white count is declining hemodynamically stable (2) Respiratory failure Status: Acute Plan: Respiratory failure chest x-ray clear minimal oxygen requirement had IV thymine hypernatremia niece to be addressed by Nephrology will discuss with general eddi aquino regarding further management of the abdominal wound Dc vancomycin may cause thrombocytopenia which is progressive Qualifiers: Chronicity: acute
--- NOTE | 2020-01-16 13:03 | PN ---
Date of Progress Note: 01/16/2020 Subjective: Patient was admitted with small-bowel obstruction. Patient had history of short-bowel s yndrome secondary to resection before. Patient had cardiac arrest, intubated, then undergo the surge ry, day after patient stabilize. Patient being on vent, response to pain stimuli. Physical Examination: Vital Signs: Blood pressure 124/84, pulse of 96. Patient had urine output of 1700 and has accumulat ion of GI drainage for total output of 2600. Patient negative on the last couple of days. Yesterday , she has negative of 1 L, day before has 500. Chest: Decreased entry, bilateral base. Heart: S1, S2. Regular. Abdomen: Dressing with too drainage and NG tube tender all over without any guarding. Patient on ve nt and sedated. Extremities: Trace edema. Neuro: Response to pain stimuli. Move all extremities without focality. Laboratory Data: WBC 6.8, H and H 12.9/39.5, platelets of 31. Sodium 149, potassium 4.5, bicarb 27, BUN 43, creatinine of 1, blood sugar of 213, calcium 8.5, magnesium of 3.2. Current Medications: The patient on include: 1.Meropenem. 2.Vancomycin. 3.Hydralazine. 4.Pepcid. 5.Zofran. 6.TPN. 7.Thiamine. Assessment And Plan: 1.Acute kidney injury secondary to prerenal, recovered, resolved. 2.Hypernatremia. Electrolyte imbalance. I went ahead and adjust her TPN. We will increase the vol ume to establish better volume control and we will follow up. 3.Hypertension, currently hypotension. Hold all blood pressure medication. 4.Small-bowel obstruction, previous surgery. We will follow up with Surgery and hospitalist. 5.Respiratory failure as by Pulmonary. MA/MODL Voice ID: [id number] Report ID: [id number]
--- NOTE | 2020-01-16 14:20 | P.PN ---
Subjective Date of Service: 01/16/20 Primary Care Provider: Dr. Hughes Chief Complaint: Respiratory failure Subjective: Other (Patient remains intubated.) Physical Examination - Vital Signs Temperature: 97.6 F Blood Pressure: 136/46 Pulse: 88 Respirations: 16 Pulse Ox (%): 97 - Physical Exam General: Other (Patient remains intubated. Response to stimuli noted.) HEENT: Atraumatic Neck: Supple Respiratory: Clear to auscultation bilaterally, Normal air movement Cardiovascular: Normal pulses, Regular rate/rhythm Gastrointestinal: Other (Postop changes noted) Neurological: Other (Patient response to pain and stimuli. Still no purposeful movement or follows commands.) - Studies Medications List Reviewed: Yes Assessment & Plan Discharge Plan: LTAC Plan to discharge in: Greater than 2 days Physician Review Additional Text: Impression: Small-bowel obstruction with ischemic bowel status post emergent exploratory laparotomy, extensive lysis of adhesions, small-bowel resection with anastomosis , drainage of intra-abdominal abscess Acute respiratory failure with cardiac arrest Acute renal injury Hypertension Hyperlipidemia Elevated liver function Thrombocytopenia likely related to vancomycin Plan: Small-bowel obstruction with ischemic bowel status post emergent exploratory laparotomy, extensive lysis of adhesions, small-bowel resection with anastomosis , drainage of intra-abdominal abscess: Patient remains intubated. Case discussed at length with pulmonology and nephrology. Nephrology to adjust TPN. Continue monitor the patient closely. Pulmonology discontinued vancomycin as this may be the cause of the thrombocytopenia. Continue IV meropenem. Patient response to stimuli. Still not cooperative to commands. Will try to wean off vent. Will evaluate for encephalopathy. Case discussed with Neurology. Will obtain CT scan of the head and EEG to further evaluate. Case discussed with . Will continue to follow closely. Will still continue to pursue long- term acute care facility placement. Will discuss with social services manager. Acute respiratory failure with cardiac arrest: Case discussed with pulmonology. Will try to wean off ventilator. Acute renal injury: Nephrology continues to make adjustments to TPN. Hypertension: Patient remains on off blood pressure medication Hyperlipidemia: Will hold medication at this time Elevated liver function: Liver function tests slightly improved. Will continue to monitor. Thrombocytopenia likely related to vancomycin: Case discussed with pulmonology. Will discontinue vancomycin at this time. Time Spent Managing Pts Care (In Minutes): 55
[2020-01-16 14:30] LABS: Urine Appearance CLOUDY; Urine Bilirubin NEGATIVE (NEG); Urine Blood 2+ (NEG); Urine Color DK YELLOW; Urine Glucose NEGATIVE (NEG); Urine Protein 2+ (NEG); Urine Urobilinogen 0.2 mg/dL (0.2-1.0); Urine pH 5.5 (5.0-7.0)
[2020-01-16 14:33] LABS: Urine Microscopic Reflex ORDER UMIC
--- NOTE | 2020-01-16 14:36 | RAD REPORT ---
EXAM DESCRIPTION: CT - Head Brain Wo Cont - 01/16/2020 2:27 pm CLINICAL HISTORY: encephalopathy, altered mental status COMPARISON: Head Brain Wo Cont dated 01/11/2020 TECHNIQUE: Axial 5 mm thick images of the head were obtained without IV contrast. All CT scans are performed using dose optimization technique as appropriate and may include automated exposure control or mA/KV adjustment according to patient size. FINDINGS: No intracranial hemorrhage, mass, edema or shift of mid-line structures. No cortical edema or sulcal effacement. No anoxic brain injury findings. Moderate severity atrophy and chronic ischemi c changes are present matching the January 10 study. Decreased attenuation in the posterior limb marketing operations intern al capsule bilaterally extending into the deep periventricular white matter is believed to be chronic ischemic change matching comparison. Ventricles are in proportion to the volume loss. Mastoid air cells are clear. Complete opacification of the left maxillary sinus is present. Most of t he sphenoid and right maxillary sinuses are opacified. NG tube and ET tube are in place. No acute bony findings. IMPRESSION: No acute intracranial findings identifiable. Atrophy and chronic ischemic pattern is no t clearly different from comparison. No significant change from January 10 imaging.
[2020-01-16 14:59] LABS: Urine Bacteria 20-50 /HPF (<20); Urine RBC <5 /HPF (NONE SEEN); Urine Yeast MANY (NONE SEEN)
[2020-01-16 15:02] LABS: Urine Culture Reflex Order REFLEXED
[2020-01-16] MEDS: DEXTROSE 10% IV SCH ×8 (17:00)
[2020-01-16] MEDS: WATER IV SCH ×8 (17:00)
[2020-01-16] MEDS: AMINO ACIDS 10% IV SCH ×8 (17:00)
[2020-01-16] MEDS: [UNRECOGNIZED DRUG - OTHER] IV SCH ×8 (17:00)
[2020-01-16] MEDS: LIPIDS IV SCH ×8 (17:00)
[2020-01-16 18:50] LABS: Albumin 1.4 g/dL (3.4-5.0); Bilirubin Total 0.8 mg/dL (0.2-1.0); Potassium 4.1 mmol/L (3.5-5.1); Protein, Total 4.2 g/dL (6.4-8.2)
[2020-01-17] MEDS: INSULIN -REGULAR HUMAN 50 UNIT/0.5 ML ML SQ SCH ×6 (00:26→20:00)
[2020-01-17] MEDS: FENTANYL CITR 100 MCG/2 ML IV PRN ×2 (03:24→19:30)
[2020-01-17 05:59] LABS: Albumin 1.3 g/dL (3.4-5.0); Bilirubin Total 0.9 mg/dL (0.2-1.0); Magnesium 2.9 mg/dL (1.8-2.4); Potassium 4.6 mmol/L (3.5-5.1); Protein, Total 3.9 g/dL (6.4-8.2)
[2020-01-17 06:40] LABS: Absolute Lymphocytes (CBC) 0.8 K/uL (0.7-4.9); Basophils % 0.4 % (0-1.3); Hematocrit 41.1 % (36.0-45.0); Lymphocytes % 8.1 % (15.3-44.8); MPV 11.3 fL (7.6-11.3); RBC Red Blood Cell Count 4.45 M/uL (3.86-4.86)
[2020-01-17 08:22] LABS: Blood Morphology Comment NOT SEEN (NOT SEEN); Platelet Estimate DECR; Toxic Granulation PRESENT
[2020-01-17] MEDS: FAMOTIDINE 20 MG/2 ML VIAL IV SCH ×2 (08:57→20:35)
[2020-01-17] MEDS: THIAMINE 200 MG/2 ML INJ IVP SCH (08:57)
[2020-01-17] MEDS: Meropenem 1,000 MG in NA CHLORIDE 0.9% 100 ML IV SCH ×2 (08:58→16:24)
--- NOTE | 2020-01-17 11:19 | PN ---
Date of Progress Note: 01/17/2020 Subjective: Patient was admitted with small bowel obstruction. Patient undergo small bowel resectio n. Patient intubated. Patient developed hypernatremia. TPN has been changed again yesterday withou t any electrolytes. Patient still having significant hypernatremia because of the significant GI jana inage. Objective: Vital Signs: Blood pressure 101/68, pulse of 97. General: Patient had input of 1600, output of 2600, negative of 1 L. Started to be positive today. Chest: Decreased entry bilateral base. Heart: S1, S2. Regular. Abdomen: Dressing, tender, drainage with NG tube. Extremities: Plus edema. Laboratory Data: WBC 9.9, H and H 13.2/41.1, platelets 16. Sodium 148, potassium 4.6, bicarb 27, BU N 48, creatinine 1, GFR of 50, uric acid 4, calcium 8.3, magnesium 2.9. Albumin 1.3. Current Medications: 1.Meropenem. 2.Promethazine. 3.Tylenol. 4.Propofol. 5.Fentanyl. 6.Thiamine. 7.TPN. Assessment And Plan: 1.Acute kidney injury secondary to prerenal, recovered, resolved. 2.Hypernatremia secondary to significant gastrointestinal loss. Patient started to be positive becca nce. I am going to go ahead and continue on the current TPN, and we will follow up. This is the fir st 24-hour that the patient been on positive balance. We will continue on meropenem for the time jose r ng. I am going to give single dose of Lasix to facilitate more sodium diuresis, and we will follow u p. Lasix is going to be giving after the platelet transfusion. 3.Small bowel obstruction, necrotizing. Given the improvement in kidney function, I am going to go ahead and increase the frequency of the meropenem to every 8 hours. We will follow up with Surgery. 4.Positive coffee ground. H and H being stable. Follow up with the primary. Patient is going to b e receiving platelet today. 5.Respiratory failure, on vent. Will follow up with Pulmonary. MA/MODL Voice ID: [id number] Report ID: [id number]
[2020-01-17] MEDS ORDERED: NA CHLORIDE 0.9% 50 ML ONE ×2 (11:20→14:21)
[2020-01-17] MEDS: ACETAMINOPHEN 650MG/RECT SUPP PR PRN (11:27)
--- NOTE | 2020-01-17 11:37 | P.PN ---
Subjective Date of Service: 01/17/20 Primary Care Provider: Dr. Hughes Chief Complaint: Respiratory failure Subjective: Other (Patient response to pain. Still not following commands. Patient remains intubated.) Physical Examination - Vital Signs Temperature: 100.5 F Blood Pressure: 100/68 Pulse: 94 Respirations: 23 Pulse Ox (%): 93 - Physical Exam General: Other (Patient response to pain. Not following commands) HEENT: Atraumatic Neck: Supple Respiratory: Clear to auscultation bilaterally, Normal air movement Cardiovascular: Normal pulses, Regular rate/rhythm Gastrointestinal: Other (Postop changes noted) Integumentary: No cyanosis, Other (Some edema noted to the extremities bilateral ) - Studies Medications List Reviewed: Yes Assessment & Plan Discharge Plan: LTAC Plan to discharge in: 24 Hours Physician Review Additional Text: Impression: Small-bowel obstruction with ischemic bowel status post emergent exploratory laparotomy, extensive lysis of adhesions, small-bowel resection with anastomosis , drainage of intra-abdominal abscess Acute respiratory failure with cardiac arrest Acute renal injury Hypertension Hyperlipidemia Elevated liver function Thrombocytopenia likely related to inflammatory response/sepsis verses early DIC Coffee-ground emesis Plan: Small-bowel obstruction with ischemic bowel status post emergent exploratory laparotomy, extensive lysis of adhesions, small-bowel resection with anastomosis , drainage of intra-abdominal abscess now with fever suspect early sepsis: Patient remains intubated. Case discussed at length with pulmonology and nephrology. Nephrology continues to adjust TPN. Pulmonology plans to wean off ventilator. Vancomycin discontinued as this may be the cause of the thrombocytopenia. Platelet count lower today. Patient will receive platelets. Case discussed with hematology as patient now having some coffee-ground emesis from the NG tube. Suspect platelet count related to inflammation/ sepsis. Maybe early DIC. Will obtain fibrinogen, PT INR. Continue supportive measures at this time. Continue platelets to keep above 30. Patient may require cryoprecipitate if fibrinogen less than 100. CT head unremarkable. EEG done yesterday pending. Will discuss with Neurology of results. Patient still with poor prognosis. Case discussed with family welfare social work professor about the possibility of transfer to long-term acute care facility. Will continue to monitor closely. Will update on current status. Patient remains do not resuscitate. If she continues to decline will need to consider comfort measures only. Acute respiratory failure with cardiac arrest: Case discussed with pulmonology. Will try to wean off ventilator. Acute renal injury: Nephrology continues to make adjustments to TPN. Hypertension: Patient remains on off blood pressure medication Hyperlipidemia: Will hold medication at this time Elevated liver function: Liver function tests slightly improved. Will continue to monitor. Thrombocytopenia likely related to inflammatory response/sepsis verses early DIC : Case discussed with hematology. Will provide platelet count at this time. Continue with above recommendations. Coffee-ground emesis: Hemoglobin stable this time. Will recheck hemoglobin and other lab after discussion with hematology. Continue as above. Time Spent Managing Pts Care (In Minutes): 55
--- NOTE | 2020-01-17 12:08 | P.PN ---
Subjective Date of Service: 01/27/20 Primary Care Provider: Dr. Hughes Chief Complaint: Respiratory failure Patient is unresponsive now eyes fever on a ventilator hemodynamically stable Review of Systems is unable to be obtained Physical Examination - Vital Signs Temperature: 100.5 F Blood Pressure: 100/68 Pulse: 94 Respirations: 23 Pulse Ox (%): 93 - Physical Exam General: Unresponsive Respiratory: Clear to auscultation bilaterally Cardiovascular: No edema Gastrointestinal: Hypoactive - Studies Medications List Reviewed: Yes Assessment & Plan - Problems (Diagnosis) (1) Peritonitis Status: Resolved Plan: Continue with meropenem patient's is febrile thrombocytopenic possible DIC normal white count had an anti fungal agent continue with meropenem repeat blood cultures sputum cultures (2) Respiratory failure Status: Acute Plan: Respiratory failure unresponsive blood pressure stable still hypernatremic increase D5 water to 75 cc LTAC Consult pending Qualifiers: Chronicity: acute
--- NOTE | 2020-01-17 12:42 | EEG ---
CHART: [id number] TEST ID#: [id number] DATE OF STUDY: 01/16/2020 THE EEG WAS RECORDED PORTABLE IN THE ICU ON A 14 CHANNEL MACHINE. ELECTRODES WERE APPLIED IN THE USUAL MANNER USING THE INTERNATIONAL 10-20 SYSTEM. THE WAKING BACKGROUND RHYTHM IN THIS RECORD CONSISTS OF POORLY DEVELOPED AND POORLY ORGANIZED WAVES OF 7-8 HZ., IN A WIDE DISTRIBUTION WHICH DO NOT ATTENUATE NORMALLY WITH EYE OPENING. MODERATE VOLTAGE DIPHASIC AND TRIPHASIC WAVES ARE EXPRESSED INTERMITTENTLY IN THE FRONTAL, CENTRAL AND TEMPORAL REGIONS. THERE ARE NO FOCAL OR LATERALIZING FEATURES. NO EPILEPTIFORM ACTIVITY APPEARS. SLEEP DID NOT OCCUR. HYPERVENTILATION WAS NOT PERFORMED. PHOTIC STIMULATION WAS NOT PERFORMED. IMPRESSION: THIS IS A MODERATELY ABNORMAL EEG DUE TO A MODERATELY SLOW BACKGROUND AND DIAPHASIC AND TRIPHASIC WAVES EXPRESSED DIFFUSELY. THESE FINDINGS ARE CONSISTENT WITH A MODERATE DIFFUSE DISTURBANCE IN CEREBRAL FUNCTION. THE DIFFERENTIAL DIAGNOSIS INCLUDES TOXOC, METABOLIC AND HYPOXIC-ISCHEMIC ETIOLOGIES.
[2020-01-17] MEDS: D5W 1,000 ML IV SCH (13:00)
[2020-01-17] MEDS: FLUCONAZOLE 400 MG IVPB 400 MG/200 ML BAG IV SCH (13:10)
[2020-01-17 14:23] LABS: Protime INR 1.16
[2020-01-17] MEDS ORDERED: FUROSEMIDE 20 MG/ 2ML VIAL IV ONE (15:00)
[2020-01-17 16:21] LABS: MPV 10.2 fL (7.6-11.3)
[2020-01-17] MEDS: WATER IV SCH ×8 (16:24)
[2020-01-17] MEDS: LIPIDS IV SCH ×8 (16:24)
[2020-01-17] MEDS: DEXTROSE 10% IV SCH ×8 (16:24)
[2020-01-17] MEDS: AMINO ACIDS 10% IV SCH ×8 (16:24)
[2020-01-17] MEDS: [UNRECOGNIZED DRUG - OTHER] IV SCH ×8 (16:24)
[2020-01-17 17:13] LABS: Platelet Estimate DECR
--- NOTE | 2020-01-17 18:26 | PN ---
Date of Progress Note: 01/16/2020 Diagnosis: Small bowel obstruction, status post emergent laparotomy, bowel resection. Patient has b een on the ventilator. Review of Systems: Cannot be obtained. Physical Examination: Abdomen: Soft and depressible. Bowel sounds diminished. Intact surgical site. Patient is doing a wet-to-dry dressing. Extremities: Good capillary refill. Plan: Continue resuscitation by the primary doctors, ventilator per Dr. Barragan. Currently on anti biotics. Because it has been undecided about the vent or not, we preferred to continue the TPN for t his patient since she had some bowel ischemia before. Even though she looks better clinically, she i s not there yet for the bowel to be used. We can clamp the NG tube and see residuals and then will t benny it from there. HM/MODL Voice ID: [id number] Report ID: [id number]
--- NOTE | 2020-01-17 19:20 | PN ---
Date of Progress Note: 01/17/2020 Patient is status post laparotomy and bowel resection emergently. She is still on the ventilator. S he is more responsive today, still too weak for the ventilator to be removed. Midline is starting to show some discoloration, possible pseudomonas, so the plan on her will be continue dressing changes, but we are going to change to Dakin's solution or 0.25% acetic acid daily with the wet-to-dry. Angela ent is still receiving parenteral nutrition. We appreciate the primary doctor's help on that aspect. From a surgical standpoint, once again we can clamp the NG tube and check residuals. HM/MODL Voice ID: [id number] Report ID: [id number]
[2020-01-17] MEDS: SODIUM HYPOCHLORITE 0.25% 473 ML TOP SCH (20:35)
[2020-01-17 21:42] VITALS: O2SAT 100
[2020-01-18] MEDS: Meropenem 1,000 MG in NA CHLORIDE 0.9% 100 ML IV SCH ×3 (00:48→17:38)
[2020-01-18] MEDS: ACETAMINOPHEN 650MG/RECT SUPP PR PRN ×2 (03:36→13:59)
[2020-01-18] MEDS: INSULIN -REGULAR HUMAN 50 UNIT/0.5 ML ML SQ SCH ×6 (04:00→20:00)
[2020-01-18] MEDS: D5W 1,000 ML IV SCH (05:07)
[2020-01-18 05:44] LABS: Albumin 1.4 g/dL (3.4-5.0); Bilirubin Total 0.9 mg/dL (0.2-1.0); Magnesium 2.4 mg/dL (1.8-2.4); Potassium 4.3 mmol/L (3.5-5.1); Protein, Total 3.9 g/dL (6.4-8.2)
[2020-01-18 06:04] LABS: Absolute Lymphocytes (CBC) 0.6 K/uL (0.7-4.9); Basophils % 0.5 % (0-1.3); Hematocrit 33.3 % (36.0-45.0); Lymphocytes % 6.1 % (15.3-44.8); MPV 11.1 fL (7.6-11.3); RBC Red Blood Cell Count 3.68 M/uL (3.86-4.86)
--- NOTE | 2020-01-18 07:13 | P.PN ---
Subjective Date of Service: 01/18/20 Primary Care Provider: Dr. Hughes Chief Complaint: Respiratory failure Subjective: Improving, Other (Patient alert and follows commands. Patient stable this time.) Physical Examination - Vital Signs Temperature: 100.2 F Blood Pressure: 91/74 Pulse: 83 Respirations: 19 Pulse Ox (%): 97 - Physical Exam General: Alert, In no apparent distress, Cooperative, Other (Patient remains intubated) HEENT: Atraumatic Neck: Supple Respiratory: Clear to auscultation bilaterally, Normal air movement Cardiovascular: Normal pulses, Regular rate/rhythm Gastrointestinal: Other (Postoperative changes noted) Integumentary: Other (Some edema to the extremities bilateral) Neurological: Normal strength at 5/5 x4 extr, Normal tone - Studies Medications List Reviewed: Yes Assessment & Plan Discharge Plan: LTAC Plan to discharge in: Greater than 2 days Physician Review Additional Text: Impression: Small-bowel obstruction with ischemic bowel status post emergent exploratory laparotomy, extensive lysis of adhesions, small-bowel resection with anastomosis , drainage of intra-abdominal abscess Acute respiratory failure with cardiac arrest Acute renal injury Hypertension Hyperlipidemia Elevated liver function Thrombocytopenia likely related to inflammatory response/sepsis verses early DIC Coffee-ground emesis Plan: Small-bowel obstruction with ischemic bowel status post emergent exploratory laparotomy, extensive lysis of adhesions, small-bowel resection with anastomosis , drainage of intra-abdominal abscess now with fever suspect early sepsis: Patient remains intubated. Patient now alert, cooperative. Anticipate the patient will be weaned off the ventilator today. Platelets had improved but remained low today. Will transfuse 2 units of packed red blood cells. Fibrinogen stable this time. Will continue monitor CBC and fibrinogen. Case discussed with hematology yesterday. Thrombocytopenia likely from inflammatory response/sepsis. Patient continues with TPN. Nephrology to adjust. Antibiotics have been adjusted. Pulmonology continued with meropenem. Diflucan added. Surgery mentioned some exudate to the wound likely Pseudomonas. Will obtain wound culture. Surgery has adjusted wound care. Surgery mention patient not ready for NG tube feeds. Continue to monitor closely. Will update . Patient still with fever. Will discuss with team of specialist. Overall patient shows some improvement. Will discuss with social and political studies professor to continue long-term acute care facility placement or if she continues to improve likely skilled placement. Acute respiratory failure with cardiac arrest: Anticipate patient to be weaned off ventilator today. Acute renal injury: Nephrology continues to make adjustments to TPN. Hypertension: Patient remains on off blood pressure medication Hyperlipidemia: Will hold medication at this time Elevated liver function: Liver function shows improvement.. Thrombocytopenia likely related to inflammatory response/sepsis verses early DIC : Case discussed with hematology. Will provide platelet transfusion today. Keep platelet count above 20. If fibrinogen less than 100 then patient may require cryoprecipitate. Coffee-ground emesis: Hemoglobin stable this time. Hemoglobin remained stable. NG tube has been clamped as per surgery. Time Spent Managing Pts Care (In Minutes): 55
[2020-01-18 07:39] LABS: Platelet Estimate DECR; Urine White Blood Cell Casts OK
[2020-01-18 07:40] LABS: Blood Morphology Comment NOT SEEN (NOT SEEN)
[2020-01-18] MEDS: FENTANYL CITR 100 MCG/2 ML IV PRN ×3 (08:29→17:39)
[2020-01-18] MEDS: FAMOTIDINE 20 MG/2 ML VIAL IV SCH ×2 (09:00→20:40)
[2020-01-18] MEDS: THIAMINE 200 MG/2 ML INJ IVP SCH (09:00)
[2020-01-18] MEDS: LORazepam 2 MG/ML VIAL IV PRN ×2 (09:58→19:40)
[2020-01-18] MEDS ORDERED: FUROSEMIDE 20 MG/ 2ML VIAL IV SCH (11:12)
--- NOTE | 2020-01-18 11:36 | PN ---
Date of Progress Note: 01/18/2020 Subjective: Patient was admitted with small bowel obstruction, necrotizing, status post small bowel resection. Had respiratory failure, still on vent. Had acute kidney injury secondary to prerenal, d eveloped hypernatremia after. Patient being on TPN, we are adjusting it to correct the hypernatremia . Yesterday, patient received platelets. We started her on Lasix after the transfusion. Physical Examination: Vital Signs: When I saw the patient, blood pressure 113/78, pulse of 85, T-max of 100. Patient had good urine output of 1600. All over the drainage, the patient had output of 1700, positive balance o f 1300. Chest: Decreased entry bilateral bases. Heart: S1, S2. Systolic murmur. Abdomen: Tender. Extremities: Trace edema. Neurologic: Responds to voice. Follow up simple command. Patient on vent. Laboratory Data: Chest x-ray: Cardiomegaly, no significant congestion. WBC 10.2, H and H 10.9/33.3 , platelets 17. Sodium 144, trending down; potassium 4.3; bicarb 27; BUN 53; creatinine of 1, trendi ng down. GFR of 55. Calcium 7.8, magnesium 2.4. Phosphorus was not done. Albumin 1.4. Current Medications: The patient is on include: 1.Fluconazole. 2.Meropenem. 3.Reglan. 4.Sedation. 5.Pepcid. 6.D5 75 per hour. 7.TPN. Assessment And Plan: 1.Acute kidney injury secondary to prerenal, poor perfusion, acute tubular necrosis, toxic acute tub ular necrosis secondary to sepsis, recovered, resolved, slightly on the wet side. I am going to go a head and give another dose of Lasix today after the platelet transfusion and we will follow up. 2.Electrolyte imbalance with significant hypernatremia. Sodium started to trending down. I am shari g to go ahead and adjust her TPN again. 3.Hypophosphatemia, hypomagnesemia, corrected. We will adjust TPN. 4.Small bowel obstruction, short bowel syndrome. Continue TPN for the time being. Follow up with Brandi crowe and Primary. 5.Sepsis. Patient was placed on fluconazole. We will continue to follow up. 6.Respiratory failure, as by Pulmonary. MA/MODL Voice ID: [id number] Report ID: [id number]
[2020-01-18] MEDS: FLUCONAZOLE 400 MG IVPB 400 MG/200 ML BAG IV SCH (12:50)
--- NOTE | 2020-01-18 13:04 | P.PN ---
Subjective Date of Service: 01/27/20 Primary Care Provider: Dr. Hughes Chief Complaint: Respiratory failure Patient is minimally responsive plan to wean off patient on the ventilator borderline temperature thrombocytopenic Review of Systems is unable to be obtained Physical Examination - Vital Signs Temperature: 100.0 F Blood Pressure: 113/78 Pulse: 85 Respirations: 23 Pulse Ox (%): 96 - Physical Exam General: Unresponsive Respiratory: Clear to auscultation bilaterally Cardiovascular: No edema, Normal S1 S2 - Studies Medications List Reviewed: Yes Assessment & Plan - Problems (Diagnosis) (1) Peritonitis Status: Resolved Plan: Continue with meropenem patient's is febrile thrombocytopenic possible DIC normal white count had an anti fungal agent continue with meropenem repeat blood cultures sputum cultures (2) Respiratory failure Status: Acute Plan: Respiratory failure chest x-rays clear borderline temperature thrombocytopenic plan to continue wean off from the ventilator change to SIMV pressure support I have added some peep of 10 to prevent atelectasis patient is anti p.m. meropenem in addition to Diflucan high risk for fungal infection patient is also on TPN Qualifiers: Chronicity: acute
[2020-01-18] MEDS: MIDAZOLAM HCL 2 MG/2 ML INJ IV PRN ×2 (14:37→18:27)
[2020-01-18] MEDS: PROMETHAZINE INJ 25 MG/ML AMP IV PRN (14:37)
[2020-01-18] MEDS: [UNRECOGNIZED DRUG - OTHER] IV SCH ×8 (17:30)
[2020-01-18] MEDS: LIPIDS IV SCH ×8 (17:30)
[2020-01-18] MEDS: AMINO ACIDS 10% IV SCH ×8 (17:30)
[2020-01-18] MEDS: WATER IV SCH ×8 (17:30)
[2020-01-18] MEDS: DEXTROSE 10% IV SCH ×8 (17:30)
[2020-01-18] MEDS: SODIUM HYPOCHLORITE 0.25% 473 ML TOP SCH (20:51)
[2020-01-19] MEDS: Meropenem 1,000 MG in NA CHLORIDE 0.9% 100 ML IV SCH ×3 (00:11→17:30)
[2020-01-19] MEDS: ACETAMINOPHEN 650MG/RECT SUPP PR PRN (03:12)
[2020-01-19] MEDS: INSULIN -REGULAR HUMAN 50 UNIT/0.5 ML ML SQ SCH ×6 (04:00→20:00)
[2020-01-19 06:18] LABS: Albumin 1.5 g/dL (3.4-5.0); Magnesium 2.3 mg/dL (1.8-2.4); Phosphorus 5.7 mg/dL (2.5-4.9); Potassium 4.6 mmol/L (3.5-5.1)
[2020-01-19 06:22] LABS: Absolute Lymphocytes (CBC) 0.6 K/uL (0.7-4.9); Basophils % 0.3 % (0-1.3); Hematocrit 31.4 % (36.0-45.0); Lymphocytes % 6.6 % (15.3-44.8); RBC Red Blood Cell Count 3.52 M/uL (3.86-4.86)
--- NOTE | 2020-01-19 07:33 | P.PN ---
Subjective Date of Service: 01/19/20 Primary Care Provider: Dr. Hughes Chief Complaint: Respiratory failure Subjective: Other (Patient still running fever. Patient requires cooling blanket. Patient remains on ventilator. Patient appears more lethargic. Less cooperative today with commands.) Physical Examination - Vital Signs Temperature: 100.6 F Blood Pressure: 93/66 Pulse: 81 Respirations: 10 Pulse Ox (%): 99 - Physical Exam General: Other (Patient intubated. Less cooperative today. Increased lethargy) HEENT: Atraumatic Neck: Supple Respiratory: Clear to auscultation bilaterally, Normal air movement Cardiovascular: Normal pulses, Regular rate/rhythm Gastrointestinal: Normal bowel sounds, Non-distended, Other (Postop changes noted. Minimal pain throughout the abdomen but no significant change from prior) Integumentary: No warmth, No cyanosis Neurological: Normal tone - Studies Medications List Reviewed: Yes Assessment & Plan Discharge Plan: LTAC Plan to discharge in: 24 Hours Physician Review Additional Text: Impression: Small-bowel obstruction with ischemic bowel status post emergent exploratory laparotomy, extensive lysis of adhesions, small-bowel resection with anastomosis , drainage of intra-abdominal abscess Positive blood culture for fungal infection Acute respiratory failure with cardiac arrest Acute renal injury Hypertension Hyperlipidemia Elevated liver function Thrombocytopenia likely related to inflammatory response/sepsis verses early DIC Coffee-ground emesis Plan: Small-bowel obstruction with ischemic bowel status post emergent exploratory laparotomy, extensive lysis of adhesions, small-bowel resection with anastomosis , drainage of intra-abdominal abscess now with fever suspect early sepsis: Patient remains intubated. She is less alert today and less cooperative. Blood pressure remained slightly low. Patient still running fevers requiring cooling blanket. She failed her extubation trial yesterday. Platelets appear improved. No need for transfusion at this time. Continue TPN. Will discuss with nephrology about the possibility of adding IV fluids. Surgery has adjusted wound care. Surgery mentioned the other day that the patient not ready for NG tube feeds. Continue to monitor closely. I have updated the on the patient's current status and change from yesterday. Social work yesterday reported patient has been approved to go to the long-term acute care facility. Will discuss with team on whether patient is stable to be transferred. If so will transfer patient to long-term acute care facility to continue her care. Positive blood culture for fungal infection: Results still pending for sensitivities. Continue on Diflucan. Will discuss with Critical Care. Will consider Infectious Disease console to further address. Acute respiratory failure with cardiac arrest: Anticipate patient to be weaned off ventilator today. Acute renal injury: Nephrology continues to make adjustments to TPN. Patient may require IV fluids. Hypertension: Patient remains on off blood pressure medication Hyperlipidemia: Will hold medication at this time Elevated liver function: Liver function shows improvement.. Thrombocytopenia likely related to inflammatory response/sepsis verses early DIC : Case discussed with hematology. Thrombocytopenia improved. No need for transfusion today. Keep platelet count above 20. If fibrinogen less than 100 then patient may require cryoprecipitate. Coffee-ground emesis: No drop in hemoglobin noted. Hemoglobin stable this time. Continue to monitor closely. NG tube has been clamped as per surgery. Time Spent Managing Pts Care (In Minutes): 55
[2020-01-19 08:01] LABS: Blood Morphology Comment NOT SEEN (NOT SEEN); Platelet Estimate DECR; Toxic Granulation PRESENT
[2020-01-19] MEDS: ONDANSETRON 4 MG/2 ML VIAL IV PRN (08:01)
--- NOTE | 2020-01-19 08:44 | P.DS ---
Admission Date: 01/03/20 Discharge Date: 01/19/20 Primary Care Provider: Dr. Hughes Disposition: [facility]ACILITY Discharge Condition: FAIR Reason for Admission: Respiratory failure Consultations: Pulmonary-Dr. Barragan Cardiology-Dr. Mcgarry Nephrology-Dr. Webb Surgery-Dr. Ruelas Procedures: Impression: Small-bowel obstruction with ischemic bowel status post emergent exploratory laparotomy, extensive lysis of adhesions, small-bowel resection with anastomosis , drainage of intra-abdominal abscess Positive blood culture for fungal infection Acute respiratory failure with cardiac arrest Acute renal injury Hypertension Hyperlipidemia Elevated liver function Thrombocytopenia likely related to inflammatory response/sepsis verses early DIC Coffee-ground emesis Brief History of Present Illness: 74-year-old female presented with nausea, vomiting and abdominal pain. Patient with history of rectal cancer with ileostomy and reanastomosis about 3 years ago. Patient found to have small-bowel obstruction. Patient was admitted for further evaluation and treatment. Hospital Course: Patient presented with small-bowel obstruction. Patient with history of colon cancer with prior ileostomy and reanastomosis about 3 years ago. During the course her stay complications occurred. Please see progress notes for further details. Patient was seen by multiple specialists including surgery, nephrology , cardiology and critical care. Small-bowel obstruction did not improved. Prior to surgery patient developed acute respiratory failure with cardiac arrest. This unfortunately delayed surgery. The patient ultimately had surgery showing ischemic bowel with perforation. Emergent exploratory laparotomy, extensive lyses of adhesions, small-bowel resection with reanastomosis, drainage of intra-abdominal abscess was noted. Patient was started on TPN. Patient remains on the ventilator. She has been slow to get off. Patient evaluated by [facility] facility. She has been approved. Case discussed at length with critical care. Patient medically stable to be transferred to [facility] to continue her care. Prior to discharge new findings indicate positive blood culture for fungal infection. This is the likely cause of her fevers at this time. Patient on cooling blanket. Case discussed at length with pulmonology concerning medications. Medications have been adjusted. Medications have been added including doxycycline and micafungin. Patient continues with IV meropenem, IV doxycycline, and IV Micafungin. Fungal cultures have been sent out for sensitivities. Recent CT head shows no acute changes. Case has been discussed with Neurology as well. Yesterday patient was more alert and cooperative. Today patient is alert but with increased lethargy at this time. At present time acute renal injury has resolved with improvement. Nephrology has made adjustments to TPN. TPN to be continued. Patient with history of hypertension , medications have been held. Surgery has made adjustments to current wound care. Surgery has no plans for further surgical intervention. Patient also has thrombocytopenia. Thrombocytopenia likely related to inflammatory response/ sepsis verses early DIC has improved. Patient received a total of 4 units of platelets. Today platelets remain stable and improved since yesterday. Patient will be discharged to long-term [facility] to continue her care. Advanced care planning has been addressed with family. Patient remains do not resuscitate. Family still wants to continue with current care to see if they will be any improvement. Anticipate if the patient continues to decline that the family will consider comfort measures. This may need to be readdressed with family at the long-term [facility] facility. Vital Signs/Physical Exam: Temp Pulse Resp BP Pulse Ox 100.6 F 81 10 L 93/66 99 01/19/20 07:33 01/19/20 07:33 01/19/20 07:33 01/19/20 07:33 01/19/20 07:33 General: Other (Patient intubated. Increased lethargy noted today. Response to pain and voice.) HEENT: Atraumatic Neck: Supple Respiratory: Clear to auscultation bilaterally, Normal air movement Cardiovascular: Normal pulses, Regular rate/rhythm Gastrointestinal: Normal bowel sounds, Non-distended, Other (Postoperative changes noted.) Neurological: Normal strength at 5/5 x4 extr, Normal tone Laboratory Data at Discharge: WBC 9.1 K/uL (4.3-10.9) 01/19/20 05:03 Hgb 10.5 g/dL (12.0-15.0) L 01/19/20 05:03 Hct 31.4 % (36.0-45.0) L 01/19/20 05:03 Plt Count 28 K/uL (152-406) L* D 01/19/20 05:03 PT 13.7 SECONDS (9.5-12.5) H 01/17/20 13:21 INR 1.16 01/17/20 13:21 APTT 22.3 SECONDS (24.3-36.9) L 01/17/20 13:21 Sodium 145 mmol/L (136-145) 01/19/20 05:03 Potassium 4.6 mmol/L (3.5-5.1) 01/19/20 05:03 BUN 57 mg/dL (7-18) H 01/19/20 05:03 Creatinine 1.00 mg/dL (0.55-1.3) 01/19/20 05:03 Glucose 115 mg/dL (74-106) H 01/19/20 05:03 Uric Acid 4.0 mg/dL (2.6-6.0) 01/17/20 05:30 Phosphorus 5.7 mg/dL (2.5-4.9) H 01/19/20 05:03 Magnesium 2.3 mg/dL (1.8-2.4) 01/19/20 05:03 Total Bilirubin 0.9 mg/dL (0.2-1.0) 01/18/20 04:50 AST 93 U/L (15-37) H 01/18/20 04:50 ALT 67 U/L (12-78) 01/18/20 04:50 Alkaline Phosphatase 72 U/L (45-117) 01/18/20 04:50 Troponin I 0.03 ng/mL (0.0-0.045) 01/09/20 12:01 Lipase 206 U/L (73-393) 01/03/20 20:24 Home Medications: Acetaminophen [Tylenol 8 Hour] 1,300 mg PO BEDTIME 11/17/19 Albuterol Neb [Proventil 0.083% Neb Soln] 1 spray IH DAILY PRN 11/17/19 Diphenhydramine [Benadryl*] 25 g PO BEDTIME 11/17/19 Docosahexanoic AC/Epa [Fish Oil 1,000 MG*] 1 cap PO DAILY 11/17/19 Glucosamine HCl 1,500 mg PO BID 11/17/19 Iron 28 mg PO DAILY 11/17/19 L.acidoph,Paracasei, B.lactis [Probiotic] 1 cap PO DAILY 11/17/19 Linaclotide [Linzess] 290 mg PO DAILY 11/17/19 Multivitamin [Multivitamins] 1 cap PO DAILY 11/17/19 Nadolol [Corgard] 80 mg PO BEDTIME 11/17/19 Omeprazole 20 mg PO BEDTIME 11/17/19 Potassium Gluconate [Potassium] 99 mg PO DAILY 11/17/19 Pravastatin Sodium 40 mg PO BEDTIME 11/17/19 Pregabalin [Lyrica*] 75 mg PO BID 11/17/19 Senosides [Senokot*] 8.6 mg PO BEDTIME 11/17/19 Tramadol HCl [Ultram] 100 mg PO BEDTIME 11/17/19 Triamterene/Hydrochlorothiazid [Triamterene-Hctz 75-50 mg Tab] 1 tab PO DAILY Codeine/APAP [Tylenol W/Codeine #3 tab] 1 tab PO Q4HP PRN #30 tab 11/20/19 Patient Discharge Instructions: Patient with a transfer to long-term acute care facility to continue current treatment. Patient remains intubated. Patient to continue with Merrem, doxycycline, micafungin. Continue with cooling blanket to help with fever. Continue TPN. Continue current medications. Diet: NPO Activity: Bedrest Time spent managing pt's care (in minutes): 55
[2020-01-19] MEDS ORDERED: MICAFUNGIN SODIUM 100 MG VIAL IV SCH (09:00)
[2020-01-19] MEDS: FENTANYL CITR 100 MCG/2 ML IV PRN ×2 (09:15→14:02)
[2020-01-19] MEDS: MICAFUNGIN SODIUM 100 MG in NA CHLORIDE 0.9% 100 ML IV SCH (09:16)
[2020-01-19] MEDS: DOXYCYCLINE 100 MG in NA CHLORIDE 0.9% 100 ML IVPB SCH ×2 (09:16→20:44)
[2020-01-19] MEDS: FAMOTIDINE 20 MG/2 ML VIAL IV SCH ×2 (09:20→20:44)
[2020-01-19] MEDS: THIAMINE 200 MG/2 ML INJ IVP SCH (09:20)
--- NOTE | 2020-01-19 10:51 | P.PN ---
Subjective Date of Service: 01/20/20 Primary Care Provider: Dr. Hughes Chief Complaint: Respiratory failure subjective 74-year-old female with significant past medical history of rectal cancer, status post surgery, radiation and chemotherapy back in 2007 admitted with bowel obstruction , pt didnt respond to medical treatment , scheduled for surgery, now intubated today still intubated , no change in clinical ststus cont to spike fever Cont Abx as per ID Plt down to 27, will cont to monitor Past Medical History: 1. Hypertension. 2. Rectal CA status post resection, status post chemo and radiation, diagnosis was 2007, last chemo 2008. Past Surgical History: 1. Hysterectomy. 2. Ileostomy. 3. Bone marrow removal. Allergy: Erythromycin. Physical exam general: intubated obese Neck; Supple, No elevated JVD hear: RRR, normal S1,2 no murmur or rub Chest: CTAB, no rales or wheezes Abdomen: abdominal dressing with Drainage tubes Extremities No edema or ulcer Assessment And Plan: ROXANA resolved due to prerenal azotemia will switch to 1/2 NS Bowel obstruction S/P surgical intervention Septic shock cont on Abx Now on Merrem, Doxy and Micafungin Respiratory Failure intubated thrombocytopenia possibly due to Sepsis +/- Abx will cont to monitor and transfuse if Plt<10 or overt bleeding total time spent 35minutes Physical Examination - Vital Signs Temperature: 100.7 F Blood Pressure: 112/80 Pulse: 89 Respirations: 25 Pulse Ox (%): 98 - Studies Medications List Reviewed: Yes
--- NOTE | 2020-01-19 11:09 | P.PN ---
Subjective Date of Service: 01/27/20 Primary Care Provider: Dr. Hughes Chief Complaint: Respiratory failure Subjective: Improving Patient is 74 years of age doing better she is more alert responsive patient is febrile blood culture is use positive Review of Systems is unable to be obtained Physical Examination - Vital Signs Temperature: 100.7 F Blood Pressure: 112/80 Pulse: 89 Respirations: 25 Pulse Ox (%): 98 - Physical Exam General: Alert Neck: Supple Respiratory: Clear to auscultation bilaterally Cardiovascular: No edema, Regular rate/rhythm - Studies Medications List Reviewed: Yes Assessment & Plan - Problems (Diagnosis) (1) Peritonitis Status: Resolved Plan: Continue with meropenem patient's is febrile thrombocytopenic possible DIC normal white count had an anti fungal agent continue with meropenem repeat blood cultures sputum cultures (2) Respiratory failure Status: Acute Plan: Patient is doing much better blood cultures positive for yeast change to Yonny nargis Dc Diflucan at doxycycline for the possibility of Mr SA continue with meropenem patient's vital signs are stable plan to start weaning the patient off from the ventilator only on 30% oxygen also approved 4 L tach thrombocytopenia improving Qualifiers: Chronicity: acute
[2020-01-19] MEDS: LORazepam 2 MG/ML VIAL IV PRN ×2 (14:08→16:18)
[2020-01-19] MEDS: MIDAZOLAM HCL 2 MG/2 ML INJ IV PRN (15:54)
[2020-01-19] MEDS: LIPIDS IV SCH ×8 (17:30)
[2020-01-19] MEDS: AMINO ACIDS 10% IV SCH ×8 (17:30)
[2020-01-19] MEDS: DEXTROSE 10% IV SCH ×8 (17:30)
[2020-01-19] MEDS: WATER IV SCH ×8 (17:30)
[2020-01-19] MEDS: [UNRECOGNIZED DRUG - OTHER] IV SCH ×8 (17:30)
[2020-01-19] MEDS: SODIUM HYPOCHLORITE 0.25% 473 ML TOP SCH (20:39)
[2020-01-20] MEDS: Meropenem 1,000 MG in NA CHLORIDE 0.9% 100 ML IV SCH ×2 (00:36→08:34)
[2020-01-20] MEDS: INSULIN -REGULAR HUMAN 50 UNIT/0.5 ML ML SQ SCH ×4 (04:00→12:00)
[2020-01-20 05:00] VITALS: BMI 46.7
[2020-01-20 05:28] LABS: Absolute Lymphocytes (CBC) 0.7 K/uL (0.7-4.9); Basophils % 0.9 % (0-1.3); Hematocrit 31.9 % (36.0-45.0); Lymphocytes % 10.1 % (15.3-44.8); MPV 12.9 fL (7.6-11.3)
[2020-01-20 05:44] LABS: Albumin 1.5 g/dL (3.4-5.0); Magnesium 2.4 mg/dL (1.8-2.4); Phosphorus 5.6 mg/dL (2.5-4.9)
[2020-01-20] MEDS ORDERED: DEXTROSE 10%-WATER 500 ML IV ONE (07:51)
[2020-01-20] MEDS: MICAFUNGIN SODIUM 100 MG in NA CHLORIDE 0.9% 100 ML IV SCH (08:31)
[2020-01-20] MEDS: THIAMINE 200 MG/2 ML INJ IVP SCH (08:32)
[2020-01-20] MEDS: FAMOTIDINE 20 MG/2 ML VIAL IV SCH (08:32)
[2020-01-20] MEDS: DOXYCYCLINE 100 MG in NA CHLORIDE 0.9% 100 ML IVPB SCH (08:33)
[2020-01-20] MEDS: FENTANYL CITR 100 MCG/2 ML IV PRN ×2 (08:55→13:52)
[2020-01-20] MEDS ORDERED: Ringers Lactate 1,000 ML IV ONE (11:35)
--- NOTE | 2020-01-20 11:36 | P.PN ---
Subjective Date of Service: 01/27/20 Primary Care Provider: Dr. Hughes Chief Complaint: Respiratory failure Patient is doing much better issues alert responsive cooperative being weaned off the ventilator still febrile more responsive stable to be transferred to an LTAC Review of Systems is unable to be obtained Physical Examination - Vital Signs Temperature: 100.2 F Blood Pressure: 84/61 Pulse: 100 Respirations: 38 Pulse Ox (%): 98 - Physical Exam General: Alert, Oriented x1 Respiratory: Clear to auscultation bilaterally, Diminished, Friction rub Cardiovascular: Normal S1 S2 - Studies Medications List Reviewed: Yes Assessment & Plan - Problems (Diagnosis) (1) Respiratory failure Status: Acute Plan: Patient is clinically improving more alert responsive still has borderline temperature although the peaks been declining add cultures positive for yeast continue with present treatment patient is a thrombocytopenia is now stabilizing on TPN blood pressure is slightly low blood pressure is slightly low I have added lactated Ringer's Qualifiers: Chronicity: acute
--- NOTE | 2020-01-20 13:13 | P.PN ---
Subjective Date of Service: 01/20/20 Primary Care Provider: Dr. Hughes Chief Complaint: Respiratory failure subjective 74-year-old female with significant past medical history of rectal cancer, status post surgery, radiation and chemotherapy back in 2007 admitted with bowel obstruction , pt didnt respond to medical treatment , scheduled for surgery, now intubated today still intubated , no change in clinical ststus cont to spike fever Cont Abx as per ID Plt down to 27, will cont to monitor plan to discharge to [facility] today Past Medical History: 1. Hypertension. 2. Rectal CA status post resection, status post chemo and radiation, diagnosis was 2007, last chemo 2008. Past Surgical History: 1. Hysterectomy. 2. Ileostomy. 3. Bone marrow removal. Allergy: Erythromycin. Physical exam general: intubated obese Neck; Supple, No elevated JVD hear: RRR, normal S1,2 no murmur or rub Chest: CTAB, no rales or wheezes Abdomen: abdominal dressing with Drainage tubes Extremities upper extremity edema Assessment And Plan: ROXANA resolved due to prerenal azotemia will switch to 1/2 NS Bowel obstruction S/P surgical intervention Septic shock cont on Abx Now on Merrem, Doxy and Micafungin Respiratory Failure intubated thrombocytopenia possibly due to Sepsis +/- Abx will cont to monitor and transfuse if Plt<10 or overt bleeding total time spent 35minutes Physical Examination - Vital Signs Temperature: 100.7 F Blood Pressure: 112/80 Pulse: 89 Respirations: 25 Pulse Ox (%): 98 - Studies Medications List Reviewed: Yes Assessment And Plan Physician Review Additional Text: Impression: Small-bowel obstruction with ischemic bowel status post emergent exploratory laparotomy, extensive lysis of adhesions, small-bowel resection with anastomosis , drainage of intra-abdominal abscess Positive blood culture for fungal infection Acute respiratory failure with cardiac arrest Acute renal injury Hypertension Hyperlipidemia Elevated liver function Thrombocytopenia likely related to inflammatory response/sepsis verses early DIC Coffee-ground emesis Plan: Small-bowel obstruction with ischemic bowel status post emergent exploratory laparotomy, extensive lysis of adhesions, small-bowel resection with anastomosis , drainage of intra-abdominal abscess now with fever suspect early sepsis: Patient remains intubated. She is less alert today and less cooperative. Blood pressure remained slightly low. Patient still running fevers requiring cooling blanket. She failed her extubation trial yesterday. Platelets appear improved. No need for transfusion at this time. Continue TPN. Will discuss with nephrology about the possibility of adding IV fluids. Surgery has adjusted wound care. Surgery mentioned the other day that the patient not ready for NG tube feeds. Continue to monitor closely. I have updated the on the patient's current status and change from yesterday. Social work yesterday reported patient has been approved to go to the long-term acute care facility. Will discuss with team on whether patient is stable to be transferred. If so will transfer patient to long-term acute care facility to continue her care. Positive blood culture for fungal infection: Results still pending for sensitivities. Continue on Diflucan. Will discuss with Critical Care. Will consider Infectious Disease console to further address. Acute respiratory failure with cardiac arrest: Anticipate patient to be weaned off ventilator today. Acute renal injury: Nephrology continues to make adjustments to TPN. Patient may require IV fluids. Hypertension: Patient remains on off blood pressure medication Hyperlipidemia: Will hold medication at this time Elevated liver function: Liver function shows improvement.. Thrombocytopenia likely related to inflammatory response/sepsis verses early DIC : Case discussed with hematology. Thrombocytopenia improved. No need for transfusion today. Keep platelet count above 20. If fibrinogen less than 100 then patient may require cryoprecipitate. Coffee-ground emesis: No drop in hemoglobin noted. Hemoglobin stable this time. Continue to monitor closely. NG tube has been clamped as per surgery.
[2020-01-20] MEDS: PROMETHAZINE INJ 25 MG/ML AMP IV PRN (13:52)
[2020-01-27 11:03] VITALS: BP 116/70; TEMP 97.9
== END 2020-01-20 14:30 | DRG 329 ==
LOC: ER 19:31 → ERHOLD 23:24 → 2ND 01-04 01:26 → 3RD-ICU 01-09 11:28
PROVIDERS: ADMIT Internal Medicine; ATTEND Family Medicine
PROC: 0W9G00Z Drainage of Peritoneal Cavity with Drainage Device, Open Approach (ICD-10-PCS; 2020-01-09)
PROC: 5A12012 Performance of Cardiac Output, Single, Manual (ICD-10-PCS; 2020-01-09)
PROC: 06HY33Z Insertion of Infusion Device into Lower Vein, Percutaneous Approach (ICD-10-PCS; 2020-01-09)
PROC: 30233R1 Transfusion of Nonautologous Platelets into Peripheral Vein, Percutaneous Approach (ICD-10-PCS; 2020-01-09)
PROC: 0DNW0ZZ Release Peritoneum, Open Approach (ICD-10-PCS; 2020-01-12)
PROC: 5A1955Z Respiratory Ventilation, Greater than 96 Consecutive Hours (ICD-10-PCS; 2020-01-12)
PROC: 0BH17EZ Insertion of Endotracheal Airway into Trachea, Via Natural or Artificial Opening (ICD-10-PCS; 2020-01-12)
PROC: 0DT80ZZ Resection of Small Intestine, Open Approach (ICD-10-PCS; principal; 2020-01-12 07:30)
PROC: 3E0436Z Introduction of Nutritional Substance into Central Vein, Percutaneous Approach (ICD-10-PCS; 2020-01-16)
DX: K56.50 Intestinal adhesions [bands], unspecified as to partial versus complete obstruction (principal); N17.0 Acute kidney failure with tubular necrosis; I46.8 Cardiac arrest due to other underlying condition; G93.41 Metabolic encephalopathy; K63.1 Perforation of intestine (nontraumatic); K65.1 Peritoneal abscess; J96.00 Acute respiratory failure, unspecified whether with hypoxia or hypercapnia; T81.12XA Postprocedural septic shock, initial encounter; Z68.41 Body mass index [BMI] 40.0-44.9, adult; E87.0 Hyperosmolality and hypernatremia; I47.2 Ventricular tachycardia; T81.44XA Sepsis following a procedure, initial encounter; E46 Unspecified protein-calorie malnutrition; B49 Unspecified mycosis; Z88.1 Allergy status to other antibiotic agents; Z66 Do not resuscitate; Z88.8 Allergy status to other drugs, medicaments and biological substances; Z85.048 Personal history of other malignant neoplasm of rectum, rectosigmoid junction, and anus; Z90.710 Acquired absence of both cervix and uterus; E78.5 Hyperlipidemia, unspecified; Z92.21 Personal history of antineoplastic chemotherapy; Z92.3 Personal history of irradiation; Z93.2 Ileostomy status; Z79.899 Other long term (current) drug therapy; E87.6 Hypokalemia; E83.52 Hypercalcemia; E83.39 Other disorders of phosphorus metabolism; K59.09 Other constipation; N18.9 Chronic kidney disease, unspecified; I13.10 Hypertensive heart and chronic kidney disease without heart failure, with stage 1 through stage 4 chronic kidney disease, or unspecified chronic kidney disease; T88.59XA Other complications of anesthesia, initial encounter; K21.9 Gastro-esophageal reflux disease without esophagitis; G62.9 Polyneuropathy, unspecified; J45.909 Unspecified asthma, uncomplicated; E66.01 Morbid (severe) obesity due to excess calories; Z85.038 Personal history of other malignant neoplasm of large intestine; I49.9 Cardiac arrhythmia, unspecified; Z79.891 Long term (current) use of opiate analgesic; E83.42 Hypomagnesemia; R79.89 Other specified abnormal findings of blood chemistry; D69.6 Thrombocytopenia, unspecified; T36.8X5A Adverse effect of other systemic antibiotics, initial encounter
CPT/HCPCS: 36415; 36430; 70450; 71045; 74018; 74176; 74250; 76705; 80048; 80053; 80069; 80076; 80202; 81001; 81003; 81015; 82550; 82553; 82570; 82728; 82805; 82947; 83010; 83605; 83615; 83690; 83735; 84100; 84132; 84145; 84156; 84300; 84484; 84550; 85014; 85018; 85025; 85044; 85049; 85384; 85610; 85730; 86850; 86900; 86901; 87040; 87070; 87077; 87086; 87088; 87186; 87205; 88307; 93005; 93306; 94002; 94003; 95816; 96361; 96365; 96366; 96375; 99285; J0610; J1100; J1450; J1650; J1940; J2248; J2250; J2270; J2370; J2405; J2543; J2550; J2704; J2997; J3010; J3411; J3475; J7030; J7040; J7060; J7120; J7799; P9035; P9045

== ENCOUNTER 2022-09-03 06:24 | Day surgery (SDC) | payer OTHER ==
[2022-08-28 14:46] LABS: Absolute Lymphocytes (CBC) 2.8 K/uL (0.7-4.9); Hematocrit 42.4 % (36.0-45.0); Lymphocytes % 26.9 % (15.3-44.8); MPV 8.7 fL (7.6-11.3); RBC Red Blood Cell Count 4.51 M/uL (3.86-4.86)
--- NOTE | 2022-08-28 14:54 | RAD REPORT ---
EXAM DESCRIPTION: RAD - Chest Pa And Lat (2 Views) - 08/28/2022 2:49 pm CLINICAL HISTORY: pre op for surgery COMPARISON: Chest Single View dated 01/16/2020; Chest Single View dated 01/15/2020; Chest Single View dated 01/14/2020; Chest Single View dated 01/13/2020 FINDINGS: Lines: None. Lungs: No evidence of edema or pneumonia. Pleural: No significant pleural effusions or pneumothorax. Cardiac: The heart size is within normal limits. Mediastinum: Within normal limits. Bones: No acute fractures. Fusion hardware in the spine. Other: None IMPRESSION: No acute cardiopulmonary disease.
[2022-08-28 16:02] LABS: Potassium 3.7 mmol/L (3.5-5.1)
--- NOTE | 2022-08-31 15:15 | EKG ---
Test Date: 2022-08-28 Test Time: 14:16:17 Adolescent Counselor: BOBY MEASUREMENT RESULTS: Intervals: Rate: 57 TN: 144 QRSD: 138 QT: 468 QTc: 455 [place]: P: 72 TN: 144 QRS: -71 T: 16 INTERPRETIVE STATEMENTS: Sinus bradycardia Right bundle branch block Left anterior fascicular block Bifascicular block Abnormal ECG Compared to ECG 01/10/2020 04:23:35 Sinus rhythm no longer present Bifascicular block still present Electronically Signed On 08-31-22 15:10:52 MATERIAL CONTROL ASSOCIATE by Prabhakar Devries
--- NOTE | 2022-09-02 13:15 | PREOPHP ---
Date of Admission: 09/03/2022 History Of Present Illness: This patient presented to my office with a chief complaint of a painful 5th toe on the right foot present for approximately 4 months, moderate in severity, sore, throbbing i n nature, worse with activity, improved with removal of shoe gear. The patient has been evaluated by Dr. Ramirez with a normal arterial Doppler study and a normal venous study. Past Medical History: Includes GERD, increased cholesterol. Allergies: SEASONAL ALLERGIES. DICTATION ENDS HERE. ROSELYN Voice ID: [id number]
--- NOTE | 2022-09-02 13:45 | PREOPHP ---
Date of Admission: 09/03/2022 History Of Present Illness: This patient presented to my office with chief complaint of painful fift h toe present on the right foot for approximately 4 months. Pain is throbbing in nature, moderate in severity, relieved by rest, worse with activity and shoe gear. Patient has tried padding, changing her shoe gear, all to no avail including treatments by our office conservatively, which have not reli eved her pain and the patient requested surgical management. Past Medical History: Includes arthritis, cancer including lymphoma and rectal cancer, increased cho lesterol, hypertension, obesity, GERD, eczema, and varicosities of the veins. Past Surgical History: Includes tonsillectomy, hysterectomy, shoulder surgery, sinusectomy, carpal t unnel, ileostomy, and arthroscopy of the knee joint. Family History: Includes arthritis and diabetes and hypertension in her father. Medications: Include omeprazole 20 mg, rosuvastatin 10 mg, methocarbamol 500 mg, fluoxetine 60 mg, a torvastatin 10 mg, montelukast 10 mg, tramadol 50 mg, pravastatin 40 mg, nadolol 80 mg, triamterene/h ydrochlorothiazide 75-50 mg, and pregabalin 75 mg. Allergies: TO BACTRIM, ERYTHROMYCIN, AND PAMELOR. Social History: Patient is a former tobacco user. No history of alcohol or IV drug use. Review of Systems: Cardiovascular: Includes complains of cold feet. Musculoskeletal: Includes joint implants, restricted motion, stiffness, low back pain. Physical Examination: Constitutional: General appearance: Patient is healthy, well developed, well nourished, oriented x3 . Vascular: Evaluation reveals dorsalis pedis and posterior tibial pulses to be 4/4 bilaterally. Capi llary refill time is less than 3 seconds. Feet are warm to the touch. Claudication is not noted. R est pain is not noted. There is +1 nonpitting edema of the left leg and the right leg isolated to th e leg, ankle and foot. Musculoskeletal: Evaluation reveals a semiflexible cavus foot type bilaterally. Subtalar joint show s increased varus bilaterally and forefoot supinatus with adductus bilaterally. There is a medial em inence of first metatarsal head with range of motion 65 degrees on the right. Hallux valgus noted on the right. Equinus is noted to be -5 degrees bilaterally per goniometer measurement. Muscle, knee and ankle assessment are all within normal limits. No subcutaneous soft tissue masses are noted. No tenderness on the plantar fascia. Digits of the right foot are noted to be contracted at the MPJ an d abduction but a rectus floating fifth toe contracted at the MPJ dorsally, mildly at the PIPJ. The digits to the left foot were noted to be normal in alignment. Skin: Evaluation reveals no rash, ulcer, tumor, or contracture. Patient does have redness of the to es uniformly. It blanches with pressure and elevation. There are mild varicosities noted to the low er leg and ankle bilaterally. Neurologic: Evaluation reveals deep tendon reflexes of the patella and Achilles to be 5/5 bilaterall y. Vibratory and sharp dull sensation are within normal limits. Imaging: X-ray evaluation of the right foot reveals a fused DIPJ within it which is enlarged with sp urring of the fifth toe and contracture of the PIPJ. Diagnosis: Hammertoe deformity, right foot, with pain in right toes. Recommendations: The recommended procedure is for an arthroplasty of the fifth toe with possible exo stectomy of the DIPJ of the fifth toe. The patient has been explained she will need to be in a posto p shoe 2 to 3 weeks and should be able to resume her sneaker after. The patient was also explained t he increased risk of COVID during this time and following CDC guidelines recommended to prevent infec tion or increased recent blood clots. Patient understands the above-mentioned discussion and wishes to proceed with surgery. The patient declines a seal-tight device to keep the bandage dry, but was e xplained she needs to keep her bandages dry postoperatively. Patient understands the risks, benefits , and alternatives of the above-mentioned procedure including, but not limited to, the risk of pain, swelling, numbness, stiffness, infection, nonhealing of skin or soft tissue and recurrence of the con tracture or deformity and discomfort. Patient has had preoperative arterial studies and venous studi es done by Dr. Ramirez. All within normal limits. The patient is scheduled for surgery on September 03, 2022. Lab work has been performed. It was within normal limits. Medical H and P will be completed by Anesthesia. LB/KAELA Voice ID: [id number]
[2022-09-03] MEDS ORDERED: propofoL 200 MG/20 ML VIAL IV ONE (07:12)
[2022-09-03] MEDS ORDERED: MIDAZOLAM HCL 2 MG/2 ML INJ ONE (07:12)
[2022-09-03] MEDS ORDERED: LIDOCAINE 1% MPF 5 ML VIAL ONE (07:13)
[2022-09-03] MEDS ORDERED: FENTANYL CITR 100 MCG/2 ML ONE (07:13)
[2022-09-03] MEDS ORDERED: dexAMETHasone 4 MG/ML VIAL ONE (07:18)
[2022-09-03] MEDS ORDERED: LIDOCAINE 1% 20 ML MDV ONE (07:19)
[2022-09-03] MEDS ORDERED: Mastisol Adhesive Liq ONE (07:19)
[2022-09-03] MEDS ORDERED: BUPIVACAINE 0.5% PF 10 ML VIAL ONE (07:19)
[2022-09-03] MEDS ORDERED: KETOROLAC 30 MG/ML INJ ONE (07:42)
[2022-09-03] MEDS ORDERED: ONDANSETRON 4 MG/2 ML VIAL ONE (07:45)
--- NOTE | 2022-09-03 09:47 | RAD REPORT ---
EXAM DESCRIPTION: RAD - Foot Right 3 View - 09/03/2022 8:46 am CLINICAL HISTORY: S/P RT FOOT ARTHROPLASTY 5TH TOE COMPARISON: No comparisons FINDINGS: Postsurgical changes are seen involving the fifth toe. Large posterior and plantar calcane al spurs.
[2022-09-03 10:40] VITALS: BP 149/70; TEMP 97; O2SAT 99
--- NOTE | 2022-09-03 18:51 | OP ---
Date of Procedure: 09/03/2022 Surgeon: Keny Reddy DPM Preoperative Diagnosis: Hammertoe deformity, fifth digit, right foot. Postoperative Diagnosis: Hammertoe deformity, fifth digit, right foot. Procedure: Arthroplasty with middle hemiphalangectomy, fifth digit, right foot. Anesthesia: General. Description Of Procedure: Patient was brought into the operating room, placed on the operating table in supine position. General anesthesia was induced and the fifth toe was injected with 4 cc of 0.5% Marcaine plain for anesthesia. The patient was prepped and draped in usual sterile manner. The rig ht extremity was elevated and the Esmarch bandage was applied to exsanguinate the blood supply. Pneu matic ankle tourniquet was elevated to 250 mmHg and the Esmarch was removed. Procedure: Attention was then directed to the fifth toe, right foot, where 2 semi-elliptical converg ing incisions were made from proximal lateral to distal medial 1 cm in length and a wedge of skin was removed utilizing 15 blade. The incision was deepened via sharp and blunt dissection. All neurolog ic structures were avoided. All bleeders were clamped and bovied. The toe was plantar flexed at the PIPJ and the extensor digitorum longus tendon was transected utilizing a 15 blade. The medial and l ateral collateral ligaments were incised utilizing a 15 C blade. The head of the proximal phalanx wa s brought into view and resected utilizing a double-action bone cutter. All rough edges were smoothe d, utilizing a rongeur and a rasp. The extensor tendon was then freed proximally to the MPJ to relea se any contractures. The middle phalanx was then approached with a 15 C blade and the lateral aspect was freed from its soft tissue attachments and a double-action bone cutter was used to remove half o f the middle phalanx. A rasp was then used to smooth any rough bumps on the lateral side of the DIPJ and remaining middle phalanx. The area was flushed with copious amounts sterile saline. Tendon was then reapproximated with the toe held in the derotated fashion with 3-0 Vicryl. Skin was reapproxim ated with the toe held in a derotated fashion with 4-0 Prolene horizontal mattress suture. Good rect us alignment was seen to the toe at this time without contracture. The bony prominences were resolve d on the lateral side of the fifth toe. The toe was dressed with Adaptic. Tourniquet was then relea sed. Capillary return was seen to be instantaneous to all digits. The toe was then dressed with Bet adine-soaked gauze, plain gauze, 2-inch Jailene, and an Don bandage. The patient will be sent to [facility] in satisfactory condition. LB/KAELA Voice ID: [id number] Report ID: [id number]
--- NOTE | 2022-09-03 18:58 | DS ---
Date of Discharge: 09/03/2022 Date Of Surgery: 09/03/2022 Surgeon: Keny Reddy DPM Preoperative Diagnosis: Hammertoe deformity, fifth digit, right foot. Postoperative Diagnosis: Hammertoe deformity, fifth digit, right foot. Procedure: Arthroplasty with middle hemiphalangectomy, fifth digit, right foot. Anesthesia: General. Hospital Course: Patient tolerated the procedure and anesthesia well, and was sent to recovery in sa tisfactory condition. Will be discharged per anesthesia guidelines to home. May resume normal diet and ambulate in a postop shoe. Patient has written postop instructions and postop medication for justo n and emergency phone number. The patient was seen in my office for postoperative care in 1 week. LB/KAELA Voice ID: [id number] Report ID: [id number]
== END 2022-09-03 10:19 | disposition home or self-care (01) ==
LOC: OR 06:24
PROVIDERS: ATTEND Podiatrist
PROC: 0YBM0ZZ Excision of Right Foot, Open Approach (ICD-10-PCS; principal; 2022-09-03 07:30)
DX: M20.41 Other hammer toe(s) (acquired), right foot (principal); I10 Essential (primary) hypertension; E78.00 Pure hypercholesterolemia, unspecified; K21.9 Gastro-esophageal reflux disease without esophagitis; Z85.038 Personal history of other malignant neoplasm of large intestine; Z88.1 Allergy status to other antibiotic agents
CPT/HCPCS: 28160; 93005; 85025; 80048; 36415; 71046; 73630; J2704; J2001; J3010; J2405; J1100; J2250

== ENCOUNTER 2024-02-28 07:43 | Day surgery (SDC) | payer OTHER ==
--- NOTE | 2024-02-25 15:19 | RAD REPORT ---
EXAM DESCRIPTION: Constantino Mejia (2 Views)02/25/2024 3:05 pm CLINICAL HISTORY: Preop for left arm surgery COMPARISON: 2021 FINDINGS: The lungs appear clear of acute infiltrate. The heart is mildly enlarged. Neurostimulator device in place IMPRESSION: No acute abnormalities displayed
[2024-02-25 15:21] LABS: Absolute Basophils 0.1 K/uL (0-0.5); Absolute Eosinophils 0.1 K/uL (0-0.5); Absolute Monocytes 0.7 K/uL (0.1-1.3); Absolute Neutrophil 3.4 K/uL (1.8-8.0); Basophils % 0.9 % (0-1.3); Eosinophils % 1.2 % (0-4.4); Hematocrit 40.1 % (36.0-45.0); Hemoglobin 12.6 g/dL (12.0-15.0); Lymphocytes % 32.3 % (15.3-44.8); MCHC 31.5 g/dL (32.0-36.0); MCV 92.1 fL (80-100); MPV 8.2 fL (7.6-11.3); Monocytes % 10.8 % (3.3-12.3); Neutrophils % 54.8 % (41.7-73.7); Nucleated Red Blood Cells % 0.1 % (0-0); Platelets 211 thou/uL (152-406); RBC Red Blood Cell Count 4.35 M/uL (3.86-4.86); Red Cell Distribution Width 16.9 % (12.1-15.2)
[2024-02-25 15:40] LABS: Anion Gap 4.5 mEq/L (5.0-15.0); Potassium 3.5 mEq/L (3.5-5.1)
[2024-02-28] MEDS: Ringers Lactate 1,000 ML IV ONE (08:21)
[2024-02-28] MEDS ORDERED: LIDOCAINE 1% MPF 5 ML VIAL ONE (08:49)
[2024-02-28] MEDS ORDERED: propofoL 200 MG/20 ML VIAL IV ONE (08:49)
[2024-02-28] MEDS ORDERED: FENTANYL CITR 100 MCG/2 ML ONE (08:51)
[2024-02-28] MEDS ORDERED: MIDAZOLAM HCL 2 MG/2 ML INJ ONE (08:51)
[2024-02-28] MEDS: CEFAZOLIN SODIUM 1 GM/VIAL ONE (09:26)
[2024-02-28] MEDS ORDERED: dexAMETHasone 4 MG/ML VIAL ONE (09:59)
[2024-02-28] MEDS ORDERED: KETOROLAC 30 MG/ML INJ ONE (09:59)
[2024-02-28] MEDS ORDERED: ONDANSETRON 4 MG/2 ML VIAL ONE (09:59)
--- NOTE | 2024-02-28 10:10 | P.BOP ---
Preoperative diagnosis: left anterior forearm tender subQ mass 8x8cm Postoperative diagnosis: same Primary procedure: Excisional biopsy left anterior forearm tender subQ mass 8x5 cm Estimated blood loss: <10cc Specimen: fatty mass Findings: mass Anesthesia: General Complications: None Transferred to: Recovery Room Condition: Good
[2024-02-28 11:50] VITALS: BP 116/51; TEMP 97.1; O2SAT 96
--- NOTE | 2024-02-28 13:26 | EKG ---
Test Date: 2024-02-25 Test Time: 14:44:49 Engineering Program Manager: JULIO CESAR MEASUREMENT RESULTS: Intervals: Rate: 58 SD: 170 QRSD: 144 QT: 472 QTc: 463 [place]: P: 72 SD: 170 QRS: -63 T: -10 INTERPRETIVE STATEMENTS: Sinus bradycardia Right bundle branch block Left anterior fascicular block Bifascicular block Moderate voltage criteria for LVH, may be normal variant Abnormal ECG Compared to ECG 08/28/2022 14:16:17 Left ventricular hypertrophy now present Bifascicular block still present Electronically Signed On 02-28-24 13:18:42 CDT by Prabhakar Devries
--- NOTE | 2024-02-28 20:59 | DS ---
Date of Discharge: 02/28/2024 Diagnosis: Left anterior forearm tender subcutaneous mass. Procedure: Excisional biopsy of left anterior forearm tender subcutaneous mass. Condition: Stable. Disposition: Home. Activity: As tolerated. No heavy lifting. Plan: Follow up in my office in 1 week. Call for appointment at [phone]. Keep area dry, intact until see us again in our office. ANIL/KAELA Voice ID: [id number] Report ID: [id number]
--- NOTE | 2024-02-28 20:59 | OP ---
Date of Procedure: 02/28/2024 Surgeon: Domingo Ruelas MD Preoperative Diagnosis: Left anterior forearm tender subcutaneous mass. Postoperative Diagnosis: Left anterior forearm tender subcutaneous mass. Procedure: Excisional biopsy of left anterior forearm tender subcutaneous mass 8 x 5 cm. Estimated Blood Loss: Less than 10 cc. Specimen: Fatty mass. Finding: Fatty tumor. Anesthesia: General plus local. Indications For Procedure: This is a case of a 78-year-old patient with a palpable mass in the left forearm. It is increasing in size giving her pain and discomfort. She wants that excised. The bene fits, alternatives, and risks of excision fully explained, which include, but not limited to, infecti on, bleeding, damage to adjacent structures, anesthesia complication, recurrence, [place], and even . She also understands this may not relieve any symptoms. She might need more than one surgical inte rvention. She understood, signed a consent. Description Of Procedure: The area of concern was marked by me and the patient in the holding room. Patient was brought to the operating room, placed in supine position. Anesthesia was done without c omplication. A time-out was called. Incision was made in the left forearm and incision was carried down to subcutaneous tissue. We noticed this fatty tumor present. It was carefully excised. It leblanc s not penetrate the muscle. Mass was excised and then after that, obtained hemostasis, local anesthe tic, and then after that, I closed the area with subcutaneous tissue 3-0 chromic and then subcuticula r 3-0 chromic and then a 3-0 nylon on top. Sponge counts and instrument counts were correct. Patien t tolerated the procedure well. Patient sent on her way to recovery in stable condition. ANIL/KAELA Voice ID: [id number] Report ID: [id number]
== END 2024-02-28 11:43 | disposition home or self-care (01) ==
LOC: OR 07:43
PROVIDERS: ATTEND Surgery
PROC: 0JBH0ZZ Excision of Left Lower Arm Subcutaneous Tissue and Fascia, Open Approach (ICD-10-PCS; principal; 2024-02-28 10:45)
DX: D17.22 Benign lipomatous neoplasm of skin and subcutaneous tissue of left arm (principal); I10 Essential (primary) hypertension; K21.9 Gastro-esophageal reflux disease without esophagitis; E78.00 Pure hypercholesterolemia, unspecified; Z86.718 Personal history of other venous thrombosis and embolism
CPT/HCPCS: 93005; 85025; 80048; 36415; 88304; 71046; 11406; J2704; J1100; J2001; J2250; J3010; J2405; J7120; J0690

== ENCOUNTER 2024-11-03 15:11 | Emergency (ER) | payer OTHER ==
--- NOTE | 2024-11-03 16:38 | RAD REPORT ---
EXAMINATION: CT LUMBAR SPINE WITHOUT CONTRAST CLINICAL INDICATION: Female, 79 years old. PAIN TECHNIQUE: Axial CT images were obtained through the lumbar spine in soft tissue and bone windows wit hout intravenous contrast. Coronal and Sagittal reformatted images were created from the data set. One or more of the following dose reduction techniques were used: Automated exposure control, adjustm ent of the mA and/ or kV according to patient size, and/or iterative reconstruction. Unless otherwise specified, incidental findings do not require dedicated imaging follow-up. [id number]. COMPARISON: 03/22/2020 CT abdomen and pelvis FINDINGS: ALIGNMENT: The lumbar spine demonstrates normal alignment without scoliosis or spondylolisthesis. BONES: Status post L1-L4 fusion. There is osseous fusion across the L3-4 disc space. Interbody cages present at L1-2. There is incomplete osseous fusion across this disc space. Left hemilaminectomy at L2-3 and L3-4 DISCS: Postoperative fusion at L3-4. Interbody cage at L1-2 with incomplete osseous fusion. Moderate disc height loss at L2-3. Mild disc height loss at L4-5 and L5-S1. No definite high-grade central spinal stenosis. There is a posterior spur at L2-3 but there has been a prior left hemilaminectomy. T he central canal is not well assessed due to streak artifact SOFT TISSUE: IVC filter. Moderate stool in the rectum. Atherosclerosis.. Multiple incompletely evalua leonid renal lesions which may represent cysts. These are grossly similar to 03/22/2020 CT. Spinal stimulator. IMPRESSION: No acute fracture involving the lumbar spine. Postoperative changes from L1 through L4 fusion without evidence of hardware complications.
[2024-11-03] MEDS ORDERED: DIAZEPAM 5 MG TABLET ONE (17:24)
[2024-11-03] MEDS ORDERED: HYDROCODONE/APAP 5/325 MG TAB ONE (17:24)
--- NOTE | 2024-11-03 17:34 | EDPHYS ---
Physician Documentation [facility] Name: Layla Rivas Age: 79 yrs Sex: Female : 1945 Arrival Date: 11/03/2024 Time: 15:11 Bed 12 Private MD: ED Physician Gage Landis HPI: 11/03 20:14 This 79 yrs old Female presents to ER via Wheelchair with complaints of Fall Injury, ms3 Back Pain. 20:14 Layla Rivas is a 79-year-old female who presents to the Emergency Department with acute ms3 back pain. She reports that the pain started this morning after she fell around 10 o'clock. The fall occurred because she tripped on something in her house. She describes the pain as being across her back and rates it as 10 out of 10 on the pain scale. She mentions that avoiding movement helps prevent worsening of the pain.. Historical: - Allergies: 15:37 Bactrim; ss 15:37 Erythromycin; ss 15:37 Pamelor; ss - PMHx: 15:37 follicular lymphoma; Hypertension; RECTAL CA; ss - Immunization history:: Adult Immunizations unknown. - Infectious Disease History:: Denies. - Social history:: Smoking status: Patient denies any tobacco usage or history of. ROS: 20:14 Constitutional: Negative for fever, and chills. Cardiovascular: Negative for chest ms3 pain, and palpitations. Respiratory: Negative for shortness of breath, cough, wheezing, and pleuritic chest pain, Abdomen/GI: Negative for abdominal pain, nausea, vomiting, diarrhea, and constipation, 20:14 Back: Positive for Lower back pain, Exam: 20:14 Constitutional: This is a well developed, well nourished patient who is awake, alert, ms3 and in no acute distress. Chest/axilla: Normal chest wall appearance and motion. Nontender with no deformity. Cardiovascular: Regular rate and rhythm with a normal S1 and S2. No gallops, murmurs, or rubs. Normal PMI, no JVD. No pulse deficits. Respiratory: Lungs have equal breath sounds bilaterally, clear to auscultation and percussion. No rales, rhonchi or wheezes noted. No increased work of breathing, no retractions or nasal flaring. Abdomen/GI: Soft, non-tender, with normal bowel sounds. No distension or tympany. No guarding or rebound. No evidence of tenderness throughout. 20:14 Back: pain, that is moderate, of the low back area, ROM is normal, normal spinal alignment noted, vertebral tenderness, is not appreciated, muscle spasm, is appreciated in the low back area, Vital Signs: 15:36 Pain 10/10; ss 16:30 BP 124 / 68; Pulse 76; Resp 17; Temp 98.1; Pulse Ox 98% ; ko1 18:00 BP 125 / 72; Pulse 69; Resp 16; Temp 98.4; Pulse Ox 98% ; me1 15:36 Pain Scale: Adult ss MDM: 15:45 Medical Screening Exam initiated ms3 20:14 Differential diagnosis: contusion, fracture, sprain, strain. Data reviewed: vital ms3 signs, nurses notes, radiologic studies, and as a result, I will discharge patient. I considered the following discharge prescriptions or medication management in the emergency department Medications were administered in the Emergency Department. See MAR. Historians other than the Patient: Spouse/Significant Other: Patient's . Counseling: I had a detailed discussion with the patient and/or guardian regarding the historical points, exam findings, and any diagnostic results supporting the discharge/admit diagnosis, the need for outpatient follow up, to return to the emergency department if symptoms worsen or persist or if there are any questions or concerns that arise at home. Special discussion: I discussed with the patient/guardian in detail that at this point there is no indication for admission to the hospital. It is understood, however, that if the symptoms persist or worsen the patient needs to return immediately for re-evaluation. ED course: Patient symptoms improved after medication administration. Patient to follow-up with her primary care physician 2 to 3 days. Patient states she has tramadol and methocarbamol at home. Instructed patient to continue her home medications. All questions were answered. Return precautions discussed include worsening symptoms, incontinence, numbness, or any other concerns. 11/03 15:45 Order name: CT Lumbar Spine Wo Con; Complete Time: 16:55 ms3 Administered Medications: 17:27 Drug: HYDROcodone-acetaminophen PO 5 mg-325 mg 1 tabs PO once Route: PO; me1 17:52 Follow up: Response: No adverse reaction; Pain is decreased me1 17:27 Drug: Diazepam PO 5 mg PO once Route: PO; me1 17:52 Follow up: Response: No adverse reaction; Pain is decreased me1 Disposition Summary: 11/03/24 17:33 Discharge Ordered Notes: Location: Home ms3 Condition: Stable ms3 Diagnosis - Fall on same level, unspecified ms3 - Low back pain ms3 Followup: ms3 - With: Private Physician - When: 2 - 3 days - Reason: Recheck today's complaints Discharge Instructions: - Discharge Summary Sheet ms3 - Acute Back Pain, Adult ms3 Forms: - Medication Reconciliation Form ms3 - Antibiotic Education ms3 - Prescription Opioid Use ms3 - Patient Portal Instructions ms3 - Leadership Thank You Letter ms3 Signatures: Dispatcher [employer] EDMS Mary Edwards, RN RN Gage Landis DO DO ms3 Marcela Booker RN RN me1 Corrections: (The following items were deleted from the chart) 15:46 15:45 Spine Lumbar Wo [id number].[id number] ordered. EDMS EDMS
--- NOTE | 2024-11-03 17:34 | ER ---
Nurse's Notes [facility] Name: Layla Rivas Age: 79 yrs Sex: Female : 1945 Arrival Date: 11/03/2024 Time: 15:11 Bed 12 Private MD: Diagnosis: Fall on same level, unspecified;Low back pain Presentation: 11/03 15:36 Chief complaint: Patient states: low back pain after tripping and falling this am. ss Coronavirus screen: Client denies travel out of the [place] in the last 14 days. Ebola Screen: Patient denies exposure to infectious person. Patient denies travel to an Ebola-affected area in the 21 days before illness onset. Initial Sepsis Screen: Does the patient meet any 2 criteria? No. Patient's initial sepsis screen is negative. Does the patient have a suspected source of infection? No. Patient's initial sepsis screen is negative. Risk Assessment: Do you want to hurt yourself or someone else? Patient reports no desire to harm self or others. Onset of symptoms was November 03, 2024. 15:36 Method Of Arrival: Wheelchair ss 15:36 Acuity: ANTONIA 3 ss Historical: - Allergies: 15:37 Bactrim; ss 15:37 Erythromycin; ss 15:37 Pamelor; ss - PMHx: 15:37 follicular lymphoma; Hypertension; RECTAL CA; ss - Immunization history:: Adult Immunizations unknown. - Infectious Disease History:: Denies. - Social history:: Smoking status: Patient denies any tobacco usage or history of. Screenin:25 [facility] ED Fall Risk Assessment (Adult) History of falling in the last 3 months, me1 including since admission No falls in past 3 months (0 pts) Confusion or Disorientation No (0 pts) Intoxicated or Sedated No (0 pts) Impaired Gait No (0 pts) Mobility Assist Device Used No (0 pt) Altered Elimination No (0 pt) Score/Fall Risk Level 0 - 2 = Low Risk Maintained a safe environment, Provided non-skid footwear, Hourly rounding (assess needs \T\ fall precautionary measures) done. Abuse screen: Denies threats or abuse. Nutritional screening: No deficits noted. Tuberculosis screening: No symptoms or risk factors identified. Assessment: 17:25 General: Appears uncomfortable, obese, well groomed, well developed, Behavior is calm, me1 cooperative, appropriate for age, Reports low back pain after tripping and falling this am. Pain: Complains of pain in left low back Pain does not radiate. Pain currently is 10 out of 10 on a pain scale. Quality of pain is described as aching, crampy, Pain began suddenly, Is continuous. Neuro: Level of Consciousness is awake, alert, obeys commands, Oriented to person, place, time, situation, Appropriate for age. Cardiovascular: Patient's skin is warm and dry. Respiratory: Airway is patent Respiratory effort is even, unlabored, Respiratory pattern is regular, symmetrical. GI: No signs and/or symptoms were reported involving the gastrointestinal system. : No signs and/or symptoms were reported regarding the genitourinary system. EENT: No signs and/or symptoms were reported regarding the EENT system. Derm: Skin is intact, is healthy with good turgor, Skin is pink, warm \T\ dry. Musculoskeletal: Reports pain in left low back. Vital Signs: 15:36 Pain 10/10; ss 16:30 BP 124 / 68; Pulse 76; Resp 17; Temp 98.1; Pulse Ox 98% ; ko1 18:00 BP 125 / 72; Pulse 69; Resp 16; Temp 98.4; Pulse Ox 98% ; me1 15:36 Pain Scale: Adult ss ED Course: 15:15 Patient arrived in ED. ra3 15:28 Gage Landis DO is Attending Physician. ms3 15:37 Triage completed. ss 15:38 Arm band placed on left wrist. ss 16:20 CT Lumbar Spine Wo Con In Process Unspecified. EDMS 17:21 Marcela Booker, JOON is Primary Nurse. me1 17:25 Patient has correct armband on for positive identification. Bed in low position. Call me1 light in reach. Side rails up X2. Provided Education on: POC. Verbalized understanding.. Client placed on continuous cardiac and pulse oximetry monitoring. NIBP monitoring applied. Pulse ox on. NIBP on. 17:25 No provider procedures requiring assistance completed. Patient did not have IV access me1 during this emergency room visit. Administered Medications: 17:27 Drug: HYDROcodone-acetaminophen PO 5 mg-325 mg 1 tabs PO once Route: PO; me1 17:52 Follow up: Response: No adverse reaction; Pain is decreased me1 17:27 Drug: Diazepam PO 5 mg PO once Route: PO; me1 17:52 Follow up: Response: No adverse reaction; Pain is decreased me1 Medication: 17:25 VIS not applicable for this client. me1 Outcome: 17:33 Discharge ordered by . ms3 18:15 Discharged to home via wheelchair, with significant other, me1 18:15 Condition: stable 18:15 Discharge instructions given to patient, significant other, Instructed on discharge instructions, follow up and referral plans. Demonstrated understanding of instructions, follow-up care, 18:15 Patient left the ED. me1 Signatures: Dispatcher [employer] EDMS Mary Edwards RN RN ss Gage Landis DO DO ms3 Fiordaliza Yen RN RN ko1 Marcela Booker RN RN me1 Cherrie Giraldo ra3 Corrections: (The following items were deleted from the chart) 17:49 15:36 Chief complaint: Patient states: low back pain after tripping and falling this am me1 ss
[2024-11-03 18:35] VITALS: O2SAT 98
[2024-11-03 18:36] VITALS: BP 125/72; TEMP 98.4
== END 2024-11-03 18:15 | disposition home or self-care (01) ==
LOC: ER 15:11
DX: M54.50 Low back pain, unspecified (principal); W18.30XA Fall on same level, unspecified, initial encounter
CPT/HCPCS: 72131; 99283